=== PATIENT | female | born 1975 | race Caucasian/White ===

== ENCOUNTER 2023-06-27 11:28 | Outpatient (CLI) | payer MEDICAID, SELFPAY | END 2023-06-27 11:29 | disposition home or self-care (01) | PROVIDERS: PCP Family Medicine; Visit Provider Family Medicine | DX: Z00.00 Encounter for general adult medical examination without abnormal findings (principal); E06.3 Autoimmune thyroiditis; R09.89 Other specified symptoms and signs involving the circulatory and respiratory systems; R00.0 Tachycardia, unspecified; Z11.59 Encounter for screening for other viral diseases | CPT/HCPCS: 80053; 80061; 84439; 84443; 86803 ==

== ENCOUNTER 2023-07-01 08:09 | Outpatient (CLI) | payer MEDICAID, SELFPAY | END 2023-07-01 08:10 | disposition home or self-care (01) | LOC: NFLDREF 07-04 05:16 | PROVIDERS: PCP Family Medicine; Referring Provider Family Medicine; Visit Provider Family Medicine | DX: R00.0 Tachycardia, unspecified (principal); R09.89 Other specified symptoms and signs involving the circulatory and respiratory systems | CPT/HCPCS: 82384; 83835 ==

== ENCOUNTER 2023-07-30 08:49 | Outpatient (CLI) | payer MEDICAID, SELFPAY | END 2023-07-30 08:50 | disposition home or self-care (01) | PROVIDERS: PCP Family Medicine; Visit Provider Family Medicine | DX: Z00.00 Encounter for general adult medical examination without abnormal findings (principal); E06.3 Autoimmune thyroiditis; R09.89 Other specified symptoms and signs involving the circulatory and respiratory systems; Z13.21 Encounter for screening for nutritional disorder; Z87.898 Personal history of other specified conditions | CPT/HCPCS: 82306; 82607; 83735; 84439; 84443 ==

== ENCOUNTER 2024-01-23 17:08 | Outpatient (CLI) | payer OTHER, SELFPAY | END 2024-01-23 17:09 | disposition home or self-care (01) | PROVIDERS: PCP Family Medicine; Visit Provider Family Medicine | DX: R42 Dizziness and giddiness (principal) | CPT/HCPCS: 84439; 84443 ==

== ENCOUNTER 2024-05-14 12:17 | Outpatient (CLI) | payer OTHER, SELFPAY | END 2024-05-14 12:18 | disposition home or self-care (01) | PROVIDERS: PCP Family Medicine; Visit Provider Family Medicine | DX: R53.83 Other fatigue (principal); E03.9 Hypothyroidism, unspecified | CPT/HCPCS: 84439; 84443 ==

== ENCOUNTER 2025-02-04 09:46 | Emergency (ER) | payer OTHER, SELFPAY ==
[2025-02-04 09:53] VITALS: BP 159/96; PULSE 96; RESP 20; TEMP 36.6; O2SAT 99; BMI 22.3
--- NOTE | 2025-02-04 12:42 | ED_ITS ---
HPI - General Adult General Date Seen: 02/04/25 Chief complaint: Dizziness/Vertigo Stated complaint: Dizziness, had high BP Time Seen by Provider: 02/04/25 12:27 History of Present Illness HPI narrative: Patient is a 49-year-old woman with complex past medical history here for several episodes of dizziness over the past week. She has a fairly long history of dizzy episodes associated with reported high heart rate and high blood pressures, she has been seen by multiple outside providers for this and has had a stress test, echo, ZIO patch. No specific etiology was found. 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 She says for the past year she has been on 1 particular kind and feels like the dizzy spells have been improved. In the past week she has had 3 episodes lasting about 1 hour each where she has felt dizzy, it these episodes have been marked more with a motion sensation than the lightheadedness that she experienced previously. She is not symptomatic right now aside from a general sense of feeling ?off, but she says this is her baseline. She does note that her heart rate and blood pressure have been increased during these spells. She had an albuterol inhaler for an asthma test this past week and she wonders if this might have set off these symptoms. She denies other specific new problems such as fevers, vomiting, diarrhea, bloody stools, etcetera. Does note that her ferritin has been low in the past but says her hemoglobin is always been normal. Related Data Home Medications ?Medication ?Instructions ?Recorded ?Confirmed levothyroxine 125 mcg tablet 125 mcg PO DAILY 05/14/24 02/04/25 (Unithroid) Previous Rx's ?Medication ?Instructions ?Recorded meclizine 25 mg tablet 25 mg PO BID PRN #10 tabs 02/04/25 Allergies Allergy/AdvReac Type Severity Reaction Status Date / Time No Known Drug Allergies Allergy Verified 02/04/25 09:58 Review of Systems Status of ROS: Reports: 10 or more systems reviewed and unremarkable except as noted in History and below [facility] Medical History URI (upper respiratory infection) ?J06.9 - Acute upper respiratory infection, unspecified (ICD-10) Cough ?R05.9 - Cough, unspecified (ICD-10) delivery delivered ?O82 - Encounter for delivery without indication (ICD-10) Scoliosis ?M41.9 - Scoliosis, unspecified (ICD-10) Family History Mother H/O cancer of gall bladder Father Prostate cancer Exam Narrative: Exam Narrative: Vital signs reviewed In general, alert, nontoxic Head: Normocephalic, atraumatic. Eyes: Sclera clear. Pupils equal and reactive. Extraocular movements are full, no nystagmus. ENT: Mucous membranes moist. Neck: Supple without adenopathy. Heart: Regular rate and rhythm without murmur. Lungs: Clear. No increased work of breathing, crackles or wheezes. Abdomen: Soft, nontender to palpation. Extremities: Well perfused, pulses intact. No significant edema. Neurologic: Alert, conversant. Speech fluent, face symmetric. Moves all extremities equally. No ataxia. Skin: Warm, dry well perfused. Affect: Normal. Const: Vital Signs, click to edit/add: Vital Signs - 24 hr 02/04/25 09:53 Temperature 97.9 F Pulse Rate [Pulse Oximeter] 96 Respiratory Rate 20 Blood Pressure [Ri ght Upper Arm] 159/96 H Pulse Oximetry 99 Oxygen Delivery Me thod Room Air Course Course ED Course: I reviewed her records with us. Below is copied from her annual exam with Dr. Rapp: Patient presents to clinic with a challenging 2 year history of symptoms that have been managed by endocrinology, Cardiology, otolaryngology, Rheumatology, urgent cares and the emergency department. She also has an upcoming appointment with flat locker. She comes with no records. Originally this was supposed to be a physical, but we had to convert this to a new patient establishment of care secondary to time. It took 30 minutes to room the patient, and over an hour of seeing the patient [id number] in order to obtain this history. Patient is exceptionally loquacious and challenging to redirect. She states she does not feel heard. Patient has a history of labile blood pressures but no true diagnosis of hypertension. She has a history of fluctuating thyroid levels for which she has been on varying doses of levothyroxine but only in the past 2 years, otherwise she has been stable at her current dose for almost 2 decades. She has also been on name brand Synthroid as well as generic levothyroxine. She has episodic tachycardia, flushing, and anxiety although when I specifically asked her about many of the symptoms she then denied having them despite having already told me that they were present. She again brings up with me these episodes of high pulse and blood pressure, I have explained with her that I am not going to have an explanation for these as they have been thoroughly explored by specialists without a clear explanation. Her vital signs right now are normal. I will recheck labs including a TSH and free T4, in the past she has had mildly elevated T4 is although it looks as if she has at times declined to change her thyroid medication even when this was elevated. Any case I would refer any changes in her medication for her thyroiditis to her curriculum designer. It does sound as if there is more of a motion component to these episodes this week, discussed with her that this may be more of a vertigo. Certainly does not sound to be a central vertigo, it is very positional and self limited. I reviewed all of her labs with the exception of her thyroid test which are still pending. All of her labs are normal. Her EKG shows a sinus rhythm, ventricular rate of 70, no acute ST segment changes, normal QT, normal T-waves. I have discussed these findings with her, I have recommended that we let her go home as if her thyroid needs to be addressed I would recommend that she do that through her curriculum designer. We will call her if that needs to be addressed. I am going to prescribe meclizine which she can certainly try. Would recommend primary care follow-up, she can knowledge is that she has seen many different people for primary care and is not currently associated with anyone person or clinic system. Recommended that she try to find someone that she can see on a more consistent basis. Return any time for acute worsening or new symptoms. Vital Signs Vital signs: Initial Vital Signs Temperature 97.9 F 02/04/25 09:53 Temperature Source Temporal Artery Scan 02/04/25 09:53 Pulse Rate 96 02/04/25 09:53 Pulse Rhythm Regular 02/04/25 09:53 Pulse Strength 3+ Normal 02/04/25 09:53 Respiratory Rate 02/04/25 09:53 Blood Pressure 159/96 H 02/04/25 09:53 Blood Pressure Mean 117 H 02/04/25 09:53 Blood Pressure Position Sitting 02/04/25 09:53 Pulse Oximetry 99 02/04/25 09:53 Oxygen Delivery Method Room Air 02/04/25 09:53 Vital Signs Temperature 97.9 F 02/04/25 09:53 Pulse Rate 96 02/04/25 09:53 Respiratory Rate 20 02/04/25 09:53 Blood Pressure 159/96 H 02/04/25 09:53 Pulse Oximetry 99 02/04/25 09:53 Oxygen Delivery Method Room Air 02/04/25 09:53 Temperature 97.9 F 02/04/25 09:53 Pulse Rate 96 02/04/25 09:53 Respiratory Rate 02/04/25 09:53 Blood Pressure 159/96 H 02/04/25 09:53 Pulse Oximetry 99 02/04/25 09:53 Oxygen Delivery Method Room Air 02/04/25 09:53 Medical Decision Making Lab Data Lab results reviewed: Yes I reviewed the patient's lab results Labs: Lab Results 02/04/25 Range/Units 13:00 WBC 7.58 (4.50-11.00) K/uL RBC 4.68 (4.00-5.20) m/uL Hgb 14.4 (12.0-16.0) gm/dL Hct 43.0 (33.0-51.0) % MCV 92 (80-100) fL MCH 31 (26-34) pg MCHC 34 (32-36) gm/dL RDW Coeff of Jamila 12.9 (11.5-15.5) % Plt Count 348 (140-440) K/uL Neut % (Auto) 69.4 (42.0-72.0) % Lymph % (Auto) 21.6 (20-44) % Loíza % (Auto) 7.1 (0.0-11.0) % Eos % (Auto) 0.1 (0.0-7.0) % Baso % (Auto) 0.7 (0.0-3.0) % Neut # (Auto) 5.26 (1.7-7.0) K/uL Lymph # (Auto) 1.64 (0.90-2.90) K/uL Loíza # (Auto) 0.50 (0.00-0.90) K/UL Eos # (Auto) 0.01 (0.00-0.50) K/uL Baso # (Auto) 0.05 (0.00-0.30) K/uL Abs Immat Gran (auto) 0.08 (0.00-0.30) K/uL Imm/Tot Granulo (auto) 1.1 % Sodium 140 (135-149) mmol/L Potassium 3.9 (3.6-5.1) mmol/L Chloride 105 (96-114) mmol/L Carbon Dioxide 26 (20-32) mmol/L Anion Gap 9 (7-15) mEq/L BUN 13 (7-30) mg/dL Creatinine 0.8 (0.5-1.5) mg/dL Estimated Creat Clear 84.87 Estimated GFR 90 ml/min Glucose 98 (60-115) mg/dL Calcium 9.3 (8.4-10.6) mg/dL Total Bilirubin 0.7 (0.1-1.5) mg/dL Direct Bilirubin 0.2 (0.0-0.5) mg/dL AST 23 (12-35) U/L ALT 18 (4-35) U/L Alkaline Phosphatase 53 (40-150) U/L Troponin I < 0.01 (0.01-0.04) ng/mL Total Protein 7.7 (6.0-8.3) g/dL Albumin 4.7 (3.3-5.0) g/dL Discharge Plan Discharge Clinical Impression: Dizzy spells Patient Disposition: Home, Self-Care Condition: Stable Instructions: Dizziness (ED) Additional Instructions: I have sent a prescription for meclizine for you, you can certainly try this if you have further dizzy spells. Your thyroid tests are pending, if you have my chart you can check these, otherwise if there is anything abnormal we will call you. I would ask you to discuss any results with your curriculum designer in terms of medication adjustment. Primary care follow-up recommended if you continue to have problems with dizziness. All of your other labs are normal today, your EKG is also. Prescriptions: New meclizine 25 mg tablet 25 mg PO BID PRNQty: 10 0RF No Action levothyroxine [Unithroid] 125 mcg tablet 125 mcg PO DAILY Follow Up/Referrals: Toño Myers MD [Staff Physician] - Stand Alone Forms: [employer] Info Instructions
[2025-02-04 13:19] LABS: Basophils Absolute Auto 0.05 K/uL (0.00-0.30); Basophils Percent Auto 0.7 % (0.0-3.0); Eosinophils Absolute Auto 0.01 K/uL (0.00-0.50); Eosinophils Percent Auto 0.1 % (0.0-7.0); Hemoglobin* 14.4 gm/dL (12.0-16.0); Immature Granulocytes Abs Auto 0.08 K/uL (0.00-0.30); Immature Granulocytes Pct Auto 1.1 %; Lymphocytes Absolute Auto 1.64 K/uL (0.90-2.90); Lymphocytes Percent Auto 21.6 % (20-44); Mean Corpuscular HGB Conc 34 gm/dL (32-36); Mean Corpuscular Hemoglobin 31 pg (26-34); Mean Corpuscular Volume 92 fL (80-100); Monocytes Percent Auto 7.1 % (0.0-11.0); Neutrophils Absolute Auto 5.26 K/uL (1.7-7.0); Neutrophils Percent Auto 69.4 % (42.0-72.0); Platelet Count* 348 K/uL (140-440); RDW Coefficient of Variation % 12.9 % (11.5-15.5); Red Blood Count 4.68 m/uL (4.00-5.20); White Blood Count* 7.58 K/uL (4.50-11.00)
[2025-02-04 13:21] LABS: Slide Review Reflex No
[2025-02-04 13:27] LABS: Albumin* 4.7 g/dL (3.3-5.0); Chloride* 105 mmol/L (96-114); Potassium* 3.9 mmol/L (3.6-5.1); Sodium* 140 mmol/L (135-149)
[2025-02-04 13:29] LABS: Alanine Aminotransferase* 18 U/L (4-35); Anion Gap 9 mEq/L (7-15); Aspartate Amino Transferase* 23 U/L (12-35); Blood Urea Nitrogen* 13 mg/dL (7-30); Carbon Dioxide* 26 mmol/L (20-32); Creatinine* 0.8 mg/dL (0.5-1.5); Est. Creatinine Clearance* 84.87; Estimated Glomerular Filt Rate 90 ml/min
[2025-02-04 13:30] LABS: Alkaline Phosphatase* 53 U/L (40-150); Bilirubin Direct* 0.2 mg/dL (0.0-0.5); Bilirubin Total* 0.7 mg/dL (0.1-1.5); Calcium* 9.3 mg/dL (8.4-10.6); Glucose* 98 mg/dL (60-115); Total Protein* 7.7 g/dL (6.0-8.3)
[2025-02-04 13:44] LABS: Troponin I* < 0.01 ng/mL (0.01-0.04)
--- OUTSIDE RECORDS SUMMARY | 2025-02-04 17:02 | XMS_ITS | Encounter Summary ---
Author Organization [facility] Address [address] [place] [address] Care Team Providers Care Sock And Stocking Ironer Name Role Phone Vicente Avalos MD Unavailable [phone] Dahlia Colindres MD Unavailable [phone] Dahlia Colindres MD Unavailable [phone] Jerson Rodriguez MD Unavailable [phone] Angel James MD Unavailable [phone] Kell Harding MD Primary Care Provider + [phone] Loulou Cage Unavailable Unavailable Ky Talamantes MD Unavailable [phone] Kell Harding MD Unavailable [phone] Ky Talamantes MD Unavailable [phone] Jazz Linn MD Unavailable [phone] Margarette Montemayor NP Unavailable [phone] Zina Og Unavailable Veda Diaz PA-C Unavailable [phone] Veda Diaz PA-C Unavailable [phone] Veda Diaz PA-C Unavailable [phone] None Primary Care Provider Unavailabl e Tejal Jules MD Primary Care Provider [phone] Tejal Jules MD Unavailable [phone] Reason for Visit * Reason Onset Date Comments Transfer of Care 10/31/2023 Encounter Details Date Type Department Care Team (Late st Contact Info) Description 10/31/[address] [address] Margarette Montemayor NP Transfer of Care Social History Tobacco Use Types Packs/Day Years Used Date Smoking Tobacco: Never Passive Smoke Exposure: Never Smokeless Tobacco: Never Alcohol Use Standard Drinks/Week Comments Never 0 (1 standard drink = 0.6 oz pur e alcohol) never PHQ-2 Answer Date Recorded PHQ-2 Score 0 10/29/2023 Adolescent Education Answer Date Record ed Getting School Help Needed Not on file 06/18 Interpersonal Safety Answer Date Record ed Do you feel physically and e motionally safe where you currently live? Yes 10/29/2023 Within the past 12 months, h ave you been hit, slapped, kicked or otherwise physically hurt by someone? No 10/29/2023 Within the past 12 months, h ave you been humiliated or emotionally abused in other ways by your partner or ex-partner? 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 Please review and advise if Pt is okay to transfer care? Pt is scheduled with Veda Diaz for an December appt in [place](Pt did not want to wait until April to get in in [facility]) to establish care/OSIEL. Action Taken: Message routed to: Adult Clinics: Rheumatology p [id number] ITAL ACCOUNT MANAGER documented in this encounter Plan of Treatment Upcoming Encounters Date Type Department Care Team (Late st Contact Info) Description 02/05/2025 8:00 AM CDT Virtual Visit [facility] [address] [place] [phone] Dahlia Frost [facility] [address] [place] [phone] documented as of this encounter Visit Diagnoses Not on filedocumented in this encounter Additional Health Concerns Assessment Noted Time PHQ-9 Depression Total Score: 0 04/05/20 22 9:42 AM CDT documented as of this encounter Care Teams Sock And Stocking Ironer Relationship Specialty Start Date End Date Kell Harding MD [address] [place] [address] PCP - General Internal Medicine - Pediatrics 02/26/23 02/26/24 None PCP - General 02/27/24 03/10/24 Tejal Jules MD [address] [place] [address] PCP - General Family Medicine 03/11/24 Vicente Avalos MD [address] [facility] [address] [place] [address] Assigned Heart and Vascular Provider 03/03/22 08/14/24 Dahlia Colindres MD [address] [place] [address] Ophthalmology 12/28/22 06/10/24 Dahlia Colindres MD [address] [place] [address] Assigned Surgical Provider 01/12/23 07/14/24 Jerson Rodriguez MD [address] [facility] [address] [place] [id number] Internal Medicine 02/14/23 Angel James MD [address] [facility], [address] [place], [place] [address] Resident Internal Medicine - Pediatrics 02/14/23 Loulou Cage Personal Advocate & Liaison (PAL) 02/26/23 01/20/24 Ky Talamantes MD [address] [place] [address] Neurology 03/04/23 Kell Harding MD [address] [facility] [place] [address] Assigned PCP 03/02/23 09/13/24 Ky Talamantes MD [address] [place] [address] Assigned Neuroscience Provider 03/16/23 09/13/24 Jazz Linn MD [address] [place] [address] Assigned Endocrinology Provider 08/31/23 Margarette Montemayor PHYSICAL THERAPY AIDES TEACHER Assigned Rheumatology Provider 10/17/23 11/14/23 Zina Og MBBS [address] [place] [address] Rheumatology 11/08/23 11/19/23 Veda Diaz PA-C [address] [place] [address] Physician Security System Technician Rheumatology 11/20/23 Veda Diaz PA-C [address] [place] [address] Physician Security System Technician Rheumatology 11/20/23 11/20/23 Veda Diaz PA-C [address] [place] [address] Assigned Rheumatology Provider 12/06/23 Tejal Jules MD [address] [address] Assigned PCP 09/14/24 documented as of this encounter
--- OUTSIDE RECORDS SUMMARY | 2025-02-04 17:02 | XMS_ITS | Encounter Summary ---
Author Organization [facility] Address [address] [place] [address] Care Team Providers Care Educational Speech Language Clinician Name Role Phone Vicente Avalos MD Unavailable [phone] Dahlia Colindres MD Unavailable [phone] Dahlia Colindres MD Unavailable [phone] Jerson Rodriguez MD Unavailable [phone] Angel James MD Unavailable [phone] Kell Harding MD Primary Care Provider + [phone] Loulou Cage Unavailable Unavailable Ky Talamantes MD Unavailable [phone] Kell Harding MD Unavailable [phone] Ky Talamantes MD Unavailable [phone] Jazz Linn MD Unavailable [phone] Margarette Montemayor NP Unavailable [phone] Zina Og Unavailable Veda Diaz PA-C Unavailable [phone] Veda Diaz PA-C Unavailable [phone] Veda Diaz PA-C Unavailable [phone] None Primary Care Provider Unavailabl e Tejal Jules MD Primary Care Provider [phone] Tejal Jules MD Unavailable [phone] Encounter Details Date Type Department Care Team ([facility] Contact Info) Description 04/04/2023 MyC Medical Advice [facility] [place] [address] [facility] [address] [place] [address] Kell Harding MD [address] [facility] [place] [address] Social History Tobacco Use Types Packs/Day Years Used Date Smoking Tobacco: Never Smokeless Tobacco: Never Alcohol Use Standard Drinks/Week Comments Never 0 (1 standard drink = 0.6 oz pur e alcohol) never Humiliation, Afraid, Rape, and Kick questionnair e Answer Date Recorded Within the last year, have y ou been afraid of your partner or ex-partner? No 01/02/2023 Within the last year, have y ou been humiliated or emotionally abused in other ways by your partner or ex-partner? No Within the last year, have y ou been kicked, hit, slapped, or otherwise physically hurt by your partner or ex-partner? No 01/02/2023 Within the last year, have y ou been raped or forced to have any kind of sexual activity by your partner or ex-partner? 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 No / Unsure 03/14/2023 8:27 AM CDT documented as of this encounter Plan of Treatment Upcoming Encounters Date Type Department Care Team (Late Contact Info) Description 02/05/2025 8:00 AM CDT Virtual Visit [facility] [place] [address] [facility] [address] [place] [phone] Dahlia Frost, PA-C [address] [place] [address] documented as of this encounter Visit Diagnoses Not on filedocumented in this encounter Additional Health Concerns Assessment Noted Time PHQ-9 Depression Total Score: 0 04/05/20 9:42 AM CDT documented as of this encounter Care Teams Educational Speech Language Clinician Relationship Specialty Start Date End Date Kell Harding MD [address] [place] [address] PCP - General Internal Medicine - Pediatrics 02/26/23 02/26/24 None PCP - General 02/27/24 03/10/24 Tejal Jules MD [address] [place] [address] PCP - General Family Medicine 03/11/24 Vicente Avalos MD [address] [place] [address] Assigned Heart and Vascular Provider 03/03/22 08/14/24 Dahlia Colindres MD [address] [place] [address] Ophthalmology 12/28/22 06/10/24 Dahlia Colindres MD [address] [place] [address] Assigned Surgical Provider 01/12/23 07/14/24 Jerson Rodriguez MD [address] [place] [address] Internal Medicine 02/14/23 Angel James MD [address] [facility] [place] [address] Resident Internal Medicine - Pediatrics 02/14/23 Loulou Cage Personal Advocate & Liaison (PAL) 02/26/23 01/20/24 Ky Talamantes MD [address] [place], [place] [id number] Neurology 03/04/23 [place] [address] [place] [address] [place] [address] Assigned PCP 03/02/23 09/13/24 Ky Talamantes MD [address] [place], [place] [id number] Assigned Neuroscience Provider 03/16/23 09/13/24 Jazz Linn MD [address] [place] [phone] Assigned Endocrinology Provider 08/31/23 Margarette Montemayor, BICYCLE MECHANIC Assigned Rheumatology Provider 10/17/23 11/14/23 Zina Og MBBS [address] [place] [address] Rheumatology 11/08/23 11/19/23 Veda Diaz PA-C [address] [place] [address] Physician Bread Room Hand Rheumatology 11/20/23 Veda Diaz PA-C [address] [place] [address] Physician Bread Room Hand Rheumatology 11/20/23 11/20/23 Veda Diaz PA-C [address] [place] [address] Assigned Rheumatology Provider 12/06/23 Tejal Jules MD [address] [facility] [address] [place] [address] Assigned PCP 09/14/24 documented as of this encounter
--- OUTSIDE RECORDS SUMMARY | 2025-02-04 17:02 | XMS_ITS | Clinical Summary ---
Author Organization [facility] Address [address] [place] [address] Care Team Providers Care Signal Worker Name Role Phone None, Md Primary Care Provider [facility] Clinic, No Primary Unavailable Unavailable Allergies No known active allergies Medications UNITHROID 125 mcg oral tablet Take 1 tablet (125 mcg) by mouth once daily. 07/06/2024 Active Active Problems No known active problems Social History Tobacco Use Types Packs/Day Years Used Date Smoking Tobacco: Never Smokeless Tobacco: Never Alcohol Use Standard Drinks/Week Comments Never 0 (1 standard drink = 0.6 oz pur e alcohol) Humiliation, Afraid, Rape, and Kick questionnair e Answer Date Recorded Within the last year, have y ou been afraid of your partner or ex-partner? No 10/16/2023 Within the last year, have y ou been humiliated or emotionally abused in other ways by your partner or ex-partner? No Within the last year, have y ou been kicked, hit, slapped, or otherwise physically hurt by your partner or ex-partner? No 10/16/2023 Within the last year, have y ou been raped or forced to have any kind of sexual activity by your partner or ex-partner? No 10/16/2023 Comments Unknown Sex and Gender Information Value Date Recorded Sex Assigned at Not on file Legal Sex Female 12:50 PM CDT Gender Identity Not on file Sexual Orientation Not on file Last Filed Vital Signs Vital Sign Reading Time Taken Comments Blood Pressure 128/82 07/09/2024 1:04 PM CDT Pulse 80 07/09/2024 1:04 PM CDT Temperature 35.9 C (96.7 F) 07/09/2024 1:04 PM CDT Respiratory Rate 16 10/16/2023 1:48 PM DELIVERY MOTORCYCLE DRIVER Oxygen Saturation 96% 10/16/2023 1:48 PM DELIVERY MOTORCYCLE DRIVER Inhaled Oxygen Concentration - - Weight 65.4 kg (144 lb 3.2 oz) 07/09/2024 1:04 P M CDT Height 170.2 cm (5' 7) 01/27/2024 4:21 PM CDT Body Mass Index 22.58 01/27/2024 4:21 PM CDT Plan of Treatment Health Maintenance Due Date Last Done Comments Colonoscopy 1974 Lipid Screening 1974 Pap Smear 1974 Anxiety Screening (INÉS-2) 1975 Depression Assessment (PHQ-2) 1975 Adult Tetanus Booster 11/26/2023 11/25/2013 , 08/11/2003, 08/11/2003, Additional history exists COVID-19 Vaccine (1 - season) 2024 Pneumococcal 50+ Years (1 of 1 - PCV) 2024 Zoster Vaccine (1 of 2) 2024 Yearly Review of HCD 10/15/2024 10/16/2023 Influenza Vaccine (Season Ended) 2025 06/23/2009, 06/23/2009, 06/23/2009 Mammogram Screening 01/20/2026 01/21/2024, 01/21/2024, 07/09/2023, Additional history exists RSV Vaccines (1 - 1-dose 75+ series) 2049 Hepatitis C Screening Completed 11/28/2016 Meningococcal B Vaccine Aged Out No l onger eligible based on patient's age to complete this topic Insurance [facility] Care Teams Signal Worker Relationship Specialty Start Date End Date None, PCP - General Family Medicine - 08/07/23 Clinic, No Primary PCP - Primary Care Clinic 08/07/23
--- OUTSIDE RECORDS SUMMARY | 2025-02-04 17:02 | XMS_ITS | Referral Summary ---
Author Organization [facility] Address [address] [place] [address] Care Team Providers Care Organ Grinder Name Role Phone None, Md Primary Care Provider [facility] e Clinic, No Primary Unavailable Unavailable [...] CDT Respiratory Rate 16 10/16/2023 1:48 PM PHOTOGRAPHIC EDITOR Oxygen Saturation 96% 10/16/2023 1:48 PM PHOTOGRAPHIC EDITOR Inhaled Oxygen Concentration - - Weight 65.4 kg (144 lb 3.2 oz) 07/09/2024 1:04 P M CDT Height 170.2 cm (5' 7) 01/27/2024 4:21 PM CDT Body Mass Index 22.58 01/27/2024 4:21 PM CDT Plan of Treatment Not on file Insurance [place] [employer] [id number] [facility] OPEN ACCESS/CHOICE [facility] Care Teams Organ Grinder Relationship Specialty Start Date End Date None, PCP - General Family Medicine - 08/07/23 Clinic, No Primary PCP - Primary Care Clinic 08/07/23
--- OUTSIDE RECORDS SUMMARY | 2025-02-04 17:02 | XMS_ITS | Encounter Summary ---
Author Organization [facility] Address [address] [place] [address] Care Team Providers Care Shield Installer Name Role Phone Vicente Avalos MD Unavailable [phone] Dahlia Colindres MD Unavailable [phone] Dahlia Colindres MD Unavailable [phone] Jerson Rodriguez MD Unavailable [phone] Angel James MD Unavailable [phone] Kell Harding MD Primary Care Provider + [phone] Loulou Cage Unavailable Unavailable Ky Talamantes MD Unavailable [phone] Kell Harding MD Unavailable [phone] Ky Talamantes MD Unavailable [phone] Jazz Linn MD Unavailable [phone] Margarette Montemayor NP Unavailable +[phone] Zina Og Unavailable Veda Diaz PA-C Unavailable +[phone] Veda Diaz PA-C Unavailable [phone] Veda Diaz PA-C Unavailable + [phone] None Primary Care Provider Unavailabl e Tejal Jules MD Primary Care Provider [phone] Tejal Jules MD Unavailable [phone] Encounter Details Date Type Department Care Team (Late Contact Info) Description 09/03/2023 MyC Medical Advice [facility] [address] [place] [address] Jazz Linn MD [address] [place] [address] Social History Tobacco Use Types Packs/Day Years [...] Answer Date Recorded PHQ-2 Score 0 01/02/2023 Adolescent Education Answer Date Record ed Getting School Help Needed Not on file 06/18 Comments No Sex and Gender Information Value Date Recorded Sex Assigned at Not on file 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 Gender Identity Not on file Sexual Orientation Not on file 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 Not on file Not on f ile documented as of this encounter Plan of Treatment Upcoming Encounters Date Type Department Care Team (Late Contact Info) Description 02/05/2025 8:00 AM CDT Virtual Visit [facility] [address] 3rd [place] [phone] Dahlia Frost PA-Russell [address] [place] [address] [id number] documented as of this encounter Visit Diagnoses Not on filedocumented in this encounter Additional Health Concerns Assessment Noted Time PHQ-9 Depression Total Score: 0 04/05/20 9:42 AM CDT documented as of this encounter Care Teams Shield Installer Relationship Specialty Start Date End Date Kell Harding MD [address] [facility] [place] [address] PCP - General Internal Medicine - Pediatrics 02/26/23 02/26/24 None PCP - General 02/27/24 03/10/24 Tejal Jules MD [address] [facility] [address] [place] [address] PCP - General Family Medicine 03/11/24 Vicente Avalos MD [address] [place] [address] Assigned Heart and Vascular Provider 03/03/22 08/14/24 Dahlia Colindres MD [address] [place] [address] Ophthalmology 12/28/22 06/10/24 Dahlia Colindres MD [address] [place], [place] [id number] Assigned Surgical Provider 01/12/23 07/14/24 Jerson Rodriguez MD [facility] [place] [address] Internal Medicine 02/14/23 Angel James MD [address] [facility], ZET[address]22 [place], [place] [id number] Resident Internal Medicine - Pediatrics 02/14/23 Loulou Cage Personal Advocate & Liaison (PAL) 02/26/23 01/20/24 Ky Talamantes MD [address] [place], [place] [phone] Neurology 03/04/23 Kell Harding MD [address] [place] [address] Assigned PCP 03/02/23 09/13/24 Ky Talamantes MD [address] [place], [place] [address] Assigned Neuroscience Provider 03/16/23 09/13/24 Jazz Linn MD 909 [place] [phone] Assigned Endocrinology Provider 08/31/23 Margarette Montemayor, CONVEYOR MECHANIC Assigned Rheumatology Provider 10/17/23 11/14/23 Zina Og MBBS [address] [place], [place] [phone] Rheumatology 11/08/23 11/19/23 Veda Diaz PA-C [address] [place], [place] [phone] Physician Computer Repair Instructor Rheumatology 11/20/23 Veda Diaz PA-C [address] [place] [address] Physician Computer Repair Instructor Rheumatology 11/20/23 11/20/23 Veda Diaz PA-C [address] [place] [address] Assigned Rheumatology Provider 12/06/23 Tejal Jules MD [address] [address] Assigned PCP 09/14/24 documented as of this encounter
--- OUTSIDE RECORDS SUMMARY | 2025-02-04 17:03 | XMS_ITS | Encounter Summary ---
Author Organization [facility] Address [address] [place] [address] Care Team Providers Care Fire Fighter Airport Name Role Phone No Ref-Primary, Physician Primary Care Provider Vicente Avalos MD Unavailable [phone] Kory Garcia MD Unavailable Dahlia Colindres MD Unavailable [phone] Dahlia Colindres MD Unavailable [phone] Jerson Rodriguez MD Unavailable [phone] Angel James MD Unavailable [phone] Kell Harding MD Primary Care Provider + [phone] Loulou Cage Unavailable Unavailable Ky Talamantes MD Unavailable [phone] Kell Harding MD Unavailable [phone] Ky Talamantes MD Unavailable [phone] Jazz Linn MD Unavailable [phone] Margarette Montemayor NP Unavailable Zina Og Unavailable Veda Diaz PA-C Unavailable Veda Diaz PA-C Unavailable Rober Diazlandy Peacock PA-C Unavailable + [phone] None Primary Care Provider Unavailritesh e Tejal Jules MD Primary Care Provider + [phone] Tejal Jules MD Unavailable [phone] Reason for Visit * Reason Onset Date Comments Call Back 02/19/2023 Encounter Details Date Type Department Care Team (Late st Contact Info) Description 02/19/2023 Telephone [facility] Endocrinology Clinic [address] 3rd [place] [address] None Call Back Social History Tobacco Use Types Packs/Day Years [...] on file 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 No / Unsure 05/16/2023 12:38 PM CDT documented as of this encounter Miscellaneous Notes * Telephone Encounter - Saida Malhotra MD - 02/19/2023 9:43 PM CDT Endocrine triage 07/05/22 TSH 2.09, cortisol 10.2 11/29/22 metanephrine 0.35, normetanephrine 0.87, renin activity 1.4, aldosterone 9 02/12/23 TSh 0.6 02/19/23 ED visit TSH 1.91-- ED notes refer to LT4 dose changes. Dr Flores, please clarify what is the endocrine emergency? All of the endocrine tests are normal. Your note states she already has an enamel drier. The scheduled first available endocrine appointment timeframe is acceptable. E- consult may be an option for answer to specific question by the referring provider. E-consults generally have a responsewithin 3 days. Saida Malhotra MD * Telephone Encounter - Dee Renteria - 02/19/2023 1:03 PM CDT [facility] Call Center Phone Message May a detailed message be left on voicemail: yes Reason for Call: Appointment Intake Referring Provider Name: ELIDA FLORES, Diagnosis and/or Symptoms: History of Yusuf thyroiditis, Palpitations, Emergency: 1-2 Days Action Taken: Other: Endo Travel Screening: Not Applicable documented in this encounter Plan of Treatment Upcoming Encounters Date Type Department Care Team (Late st Contact Info) Description 02/05/2025 8:00 AM CDT Virtual Visit [facility] [address] [place] [address] Dahlia Frost PAYolis [address] [place] [phone] documented as of this encounter Visit Diagnoses Not on filedocumented in this encounter Additional Health Concerns Assessment Noted Time PHQ-9 Depression Total Score: 0 04/05/20 9:42 AM CDT documented as of this encounter Care Teams Fire Fighter Airport Relationship Specialty Start Date End Date No Ref-Primary, Physician PCP - General 03/02/22 02/25/23 Kell Harding MD [address] [facility] [place] [address] PCP - General Internal Medicine - Pediatrics 02/26/23 02/26/24 None PCP - General 02/27/24 03/10/24 Tejal Jules MD [address] [facility] 100 [place] [address] PCP - General Family Medicine 03/11/24 Vicente Avalos MD [address] [facility] [address] [place] [address] Assigned Heart and Vascular Provider 03/03/22 08/14/24 Kory Garcia MD [address] [place] [address] Assigned PCP 07/14/22 03/01/23 Dahlia Colindres MD [address] [place] [address] Ophthalmology 12/28/22 06/10/24 Dahlia Colindres MD [address] [place], [place] [address] Assigned Surgical Provider 01/12/23 07/14/24 Jerson Rodriguez MD [address] [place] [address] [place] [address] Internal Medicine 02/14/23 Angel James MD [address] [place] [address], [address] [place] [address] Resident Internal Medicine - Pediatrics 02/14/23 Loulou Cage Personal Advocate & Liaison (PAL) 02/26/23 01/20/24 Ky Talamantes MD [address] [place] [address] Neurology 03/04/23 Kell Harding MD [address] [place] [address] Assigned PCP 03/02/23 09/13/24 Ky Talamantes MD [address] [place] [address] Assigned Neuroscience Provider 03/16/23 09/13/24 Jazz Linn MD [address]09 [place] [phone] Assigned Endocrinology Provider 08/31/23 Margarette Montemayor NP Assigned Rheumatology Provider 10/17/23 11/14/23 Zina Og MBBS [address]45 [place] [address] Rheumatology 11/08/23 11/19/23 Veda Diaz PA-C [address] [place] [address] Physician Key Bed Installer Rheumatology 11/20/23 Veda Diaz PA-C [address] [place] [address] Physician Key Bed Installer Rheumatology 11/20/23 11/20/23 Veda Diaz PA-C [address] [place] [address] Assigned Rheumatology Provider 12/06/23 Tejal Jules MD [address] [address] Assigned PCP 09/14/24 documented as of this encounter
--- OUTSIDE RECORDS SUMMARY | 2025-02-04 17:03 | XMS_ITS | Encounter Summary ---
Author Organization [facility] Address [address] [place] [address] Care Team Providers Care Optical Glass Sawyer Name Role Phone No Ref-Primary, Physician Primary Care Provider Vicente Avalos MD Unavailable [phone] Kory Garcia MD Unavailable Dahlia Colindres MD Unavailable [phone] Dahlia Colindres MD Unavailable [phone] Jerson Rodriguez MD Unavailable [phone] Angel James MD Unavailable Kell Harding MD Primary Care Provider + [phone] Loulou Cage Unavailable Unavailable Ky Talamantes MD Unavailable [phone] Kell Harding MD Unavailable [phone] Ky Talamantes MD Unavailable [phone] Jazz Linn MD Unavailable [phone] Margarette Montemayor NP Unavailable Zina Og Unavailable Veda Diaz PA-C Unavailable Veda Diaz PA-C Unavailable Rober Diazlandy Peacock PA-C Unavailable + [phone] Primary Care Provider UnavailTejal Swift MD Primary Care Provider + [phone] Tejal Jules MD Unavailable [phone] Reason for Visit * Reason Onset Date Comments Appointment 02/19/2023 Encounter Details Date Type Department Care Team (Late st Contact Info) Description 02/19/2023 Telephone [facility] Endocrinology Clinic [address] [place] [address] Jazz Linn MD [address] [place] [address] Appointment Social History Tobacco Use Types Packs/Day Years [...] on file 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 No / Unsure 05/16/2023 12:38 PM CDT documented as of this encounter Miscellaneous Notes * Telephone Encounter - Eloise Parrish RN - 02/19/2023 4:51 PM CDT TFT normal Am I missing Something with fast hear rate ? Saw hypertension ? Eloise Parrish, RN on 02/19/2023 at 4:52 PM * Telephone Encounter - Meghna Harvey - 02/19/2023 4:18 PM CDT [facility] Call Center Phone Message May a detailed message be left on voicemail: yes Reason for Call: Other: Per referral, patient needs to be seen in 1-2 days. Please call patient to set up and also patient is scheduled for Aug [address] Linn. and on the wait list Action Taken: Other: Endo Travel Screening: Not Applicable documented in this encounter Plan of Treatment Upcoming Encounters Date Type Department Care Team (Late st Contact Info) Description 02/05/2025 8:00 AM CDT Virtual Visit [facility] Physical Medicine and Rehabilitation Clinic [address] [phone] Dahlia Frost, PA-C [address] [place] [address] documented as of this encounter Visit Diagnoses Not on filedocumented in this encounter Additional Health Concerns Assessment Noted Time PHQ-9 Depression Total Score: 0 04/05/20 22 9:42 AM CDT documented as of this encounter Care Teams Optical Glass Sawyer Relationship Specialty Start Date End Date No Ref-Primary, Physician PCP - General 03/02/22 02/25/23 Kell Harding MD [address] [place], [place] [phone] PCP - General Internal Medicine - Pediatrics 02/26/23 02/26/24 None PCP - General 02/27/24 03/10/24 Tejal Jules MD [address] [facility] 100 [place] [address] PCP - General Family Medicine 03/11/24 Vicente Avalos MD [address] [facility] [address] [place], [place] [address] Assigned Heart and Vascular Provider 03/03/22 08/14/24 Kory Garcia MD [address] [place], [place] [address] Assigned PCP 07/14/22 03/01/23 Dahlia Colindres MD [address] [place] [address] Ophthalmology 12/28/22 06/10/24 Dahlia Colindres MD [address] [place], [place] [address] Assigned Surgical Provider 01/12/23 07/14/24 Jerson Rodriguez MD [facility] [facility] [address] [place], [place] [id number] Internal Medicine 02/14/23 Angel James MD [address] [place] [address], [address] [address] Resident Internal Medicine - Pediatrics 02/14/23 Loulou Cage Personal Advocate & Liaison (PAL) 02/26/23 01/20/24 Ky Talamantes MD [address] [place] [address] Neurology 03/04/23 Kell Harding MD [address] [place] [address] Assigned PCP 03/02/23 09/13/24 Ky Talamantes MD [address] [place] [address] Assigned Neuroscience Provider 03/16/23 09/13/24 Jazz Linn MD [address] [place] [phone] Assigned Endocrinology Provider 08/31/23 Margarette Montemayor NP Assigned Rheumatology Provider 10/17/23 11/14/23 Zina Og MBBS [address] [place] [address] Rheumatology 11/08/23 11/19/23 Veda Diaz PA-C [address] [place] [address] Physician Bowstring Maker Rheumatology 11/20/23 Veda Diaz PA-C [address] [place] [address] Physician Bowstring Maker Rheumatology 11/20/23 11/20/23 Veda Diaz PA-C [address] [place] [address] Assigned Rheumatology Provider 12/06/23 Tejal Jules MD [address] [facility] 100 [place] [address] Assigned PCP 09/14/24 documented as of this encounter
--- OUTSIDE RECORDS SUMMARY | 2025-02-04 17:03 | XMS_ITS | Encounter Summary ---
Author Organization [facility] Address [address] [place] [address] Care Team Providers Care Filter Operator Name Role Phone No Ref-Primary, Physician Primary Care Provider Vicente Avalos MD Unavailable [phone] Kory Garcia MD Unavailable Dahlia Colindres MD Unavailable Dahlia Colindres MD Unavailable [phone] Jerson Rodriguez MD Unavailable Angel James MD Unavailable [phone] Angel James MD Unavailable [phone] Kell Harding MD Primary Care Provider + [phone] Loulou Cage Unavailable Unavailable Ky Talamantes MD Unavailable [phone] Kell Harding MD Unavailable [phone] Ky Talamantes MD Unavailable [phone] Jazz Linn MD Unavailable [phone] Margarette Montemayor NP Unavailable [phone] Zina Og Unavailable Veda Diaz PA-C Unavailable [phone] Veda Diaz PA-C Unavailable Veda Diaz PA-C Unavailable None Primary Care Provider UnavailTejal Swift MD Primary Care Provider Tejal Jules MD Unavailable Encounter Details Date Type Department Care Team (Late st Contact Info) Description 10/23/2022 MyC Medical Advice [facility] [address] [facility], [address] [place] [phone] Libia Ritter PA-C [address] [facility] [address] [place] [address] Social History Tobacco Use Types Packs/Day Years Used Date Smoking Tobacco: Never Smokeless Tobacco: Never Alcohol Use Standard Drinks/Week Comments Never 0 (1 standard drink = 0.6 oz pur e alcohol) never PHQ-2 Answer Date Recorded PHQ-2 Score 0 10/23/2022 Comments No Sex and Gender Information Value Date Recorded Sex Assigned at Not on file 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 No / Unsure 10/23/2022 8:28 AM PARAMEDIC RN documented as of this encounter Miscellaneous Notes * Telephone Encounter - Jordana Castillo CMA - 10/24/2022 11:06 AM CST Please see [employer] message MEDIC RN documented in this encounter Plan of Treatment Upcoming Encounters Date Type Department Care Team (Late st Contact Info) Description 02/05/2025 8:00 AM CDT Virtual Visit [facility] Physical Medicine and Rehabilitation Clinic [address] 3rd [place] [phone] Dahlia Frost PA-C [address] [place] [address] documented as of this encounter Visit Diagnoses Not on filedocumented in this encounter Additional Health Concerns Assessment Noted Time PHQ-9 Depression Total Score: 0 04/05/20 9:42 AM CDT documented as of this encounter Care Teams Filter Operator Relationship Specialty Start Date End Date No Ref-Primary, Physician PCP - General 03/02/22 02/25/23 Kell Harding MD [address] [place] [address] PCP - General Internal Medicine - Pediatrics 02/26/23 02/26/24 None PCP - General 02/27/24 03/10/24 Tejal Jules MD [address] [facility] 100 [place] [address] PCP - General Family Medicine 03/11/24 Vicente Avalos MD [address] [facility] [address] [place] [address] Assigned Heart and Vascular Provider 03/03/22 08/14/24 Kory Garcia MD [address] [place], [place] [address] Assigned PCP 07/14/22 03/01/23 Dahlia Colindres MD [address] [place] [address] Ophthalmology 12/28/22 06/10/24 Dahlia Colindres MD [address] [place] [address] Assigned Surgical Provider 01/12/23 07/14/24 Jerson Rodriguez MD [address] [facility] [address] [place] [id number] Internal Medicine 02/14/23 Angel James MD [address] [place] [address], [address] [id number] Resident Internal Medicine - Pediatrics 02/14/23 02/14/23 Angel James MD [address] [place] [address] Resident Internal Medicine - Pediatrics 02/14/23 Loulou Cage Personal Advocate & Liaison (PAL) 02/26/23 01/20/24 Ky Talamantes MD [address] [place], [place] [phone] Neurology 03/04/23 Kell Harding MD [address] [facility] [place] [address] Assigned PCP 03/02/23 09/13/24 Ky Talamantes MD [address] [place] [id number] Assigned Neuroscience Provider 03/16/23 09/13/24 Jazz Linn MD [address] [place] [address] Assigned Endocrinology Provider 08/31/23 Margarette Montemayor NP Assigned Rheumatology Provider 10/17/23 11/14/23 Zina Og MBBS [address] [place] [address] Rheumatology 11/08/23 11/19/23 Veda Diaz PA-C [address] [place] [address] Physician Director Of Acquisition Marketing Rheumatology 11/20/23 Veda Diaz PA-C [address] [place] [address] Physician Director Of Acquisition Marketing Rheumatology 11/20/23 11/20/23 Veda Diaz PA-C [address] [place] [address] Assigned Rheumatology Provider 12/06/23 Tejal Jules MD [address] [address] Assigned PCP 09/14/24 documented as of this encounter
--- OUTSIDE RECORDS SUMMARY | 2025-02-04 17:03 | XMS_ITS | Encounter Summary ---
Author Organization [facility] Address [address] [place] [address] Care Team Providers Care Sales Producer Name Role Phone Vicente Avalos MD Unavailable [phone] Dahlia Colindres MD Unavailable [phone] Dahlia Colindres MD Unavailable [phone] Jerson Rodriguez MD Unavailable [phone] Angel James MD Unavailable [phone] Kell Harding MD Primary Care Provider + [phone] Loulou Cage Unavailable Unavailable Ky Talamantes MD Unavailable [phone] Kell Harding MD Unavailable [phone] Ky Talamantes MD Unavailable [phone] Jazz Linn MD Unavailable [phone] Margarette Montemayor NP Unavailable [phone] Zina Og Unavailable Veda Diaz PA-C Unavailable [phone] Veda Diaz PA-C Unavailable [phone] Veda Diaz PA-C Unavailable + [phone] None Primary Care Provider Unavailabl e Tejal Jules MD Primary Care Provider [phone] Tejal Jules MD Unavailable [phone] Encounter Details Date Type Department Care Team (Late Contact Info) Description 11/02/2023 MyC Medical Advice [facility] Endocrinology Clinic [address] [address] Jazz Linn MD [address] [place] [address] Social History Tobacco Use Types Packs/Day [...] on file 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 Gender Identity Not on file Sexual Orientation Not on file 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 Not on f ile documented as of this encounter Plan of Treatment Upcoming Encounters Date Type Department Care Team (Late Contact Info) Description 02/05/2025 8:00 AM CDT Virtual Visit [facility] Rehabilitation Clinic [address] [address] Dahlia Frost, PA-C [address] [place] [address] documented as of this encounter Visit Diagnoses Not on filedocumented in this encounter Additional Health Concerns Assessment Noted Time PHQ-9 Depression Total Score: 0 04/05/20 9:42 AM CDT documented as of this encounter Care Teams Sales Producer Relationship Specialty Start Date End Date Kell Harding MD [address] [facility] [place] [address] PCP - General Internal Medicine - Pediatrics 02/26/23 02/26/24 None PCP - General 02/27/24 03/10/24 Tejal Jules MD [address] [facility] [address] [place] [address] PCP - General Family Medicine 03/11/24 Vicente Avalos MD [address] [place] [address] Assigned Heart and Vascular Provider 03/03/22 08/14/24 Dahlia Colindres MD [address] [place] [address] [place] [address] Ophthalmology 12/28/22 06/10/24 Dahlia Colindres MD [address] [place] [address] Assigned Surgical Provider 01/12/23 07/14/24 Jerson Rodriguez MD [address] [place] [id number] Internal Medicine 02/14/23 Angel James MD [address] [place] [address], [address] [place] [address] Resident Internal Medicine - Pediatrics 02/14/23 Loulou Cage Personal Advocate & Liaison (PAL) 02/26/23 01/20/24 Ky Talamantes MD [address] [place] [address] Neurology 03/04/23 Kell Harding MD [address] [place] [address] Assigned PCP 03/02/23 09/13/24 Ky Talamantes MD [address] [place] [address] Assigned Neuroscience Provider 03/16/23 09/13/24 Jazz Linn MD [address]09 [place] [address] Assigned Endocrinology Provider 08/31/23 Margarette Montemayor NP Assigned Rheumatology Provider 10/17/23 11/14/23 Zina Og [facility]BS [facility] [place] [address] Rheumatology 11/08/23 11/19/23 Veda Diaz PA-C [address] [place], [place] [address] Physician Geography Professor Rheumatology 11/20/23 Veda Diaz PA-C [address] [place] [address] Physician Geography Professor Rheumatology 11/20/23 11/20/23 Veda Diaz PA-C [address] [place] [address] Assigned Rheumatology Provider 12/06/23 Tejal Jules MD [address] [address] Assigned PCP 09/14/24 documented as of this encounter
--- OUTSIDE RECORDS SUMMARY | 2025-02-04 17:03 | XMS_ITS | Clinical Summary ---
Author Organization [facility] Address [address] [facility] , [address] [place] [address] Phone Care Team Providers Care Process Owner Name Role Phone [facility] Unavailable Unava ilable Conditions or Problems Problem Name Problem Code Onset Date Status Entry Date Provider Comment Standard Description Annotate Hypothyroidis m 24456260 (SNOMED CT) 06/19 Active 06/19 Maurice Rodriguez MD Hypothyroidism Vitamin B12 deficiency - Borderline low 500621912 (SNOMED CT) 06/19 Active 06/19 Maurice Rodriguez MD Cobalamin deficiency Neuropathic pain 295061299 (SNOMED CT) 11/05 Active 11/05 Maurice Rodriguez MD Neuropathic pain VERTIGINOUS DISORDER 54619497 (SNOMED CT) 12/11 Resolved 12/12 Maurice Rodriguez MD Vertiginous syndrome LACK OF COORDINATION 439829321 (SNOMED CT) 12/11 Resolved 12/12 Maurice Rodriguez MD Incoordination LATE EFF NECK STRAIN 905.7 (ICD-9-CM) 12/11 Resolved 12/12 Maurice Rodriguez MD Late effect of sprain and strain without mention of tendon injury POSTCONCUSSIO N SYNDROME 43197184 (SNOMED CT) 12/11 Resolved 12/12 Maurice Rodriguez MD Postconcussion syndrome VERTIGO, PERIPHERAL 24096738 (SNOMED CT) 04/03 Resolved 04/03 Maurice Rodirguez MD Peripheral vertigo HEAD INJURY, UNSPECIFIED 38581636 (SNOMED CT) Resolved Maurice Rodriguez MD Injury of head FACIAL FRACTURE 802.4 (ICD-9-CM) Resolved Maurice Rodriguez MD Malar and maxillary bones, closed fracture Paresthesia, hands 313007877 (SNOMED CT) 11/05 Active 11/05 Maurice Rodriguez MD Paresthesia of hand Paresthesia, bilateral legs 40786874 (SNOMED CT) 11/05 Active 11/05 Maurice Rodriguez MD Paresthesia FACIAL FRACTURE 802.4 (ICD-9-CM) Removed Kimmy Ly Malar and maxillary bones, closed fracture MRI, BRAIN, ABNORMAL 080583831 (SNOMED CT) Active Kimmy Ly Magnetic resonance imaging of brain abnormal HEAD INJURY, UNSPECIFIED 08228422 (SNOMED CT) Removed Kimmy Ly Injury of head VERTIGO, PERIPHERAL 98630543 (SNOMED CT) 04/03 Removed 04/03 Kimmy Ly Peripheral vertigo POSTCONCUSSIO N SYNDROME 04352515 (SNOMED CT) 12/11 Removed 12/12 Speedy Kycia Postconcussion syndrome LATE EFF NECK STRAIN 905.7 (ICD-9-CM) 12/11 Removed 12/12 Speedy Kycia Late effect of sprain and strain without mention of tendon injury LACK OF COORDINATION 604494061 (SNOMED CT) 12/11 Removed 12/12 Speedy Kycia Incoordination VERTIGINOUS DISORDER 99993186 (SNOMED CT) 12/11 Removed 12/12 Speedy Kycia Vertiginous syndrome Medications Medication Instructions Start Date Stop Date Generic Name NDC Provider UNITHROID 112 MCG TABS 03/17 levothyroxine 03444337511 Nuno Casanova MD UNITHROID 125 MCG TABS levothyroxine 12779930752 Nuno Casanova MD LEVOTHYROXINE SODIUM 112 MCG TABS null 02/10 levothyroxine 86504613217 Gladys Lemus PA-C UNITHROID 112 MCG TABS 03/17 levothyroxine 33323108897 Gladys Lemus PA-C VITAMIN D3 1.25 MG (69308 UT) CAPS TAKE 1 CAPSULE (50,000 UNITS) BY MOUTH ONCE EVERY WEEK. cholecalciferol (vitamin d3) 00416460799 Gladys Lemus PA-C VITAMIN B-12 1000 MCG TABS Take 1 tablet by mouth once a day 06/19 cyanocobalamin (vitamin b-12) 82233830114 Maurice Rodriguez MD MULTIVITAMINS TABS Prescribed by Family PETE 06/19 MULTIVITAMINS TABS Maurice Rodriguez MD SYNTHROID 137 MCG TABS Prescribed by Family PETE 06/19 levothyroxine 08041175288 Maurice Rodriguez MD LEVOTHYROXINE SODIUM 112 MCG TABS null 02/10 levothyroxine 60677324956 Maurice Rodriguez MD LEVOTHYROXINE SODIUM 137 MCG TABS Take 0.75 tablet by mouth once a day 06/19 levothyroxine 26518487610 Maurice Rodriguez MD Multiple Vitamin null 06/19 MULTI-VITAMIN OR Maurice Rodriguez MD VITAMIN D TABS Prescribed by Family PETE 06/19 VITAMIN D TABS Maurice Rodriguez MD IRON 325 (65 Fe) MG TABS Take 1 tablet by mouth once a day 06/19 FERROUS SULFATE Maurice Rodriguez MD VITAMIN D (ERGOCALCIFEROL) 61468 UNIT CAPS Take 48399 unit by mouth once a week 06/19 ergocalciferol (vitamin d2) 56064545643 Maurice Rodriguez MD VITAMIN D3 1.25 MG (85056 UT) CAPS Take 1250 mcg by mouth once a week 06/19 cholecalciferol (vitamin d3) 93383911559 Maurice Rodriguez MD Multiple Vitamin null 06/19 MULTI-VITAMIN OR QIEUSER QIEUSER LEVOTHYROXINE SODIUM 137 MCG TABS Take 0.75 Tabs by mouth daily. 06/19 levothyroxine 55800581230 QIEUSER QIEUSER VITAMIN D (ERGOCALCIFEROL) 36909 UNIT CAPS Take 50,000 Units by mouth once every week. 06/19 ergocalciferol (vitamin d2) 93295928798 QIEUSER QIEUSER VITAMIN D3 1.25 MG (29680 UT) CAPS Take 1,250 mcg by mouth every 7 days 06/19 cholecalciferol (vitamin d3) 58795935716 QIEUSER QIEUSER LEVOTHYROXINE SODIUM 112 MCG TABS null 06/19 levothyroxine 49093789858 QIEUSER QIEUSER IRON 325 (65 Fe) MG TABS Take 1 Tablet (325 mg) by mouth once daily with a meal. 06/19 FERROUS SULFATE QIEUSER QIEUSER VITAMIN B-12 1000 MCG TABS Take 1 Tablet (1,000 mcg) by mouth once daily. 06/19 cyanocobalamin (vitamin b-12) 48412070016 QIEUSER QIEUSER MULTIVITAMINS TABS Prescribed by Family PETE 06/19 MULTIPLE VITAMIN 56632110519 Kimmy Wooten VITAMIN D TABS Prescribed by Family PETE 06/19 CHOLECALCIFEROL TABS Kimmy Wooten SYNTHROID TABS Prescribed by Family PETE 06/19 LEVOTHYROXINE SODIUM TABS 00982965649 Kimmy Wooten Medications Administered No information available. Allergies, Adverse Reactions, Alerts Observed no known allergies at Results Date Name Value Unit Range Flag Description Internal Other: Authorizatio n - OBS AUTHORIZEDBY DONE nash knight authorization Office Visit SMOK STATUS Never smoker Toba account manager smoking status Internal Other: Authorizatio n PTSTAUTHDT DONE PT Jhoan beck Authorization Date Replaced Document: (P) CERUL OPLASMIN, VITAMIN B12, COPPER, METHYLMALONIC ACID METHYL MALON * nmol/L methylma lonic acid (MMA), serum COPPER SER * ug/mL copper, bl ood B-12 346 pg/mL 200-1100 N Cobalamin (V itamin B12) [Mass/volume] in Serum or Plasma CERULOPLASMI * mg/dL cerulopl asmin, serum Office Visit: Office Visit f ax MEDS REVIEW Done Documenta tion of current medications (procedure) Internal Other: Authorizatio n - OBS [email or web address] Yes Authoriza tion: Release of Information - Authorize [facility] - Payment and Healthcare Operations ROIAUTHOTHER Yes Authoriz ation: Release of Information - Authorize Others/Insurance - Payment and Healthcare Operations HIECONSENT Yes Consent To Release information to the Health Information Exchange (HIE) [email or web address] Yes Authorizat ion: Authorization for [facility] to leave messages, voicemail, send text messages, send emails AUTHRELHCARE Yes Authoriz ation: Release/Retrieval of Information to/from Healthcare Facilities, Pharmacy Benefit Payers and Providers AUTHPRIVPRAC Yes Authoriz ation: Notice of privacy practices AUTHBENEFIT Yes Authoriza tion: Assignment of Benefits and Payment Agreement Plan of Care Type Date Detail Pending order Obtain outside r ecords Pending order Obtain outside r ecords Pending order Obtain outside r ecords Pending Order exclud ed from report: Pending order Follow up with N eurologist or MARIO Pending order MRI-Brain W/WO M S Protocol Pending order MRI-Cervical W/W O MS Protocol Pending order Follow up MARIO af ter testing in clinic or telemedicine Pending order Follow up in cli thelma or telemedicine Pending order Methylmalonic Ac id Serum (MMA) Pending order Vitamin B12 Pending order EMG bilateral lo w ext Pending order EMG bilateral up per ext Pending order Methylmalonic Ac id Serum (MMA) Pending order Vitamin B12 Pending order Instructions for Staff Pending order Follow up in cli thelma or telemedicine Pending order MRI-Brain W/WO M S Protocol Pending order MRI-Cervical W/W O MS Protocol Pending order Ceruloplasmin Pending order Copper Pending order Vitamin B12 Pending order Methylmalonic Ac id Serum (MMA) Procedures Code Procedure Name Date Entry Date [facility]-[id number] Documentation of current medicatio ns ORDERS Obtain outside records 02/10 ORDERS Obtain outside records 02/10 ORDERS Follow up with Neurologist or MARIO [id number] MRI-Cervical W/WO MS Protocol [id number] MRI-Brain W/WO MS Protocol 2 CPT-46882 MRI Brain W/WO CPT-Y1358A ProHance Gadolinium- based MR Contrast - 15 ml vial CPT-47465 MRI Cervical W/WO CPT-Q8896J ProHance Gadolinium- based MR Contrast - 15 ml vial [facility]-[id number] Documentation of current medicatio ns ORDERS Follow up in clinic or telemedicine 11/27 ORDERS Methylmalonic Acid Serum (MMA) ORDERS Vitamin B12 ORDERS Follow up MARIO after testing in clinic or telemedicine CPT-28799 Nerve Conduction 13 or more studies 11/20 CPT-29676 EMG with NCS (5+ muscles) - 4 limbs 11/20 ORDERS EMG bilateral upper ext 2022 ORDERS EMG bilateral low ext 10/18 ORDERS Instructions for Staff 10/18 ORDERS Methylmalonic Acid Serum (MMA) ORDERS Vitamin B12 ORDERS Follow up in clinic or telemedicine 10/18 CPT-K2997B ProHance Gadolinium- based MR Contrast - 15 ml vial CPT-64237 MRI Cervical W/WO CPT-17137 MRI Brain W/WO CPT-D9795K ProHance Gadolinium- based MR Contrast - 15 ml vial [id number] MRI-Brain W/WO MS Protocol 2 [id number] MRI-Cervical W/WO MS Protocol ORDERS Copper [id number] Documentation of current medicatio ns ORDERS Ceruloplasmin ORDERS Vitamin B12 ORDERS Methylmalonic Acid Serum (MMA) N5185D ProHance Manan-based MR Contrast - 15 ml vi al CPT-74067 MRI Brain W/WO A9579 ProHance Manan-based MR Contrast, 15 ml via l CPT-26849 MRI Brain (With & Without Contrast) 02/13 Vital Signs Date Name Value Unit Description Height 68.5 [in_us] height E&M Weight Measured 150 [lb_av] weight E& M Weight Measured 150 [lb_av] weight E& M Heart Rate 78 /min pulse rate BMI (Body Mass Index) 23.16 kg/m2 Bod y Mass Index (Ratio) BP Diastolic 74 mm[Hg] blood pressu re, diastolic BP Systolic 113 mm[Hg] blood pressur e, systolic Immunizations No information available. Advance Directives No information available.
--- OUTSIDE RECORDS SUMMARY | 2025-02-04 17:03 | XMS_ITS | Encounter Summary ---
Author Organization [facility] Address [address] [place] [address] Care Team Providers Care Ocean Lifeguard Specialist Name Role Phone Vicente Avalos MD Unavailable [phone] Dahlia Colindres MD Unavailable [phone] Dahlia Colindres MD Unavailable [phone] Jerson Rodriguez MD Unavailable [phone] Angel James MD Unavailable [phone] Kell Harding MD Primary Care Provider + [phone] Loulou Cage Unavailable Unavailable Ky Talamantes MD Unavailable [phone] Kell Harding MD Unavailable [phone] Ky Talamantes MD Unavailable [phone] Jazz Linn MD Unavailable [phone] Margarette Montmeayor NP Unavailable [phone] Zina Og Unavailable Veda Diaz PA-C Unavailable [phone] Veda Diaz PA-C Unavailable [phone] Veda Diaz PA-C Unavailable + [phone] None Primary Care Provider Unavailabl e Tejal Jules MD Primary Care Provider [phone] Tejal Jules MD Unavailable [phone] Reason for Visit * Reason Onset Date Comments Call Back 09/06/2023 Feed back Encounter Details Date Type Department Care Team (Late st Contact Info) Description 09/06/2023 Telephone [facility] Endocrinology [address] [address] Jazz Linn MD [address] [place] [address] Call Back (Feed back) Social History Tobacco Use Types Packs/Day Years [...] on file Legal Sex Female 4:30 AM APPLICATION DEVELOPMENT CONSULTANT Gender Identity Not on file Sexual Orientation Not on file 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 Per pt would like if Corriecalls her back. Per pt has a few questions and some feed back. Please and thank you! Action Taken: Message routed to: [facility] ([facility]): ENDO Travel Screening: Not Applicable ICATION DEVELOPMENT CONSULTANT documented in this encounter Plan of Treatment Upcoming Encounters Date Type Department Care Team (Late st Contact Info) Description 02/05/2025 8:00 AM CDT Virtual Visit [facility] Physical Medicine and Rehabilitation Clinic [address] [place] [address] Dahlia Frost, PA-C [address] [place] [address] documented as of this encounter Visit Diagnoses Not on filedocumented in this encounter Additional Health Concerns Assessment Noted Time PHQ-9 Depression Total Score: 0 04/05/20 22 9:42 AM CDT documented as of this encounter Care Teams Ocean Lifeguard Specialist Relationship Specialty Start Date End Date Kell Harding MD [address] [place] [address] PCP - General Internal Medicine - Pediatrics 02/26/23 02/26/24 None PCP - General 02/27/24 03/10/24 Tejal Jules MD [address] [place] [address] PCP - General Family Medicine 03/11/24 Vicente Avalos MD [address] [place] [id number] Assigned Heart and Vascular Provider 03/03/22 08/14/24 Dahlia Colindres MD [address] [place] [address] Ophthalmology 12/28/22 06/10/24 Dahlia Colindres MD [address] [place] [address] Assigned Surgical Provider 01/12/23 07/14/24 Jerson Rodriguez MD [address] [facility] [address] [place] [id number] Internal Medicine 02/14/23 Angel James MD [address] [facility], [address]MD[address] [place] [address] Resident Internal Medicine - Pediatrics 02/14/23 Loulou Cage Personal Advocate & Liaison (PAL) 02/26/23 01/20/24 Ky Talamantes MD [address] [place], [place] [address] Neurology 03/04/23 Kell Harding MD [address] [facility] [place] [address] Assigned PCP 03/02/23 09/13/24 Ky Talamantes MD [address] [place], [place] [address] Assigned Neuroscience Provider 03/16/23 09/13/24 Jazz Linn MD [address] [place] [address] Assigned Endocrinology Provider 08/31/23 Margarette Montemayor NP Assigned Rheumatology Provider 10/17/23 11/14/23 Zina Og MBBS [address] [place] [address] Rheumatology 11/08/23 11/19/23 Veda Diaz PA-C [address] [place] [address] Physician Engineer Sergeant Rheumatology 11/20/23 Veda Diaz PA-C [address] [place] [address] Physician Engineer Sergeant Rheumatology 11/20/23 11/20/23 Veda Diaz PA-C [address] [place] [address] Assigned Rheumatology Provider 12/06/23 Tejal Jules MD [address] [address] Assigned PCP 09/14/24 documented as of this encounter
--- OUTSIDE RECORDS SUMMARY | 2025-02-04 17:03 | XMS_ITS | Encounter Summary ---
Author Organization [facility] Address [address] [place] [address] Care Team Providers Care Fruit Washer Name Role Phone Vicente Avalos MD Unavailable [phone] Dahlia Colindres MD Unavailable [phone] Dahlia Colindres MD Unavailable [phone] Jerson Rodriguez MD Unavailable [phone] Angel James MD Unavailable [phone] Kell Harding MD Primary Care Provider [phone] Loulou Cage Unavailable Unavailable Ky Talamantes MD Unavailable [phone] Kell Harding MD Unavailable [phone] Ky Talamantes MD Unavailable [phone] Jazz Linn MD Unavailable [phone] Veda iDaz PA-C Unavailable [phone] Veda Diaz PA-C Unavailable [phone] Veda Diaz PA-C Unavailable [phone] None Primary Care Provider UnavailTejal Swift MD Primary Care Provider Tejal Jules MD Unavailable [phone] Encounter Details Date Type Department Care Team (Late st Contact Info) Description 11/20/2023 MyC Medical Advice Adult Call Center [address] [place] [address] Monica Sarabia, GAS MANAGER Social History Tobacco Use Types Packs/Day Years [...] on file Legal Sex Female 4:30 AM CHIEF DIVERSITY OFFICER Gender Identity Not on file Sexual Orientation Not on file 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 file Not on f ile documented as of this encounter Plan of Treatment Upcoming Encounters Date Type Department Care Team (Late st Contact Info) Description 02/05/2025 8:00 AM CDT Virtual Visit [facility] Physical Medicine and Rehabilitation Clinic [address] [address] Dahlia Frost, PA-C [address] [place] [address] documented as of this encounter Visit Diagnoses Not on filedocumented in this encounter Additional Health Concerns Assessment Noted Time PHQ-9 Depression Total Score: 0 04/05/20 22 9:42 AM CDT documented as of this encounter Care Teams Fruit Washer Relationship Specialty Start Date End Date Kell Harding MD [address] [facility] [place] [address] PCP - General Internal Medicine - Pediatrics 02/26/23 02/26/24 None PCP - General 02/27/24 03/10/24 Tejal Jules MD [address] [place] [address] PCP - General Family Medicine 03/11/24 Vicente Avalos MD [address] [place] [address] Assigned Heart and Vascular Provider 03/03/22 08/14/24 Dahlia Colindres MD [address] [place] [address] Ophthalmology 12/28/22 06/10/24 Dahlia Colindres MD [address] [place], [place] [address] Assigned Surgical Provider 01/12/23 07/14/24 Jerson Rodriguez MD [address] [place] [address] [place] [id number] Internal Medicine 02/14/23 Angel James MD [address] [place] [address], MBN842 [place], [place] [address]858[address] Resident Internal Medicine - Pediatrics 02/14/23 Loulou Cage Personal Advocate & Liaison (PAL) 02/26/23 01/20/24 Ky Talamantes MD [address] [place] [address] Neurology 03/04/23 Kell Harding MD [address] [facility] [place] [address] Assigned PCP 03/02/23 09/13/24 Ky Talamantes MD [address] [place] [address] Assigned Neuroscience Provider 03/16/23 09/13/24 Jazz Linn MD [address] [place] [address] Assigned Endocrinology Provider 08/31/23 Veda Diaz PA-C [address] [place] [address] Physician Demographic Analyst Rheumatology 11/20/23 Veda Diaz PA-C [address] [place] [address] Physician Demographic Analyst Rheumatology 11/20/23 11/20/23 Veda Diaz PA-C [address] [place] [address] Assigned Rheumatology Provider 12/06/23 Tejal Jules MD [address] [facility] [address] [place] [address] Assigned PCP 09/14/24 documented as of this encounter
--- OUTSIDE RECORDS SUMMARY | 2025-02-04 17:03 | XMS_ITS | Encounter Summary ---
Author Organization [facility] Address [address] [place] [address] Care Team Providers Care Costume Mistress Name Role Phone Steff Hurtado DNP, COPY CAMERA OPERATOR, SUIT MAKER Primary Care Pro vider Encounter Details Date Type Department Care Team (Latest Contact Info) Description 08/15/1998 Orders Only Mishel Diop Social History Tobacco Use Types Packs/Day Years Used Date Smoking Tobacco: Never Assessed Comments Unknown Sex and Gender Information Value Date Recorded Sex Assigned at Not on file Legal Sex Female 5:00 AM CDT Gender Identity Not on file Sexual Orientation Not on file documented as of this encounter Plan of Treatment Not on file documented as of this encounter Visit Diagnoses Not on filedocumented in this encounter Additional Health Concerns Infection Onset Date Last Indicated Resolved Time R/O COVID19 10/03/2023 10/03/2023 10/04/2023 12:2 7 AM EMPLOYMENT MANAGER documented as of this encounter Care Teams Costume Mistress Relationship Specialty Start Date End Date Steff Hurtado DNP, COPY CAMERA OPERATOR, SUIT MAKER [address] [place] [address] PCP - General Nurse Practitioner 06/15/23 documented as of this encounter
--- OUTSIDE RECORDS SUMMARY | 2025-02-04 17:03 | XMS_ITS | Encounter Summary ---
Author Organization [facility] Address [address] [place] [address] Care Team Providers Care Cp Bleacher Operator Name Role Phone Vicente Avalos MD Unavailable [phone] Kory Garcia MD Unavailable [phone] Dahlia Colindres MD Unavailable [phone] Dahlia Colindres MD Unavailable [phone] Jerson Rodriguez MD Unavailable +[phone] Angel James MD Unavailable [phone] Kell Harding MD Primary Care Provider + [phone] Loulou Cage Unavailable Unavailable Ky Talamantes MD Unavailable Kell Harding MD Unavailable [phone] Ky Talamantes MD Unavailable [phone] Jazz Linn MD Unavailable [phone] Margarette Montemayor NP Unavailable +[phone] Zina Og Unavailable Veda Diaz PA-C Unavailable Veda Diaz PA-C Unavailable Veda DiazC Unavailable + [phone] None Primary Care Provider Unavailritesh e Tejal Jules MD Primary Care Provider + [phone] Tejal Jules MD Unavailable +[phone] Encounter Details Date Type Department Care Team (Late st Contact Info) Description 02/26/2023 MyC Medical Advice [facility] [address] [facility] [address] [place] [address] Kell Harding MD [address]305 [facility] [place] [address] Social History Tobacco Use Types Packs/Day Years [...] on file Legal Sex Female 4:30 AM PIT BOSS Gender Identity Not on file Sexual Orientation Not on file 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 No / Unsure 03/01/2023 4:11 PM CDT documented as of this encounter Plan of Treatment Upcoming Encounters Date Type Department Care Team (Late st Contact Info) Description 02/05/2025 8:00 AM CDT Virtual Visit [facility] [address] 3rd [place] [address] Dahlia Frost, PA-C [address] [place] [address] documented as of this encounter Visit Diagnoses Not on filedocumented in this encounter Additional Health Concerns Assessment Noted Time PHQ-9 Depression Total Score: 0 04/05/20 9:42 AM CDT documented as of this encounter Care Teams Cp Bleacher Operator Relationship Specialty Start Date End Date Kell Harding MD [address]305 [place] [address] PCP - General Internal Medicine - Pediatrics 02/26/23 02/26/24 None PCP - General 02/27/24 03/10/24 Tejal Jules MD [address] [place] [address] PCP - General Family Medicine 03/11/24 Vicente Avalos MD [address] [facility] [address] [place] [address] Assigned Heart and Vascular Provider 03/03/22 08/14/24 Kory Garcia MD [address] [place] [address] Assigned PCP 07/14/22 03/01/23 Dahlia Colindres MD [address] [place] [address] Ophthalmology 12/28/22 06/10/24 Dahlia Colindres MD [address] [place] [address] Assigned Surgical Provider 01/12/23 07/14/24 Jerson Rodriguez MD [address] [facility] [address] [place] [id number] Internal Medicine 02/14/23 Angel James MD 420 [facility], [address]525 [place], [place] [address] Resident Internal Medicine - Pediatrics 02/14/23 Loulou Cage Personal Advocate & Liaison (PAL) 02/26/23 01/20/24 Ky Talamantes MD [address] [place] [address] Neurology 03/04/23 [place] [address] [place] [address] [place] [address] Assigned PCP 03/02/23 09/13/24 Ky Talamantes MD [address] [place] [address] Assigned Neuroscience Provider 03/16/23 09/13/24 Jazz Linn MD 909 [place] [address] Assigned Endocrinology Provider 08/31/23 Margarette Montemayor NP Assigned Rheumatology Provider 10/17/23 11/14/23 Zina Og MBBS 2945 [place] [address] Rheumatology 11/08/23 11/19/23 Veda Diaz PA-C [address] [place] [address] Physician Sport Shoe Spike Assembler Rheumatology 11/20/23 Veda Diaz PA-C [address] [place] [address] Physician Sport Shoe Spike Assembler Rheumatology 11/20/23 11/20/23 Veda Diaz PA-C [address] [place] [address] Assigned Rheumatology Provider 12/06/23 Tejal Jules MD [address] [address] Assigned PCP 09/14/24 documented as of this encounter
--- OUTSIDE RECORDS SUMMARY | 2025-02-04 17:04 | XMS_ITS | Encounter Summary ---
Author Organization [facility] Address [address] [place] [address] Care Team Providers Care Retinal Surgeon Name Role Phone No Ref-Primary, Physician Primary Care Provider Vicente Avalos MD Unavailable [phone] Gianna Pierre PA-C Unavailable Kory Garcia MD Unavailable Dahlia Colindres MD Unavailable [phone] Dahlia Colindres MD Unavailable [phone] Jerson Rodriguez MD Unavailable +[phone] Angel James MD Unavailable [phone] Angel James MD Unavailable [phone] Kell Harding MD Primary Care Provider + [phone] Loulou Cage Unavailable Unavailable Ky Talamantes MD Unavailable [phone] Kell Harding MD Unavailable [phone] Ky Talamantes MD Unavailable [phone] Jazz Linn MD Unavailable [phone] Margarette Montemayor NP Unavailable +[phone] Zina Og Unavailable Veda Diaz PA-C Unavailable Veda Diaz PA-C Unavailable Veda Diaz PA-C Unavailable None Primary Care Provider UnavailTejal Swift MD Primary Care Provider Tejal Jules MD Unavailable Encounter Details Date Type Department Care Team (Late Contact Info) Description 04/17/2022 MyC Medical Advice [facility] [address] [facility] [address] [place] [address] Vicente Avalos MD [address]00 [facility] [address] [place], [place] [address] Social History Tobacco Use Types Packs/Day Years Used Date Smoking Tobacco: Never Smokeless Tobacco: Never Alcohol Use Standard Drinks/Week Comments Yes 0 (1 standard drink = 0.6 oz pur e alcohol) rare PHQ-2 Answer Date Recorded PHQ-2 Score 0 04/05/2022 Comments No Sex and Gender Information Value Date Recorded Sex Assigned at Not on file 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 No / Unsure 04/06/2022 12:29 PM CDT documented as of this encounter Plan of Treatment Upcoming Encounters Date Type Department Care Team (Late Contact Info) Description 02/05/2025 8:00 AM CDT Virtual Visit [facility] [address] 3rd [place] [address] Dahlia Frost, PA-C [address] [place] [address] documented as of this encounter Visit Diagnoses Not on filedocumented in this encounter Additional Health Concerns Assessment Noted Time PHQ-9 Depression Total Score: 0 04/05/20 22 9:42 AM CDT documented as of this encounter Care Teams Retinal Surgeon Relationship Specialty Start Date End Date No Ref-Primary, Physician PCP - General 03/02/22 02/25/23 Kell Harding MD 3305 [place] [address] PCP - General Internal Medicine - Pediatrics 02/26/23 02/26/24 None PCP - General 02/27/24 03/10/24 Tejal Jules MD [address] [facility] 100 [place] [address] PCP - General Family Medicine 03/11/24 Vicente Avalos MD 6[address] [facility] [address] [place] [address] Assigned Heart and Vascular Provider 03/03/22 08/14/24 Gianna Pierre PA-C [address] [place] [address] Assigned PCP 04/14/22 07/13/22 Kory Garcia MD [address] [place], [place] [address] Assigned PCP 07/14/22 03/01/23 Dahlia Colindres MD [address] [place], [place] [address] Ophthalmology 12/28/22 06/10/24 Dahlia Colindres MD [address] [place] [address] Assigned Surgical Provider 01/12/23 07/14/24 Jerson Rodriguez MD [address] [place] [address] [place] [id number] Internal Medicine 02/14/23 Angel James MD [address] [place] [address] Resident Internal Medicine - Pediatrics 02/14/23 02/14/23 Angel James MD [address] [place] [id number] Resident Internal Medicine - Pediatrics 02/14/23 Loulou Cage Personal Advocate & Liaison (PAL) 02/26/23 01/20/24 Ky Talamantes MD [address] [place], [place] [phone] Neurology 03/04/23 Kell Harding MD [address] [place] [address] [place] [address] Assigned PCP 03/02/23 09/13/24 Ky Talamantes MD [address] [place] [id number] Assigned Neuroscience Provider 03/16/23 09/13/24 Jazz Linn MD [address] [place] [address] Assigned Endocrinology Provider 08/31/23 Margarette Montemayor NP Assigned Rheumatology Provider 10/17/23 11/14/23 Zina Og MBBS 2945 [place] [address] Rheumatology 11/08/23 11/19/23 Veda Diaz PA-C [address] [place] [address] Physician Secure Software Assessor Rheumatology 11/20/23 Veda Diaz PA-C [address] [place] [address] Physician Secure Software Assessor Rheumatology 11/20/23 11/20/23 Veda Diaz PA-C 5200 [place] [address] Assigned Rheumatology Provider 12/06/23 Tejal Jules MD [address] [address] Assigned PCP 09/14/24 documented as of this encounter
--- OUTSIDE RECORDS SUMMARY | 2025-02-04 17:04 | XMS_ITS | Encounter Summary ---
Author Organization [facility] Address [address] [place] [address] Care Team Providers Care New Car Salesperson Name Role Phone Vicente Avalos MD Unavailable [phone] Dahlai Colindres MD Unavailable [phone] Dahlia Colindres MD Unavailable [phone] Jerson Rodriguez MD Unavailable [phone] Angel James MD Unavailable [phone] Kell Harding MD Primary Care Provider + [phone] Loulou Cage Unavailable Unavailable Ky Talamantes MD Unavailable [phone] Kell Harding MD Unavailable [phone] Ky Talamantes MD Unavailable [phone] Jazz Linn MD Unavailable [phone] Veda Diaz PA-C Unavailable [phone] Veda Diaz PA-C Unavailable + [phone] None Primary Care Provider Unavailritesh e Tejal Jules MD Primary Care Provider + [phone] Tejal Jules MD Unavailable +[phone] Encounter Details Date Type Department Care Team (Late st Contact Info) Description 01/07/2024 MyC Medical Advice [facility] [address] [facility] [address] [place] [phone] Loulou Cage Social History Tobacco Use Types Packs/Day Years [...] on file 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 Gender Identity Not on file Sexual Orientation Not on file 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 Not on file Not on f ile documented as of this encounter Plan of Treatment Upcoming Encounters Date Type Department Care Team (Late st Contact Info) Description 02/05/2025 8:00 AM CDT Virtual Visit [facility] [address] [address] Dahlia Frost PA-C [address] [place] [address] documented as of this encounter Visit Diagnoses Not on filedocumented in this encounter Additional Health Concerns Assessment Noted Time PHQ-9 Depression Total Score: 0 04/05/20 22 9:42 AM CDT documented as of this encounter Care Teams New Car Salesperson Relationship Specialty Start Date End Date Kell Harding MD [address] [place] [address] [place] [address] PCP - General Internal Medicine - Pediatrics 02/26/23 02/26/24 None PCP - General 02/27/24 03/10/24 Tejal Jules MD [address] [place] [address] PCP - General Family Medicine 03/11/24 Vicente Avalos MD [address] [place] [address] Assigned Heart and Vascular Provider 03/03/22 08/14/24 Dahlia Colindres MD [address] [place] [id number] Ophthalmology 12/28/22 06/10/24 Dahlia Colindres MD [address] [place], [place] [address] Assigned Surgical Provider 01/12/23 07/14/24 Jerson Rodriguez MD [address] [place] [address] [place] [address] Internal Medicine 02/14/23 Angel James MD [address] [place] [address], O[address]022 [place], [place] [address] Resident Internal Medicine - Pediatrics 02/14/23 Loulou Cage Personal Advocate & Liaison (PAL) 02/26/23 01/20/24 Ky Talamantes MD [address] [place] [id number] Neurology 03/04/23 Kell Harding MD [address] [place] [address] Assigned PCP 03/02/23 09/13/24 Ky Talamantes MD [address] [place] [address] Assigned Neuroscience Provider 03/16/23 09/13/24 Jazz Linn MD 909 [place] [phone] Assigned Endocrinology Provider 08/31/23 Veda Diaz PA-C 5200 [place] [address] Physician Cp Bleacher Operator Rheumatology 11/20/23 Veda Diaz PA-C 5200 [place] [address] Assigned Rheumatology Provider 12/06/23 Tejal Jules MD [address] [facility] 100 [place] [address] Assigned PCP 09/14/24 documented as of this encounter
--- OUTSIDE RECORDS SUMMARY | 2025-02-04 17:04 | XMS_ITS | Encounter Summary ---
Author Organization [facility] Address [address] [place] [address] Care Team Providers Care Us Marketing Director Name Role Phone No Ref-Primary, Physician Primary Care Provider Vicente Avalos MD Unavailable [phone] Gianna Pierre PA-C Unavailable Kory Garcia MD Unavailable Dahlia Colindres MD Unavailable [phone] Dahlia Colindres MD Unavailable [phone] Jerson Rodriguez MD Unavailable [phone] Angel James MD Unavailable [phone] Angel James MD Unavailable [phone] Kell Harding MD Primary Care Provider + [phone] Loulou Cage Unavailable Unavailable Ky Talamantes MD Unavailable [phone] Kell Harding MD Unavailable [phone] Ky Talamantes MD Unavailable [phone] Jazz Linn MD Unavailable [phone] Margarette Montemayor NP Unavailable +[phone] Zina Og Unavailable Veda Diaz PA-C Unavailable Veda Diaz PA-C Unavailable [phone] Veda Diaz PA-C Unavailable None Primary Care Provider UnavailTejal Swift MD Primary Care Provider + [phone] Tejal Jules MD Unavailable [phone] Encounter Details Date Type Department Care Team (Late Contact Info) Description 04/25/2022 MyC Medical Advice Initial Department [facility] Social History Tobacco Use Types Packs/Day Years Used Date Smoking Tobacco: Never Smokeless Tobacco: Never Alcohol Use Standard Drinks/Week Comments Yes 0 (1 standard drink = 0.6 oz pur e alcohol) rare PHQ-2 Answer Date Recorded PHQ-2 Score 0 04/26/2022 Comments No Sex and Gender Information Value Date Recorded Sex Assigned at Not on file 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 No / Unsure 04/26/2022 1:54 PM CDT documented as of this encounter Plan of Treatment Upcoming Encounters Date Type Department Care Team (Late Contact Info) Description 02/05/2025 8:00 AM CDT Virtual Visit [facility] Physical Medicine and Rehabilitation Clinic [address] [place] [address] Dahlia Frost PA-C [address] [place] [address] documented as of this encounter Visit Diagnoses Not on filedocumented in this encounter Additional Health Concerns Assessment Noted Time PHQ-9 Depression Total Score: 0 04/05/20 22 9:42 AM CDT documented as of this encounter Care Teams Us Marketing Director Relationship Specialty Start Date End Date No Ref-Primary, Physician PCP - General 03/02/22 02/25/23 Kell Harding MD [address] [place] [address] PCP - General Internal Medicine - Pediatrics 02/26/23 02/26/24 None PCP - General 02/27/24 03/10/24 Tejal Jules MD [address] [place], [place] [address] PCP - General Family Medicine 03/11/24 Vicente Avalos MD 6405 [facility] [address] [place] [address] Assigned Heart and Vascular Provider 03/03/22 08/14/24 Gianna Pierre PA-C [address] [place], [place] [address] Assigned PCP 04/14/22 07/13/22 Kory Garcia MD [address] [place], [place] [address] Assigned PCP 07/14/22 03/01/23 Dahlia Colindres MD [address] [place], [place] [address] Ophthalmology 12/28/22 06/10/24 Dahlia Colindres MD [address] [place] [address] Assigned Surgical Provider 01/12/23 07/14/24 Jerson Rodriguez MD [address] [place] [address] [place] [id number] Internal Medicine 02/14/23 Angel James MD [address] [place] [address], [place] [id number] Resident Internal Medicine - Pediatrics 02/14/23 02/14/23 Angel James MD [address] [place] [address], [place] [id number] Resident Internal Medicine - Pediatrics 02/14/23 Loulou Cage Personal Advocate & Liaison (PAL) 02/26/23 01/20/24 Ky Talamantes MD [address] [place], [place] [phone] Neurology 03/04/23 Kell Harding MD [address] [place] [address] [place] TRIVEDI [address] Assigned PCP 03/02/23 09/13/24 Ky Talamantes MD [address] [place] [address] Assigned Neuroscience Provider 03/16/23 09/13/24 Jazz Linn MD [address] [place] [address] Assigned Endocrinology Provider 08/31/23 Margarette Montemayor NP Assigned Rheumatology Provider 10/17/23 11/14/23 Zina Og MBBS 2945 [place] [address] Rheumatology 11/08/23 11/19/23 Veda Diaz PA-C 5200 [place] [address] Physician Hospitalist Medical Director Rheumatology 11/20/23 Veda Diaz PA-C 5[address] [place] [address] Physician Hospitalist Medical Director Rheumatology 11/20/23 11/20/23 Veda Diaz PA-C [address] [place] [address] Assigned Rheumatology Provider 12/06/23 Tejal Jules MD [address] [address] Assigned PCP 09/14/24 documented as of this encounter
--- OUTSIDE RECORDS SUMMARY | 2025-02-04 17:04 | XMS_ITS | Encounter Summary ---
Author Organization [place] Address [address] [place] [address] Care Team Providers Care Environmental Engineering Assistant Name Role Phone Vicente Avalos MD Unavailable [phone] Dahlia Colindres MD Unavailable [phone] Dahlia Colindres MD Unavailable [phone] Jerson Rodriguez MD Unavailable +[phone] Angel James MD Unavailable [phone] Kell Harding MD Primary Care Provider + [phone] Loulou Cage Unavailable Unavailable Ky Talamantes MD Unavailable [phone] Kell Harding MD Unavailable [phone] Ky Talamantes MD Unavailable [phone] Jazz Linn MD Unavailable [phone] Veda Diaz PA-C Unavailable [phone] Veda Diaz PA-C Unavailable + [phone] None Primary Care Provider Unavailritesh e Tejal Jules MD Primary Care Provider + [phone] Tejal Jules MD Unavailable +[phone] Encounter Details Date Type Department Care Team (Late st Contact Info) Description 11/28/2023 MyC Medical Advice [facility] Insurance Verification Lupis Alves Social History Tobacco Use Types Packs/Day Years [...] on file 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 Gender Identity Not on file Sexual Orientation Not on file 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 Not on file Not on f ile documented as of this encounter Plan of Treatment Upcoming Encounters Date Type Department Care Team (Late st Contact Info) Description 02/05/2025 8:00 AM CDT Virtual Visit [facility] Physical Medicine and Rehabilitation Clinic [address] [phone] Dahlia Frost PAYolis [address] [place] [address] documented as of this encounter Visit Diagnoses Not on filedocumented in this encounter Additional Health Concerns Assessment Noted Time PHQ-9 Depression Total Score: 0 04/05/20 22 9:42 AM CDT documented as of this encounter Care Teams Environmental Engineering Assistant Relationship Specialty Start Date End Date Kell Harding MD [address] [place] [address] PCP - General Internal Medicine - Pediatrics 02/26/23 02/26/24 None PCP - General 02/27/24 03/10/24 Tejal Jules MD [address] [place] [address] PCP - General Family Medicine 03/11/24 Vicente Avalos MD [address] [place], [place] [address] Assigned Heart and Vascular Provider 03/03/22 08/14/24 Dahlia Colindres MD [address] [place] [address] Ophthalmology 12/28/22 06/10/24 Dahlia Colindres MD [address] [place], [place] [address] Assigned Surgical Provider 01/12/23 07/14/24 Jerson Rodriguez MD [address] [place] [address] [place] [id number] Internal Medicine 02/14/23 Angel James MD [address] [place] [address], [id number] [place] [address] Resident Internal Medicine - Pediatrics 02/14/23 Loulou Cage Personal Advocate & Liaison (PAL) 02/26/23 01/20/24 Ky Talamantes MD [address] [place] [address] Neurology 03/04/23 Kell Harding MD [address] [place] [address] Assigned PCP 03/02/23 09/13/24 Ky Talamantes MD [address] [place] [address] Assigned Neuroscience Provider 03/16/23 09/13/24 Jazz Linn MD 909 [place] [address] Assigned Endocrinology Provider 08/31/23 Veda Diaz PA-C [address] [place] [address] Physician Pasteurizing Supervisor Rheumatology 11/20/23 Veda Diaz PA-C [address] [place] [address] Assigned Rheumatology Provider 12/06/23 Tejal Jules MD [address] [place] [address] [place] [address] Assigned PCP 09/14/24 documented as of this encounter
--- OUTSIDE RECORDS SUMMARY | 2025-02-04 17:04 | XMS_ITS | Clinical Summary ---
Author Organization [facility] Address [address] [place] [address] Care Team Providers Care Construction Secretary Name Role Phone Phyllis Temple Unavailable [phone] Pcp, No Primary Care Provider Unavailabl e Allergies No known active allergies Medications Unithroid 125 mcg tabletIndication s:Hypothyroidism , unspecified type Take 1 Tablet (125 mcg) by mouth once daily. 90 Tablet 4 10/05/2024 Active Active Problems Problem Noted Date Diagnosed Date Palpitations 12/31/2023 Tachycardia 12/31/2023 Pap smear for cervical cancer screening 06/26/20 Overview (06/26/2022): 04/2022 NIL/HPV Negative Plan: Pap and HPV 04/2027 Periorbital hyperpigmentation 05/22/2022 Asthenopia 05/22/2022 Presbyopia 05/22/2022 Regular astigmatism, bilateral 05/22/2022 Hyperopia, bilateral 05/22/2022 Vision changes 05/22/2022 Intestinal malabsorption 07/10/2017 Second degree hemorrhoids 07/03/2017 Steatorrhea 07/01/2017 Disease of esophagus, unspecified 03/05/2017 Encounter for screening colonoscopy 03/05/2017 Other hemorrhoids 03/05/2017 Polyp of colon 03/05/2017 Dysphagia 12/10/2016 Rectal bleeding 12/10/2016 Anxiety state 08/11/2003 Overview (02/22/2022): Problem list name updated by automated process. Provider to review Depressive disorder, not elsewhere classified Hypothyroidism 08/11/2003 Overview (02/22/2022): Problem list name updated by automated process. Provider to review Other acne 08/11/2003 Encounters Date Type Department Care Team Description 02/03/2025 Telephone [facility] [address] [place] [phone] Jadon Kwok MD Care Coordination 02/02/2025 Telephone [facility] [address] [place] [address] Uli Connor MD 01/28/2025 8:30 AM CDT - 01/28/2025 11:59 PM CDT Hospital Encounter [facility] [address] [place] [address] Uli Connor MD SOB (shortness of breath) 01/27/2025 9:00 AM CDT Orders Only [facility] [address] [place] [address] Lab 01/27/2025 Travel 01/18/2025 4:00 PM CDT Office Visit [facility] [address] [place] [address] Uli Connor MD Consult (hyperinflation lung consultation) 01/17/2025 Travel 01/13/2025 11:20 AM CDT Orders Only [facility] [address] [place] [address] Lab 01/12/2025 Travel 01/12/2025 Telephone [facility] [address] [place] [phone] Ruth Aquino, HEATHER Questions (blood sugar numbers) 12/30/2024 Orders Only [facility] Staff, Other Clinical 1 scan: (1-Ord) COMPREHENSIVE PROFILE-STOOL, 12/30/2024 12/25/2024 9:00 AM CDT Orders [place] [facility] [address] [place] [address] Lab, Farm Lab 12/25/2024 Travel 12/23/[address] [place] [address] Ruth Aquino, HEATHER [facility] Effects test kit ordered 12/18/2024 8:00 AM CDT Office Visit [address] [place] [address] Ruth Aquino, HEATHER Consult (Discuss thyroid management and women's health ) 12/17/2024 Travel 11/27/2024 8:40 AM PARKING ENFORCEMENT OFFICER Orders Only [facility] [address] [facility] [address] [place] [address] Lab 11/27/2024 Travel from Last 3 Months Immunizations Immunization Administration Dates Next Due DTP 04/27/1980, 6,01/13/1975,1974,1974 Hepatitis A (Adult) 07/01/2006,12/11/2005 Hepatitis A, Unspecified 07/01/2006,12/11/2005 Hepatitis B (Adult) 03/22/2004,09/10/2003,2002 Hepatitis B, Unspecified 03/22/2004,09/10/2003,1 10/11/2002 Influenza A (H1N1), Inactivated 09/21/2009 Influenza Virus, Unspecified 06/23/2009 Influenza, IIV3 (Age >=3 years) 06/23/2009 MMR 02/01/1992,09/07/1975 Oral Polio Vaccine 03/02/1976, 5,1974,1974 Td (Age >=7 Years) 08/11/2003,07/08/1989, 989 Td, Preservative Free (age > = 7 Years) 08/11/2003,07/08/1989 Tdap 11/25/2013 Family History Medical History Relation Name Comments Asthma Father Gene Adult onset/discovery Cancer Father Gene Cancer-colon Father Gene Polyps in famil y before 50 Cancer-prostate Father Gene Coronary artery disease Father Gene Mitr al valve / rheumatic fever Heart failure Father Gene Congestive hea rt Hypertension Father Gene Possibly both parents, unsure Rheum arthritis Father Gene Adult onset Stroke Father Gene Unknown Maternal Aunt 1 Natalie Leukemia Unknown Maternal Aunt 2 Many aunts and uncles had cancer Cancer-breast Maternal Aunt 3 Nkechi Diagnosed i n early 40 s Thyroid Disease Maternal Grandfather Trice Unknown Maternal Uncle Lyle Lymphoma Allergies Mother Eloise Shellfish, hayf ever Cancer Mother Eloise Osteoarthritis Mother Eloise Possiblt both parents, unsure Thyroid Disease Mother Eloise Unknown Mother Eloise Gallbladder can cer Cancer-colon Paternal Grandfather Not sure wh ich grandparent Unknown Sister 7 Ruth Mult myeloma Allergies Sister 8 Caridad Dust Heart failure Sister 9 Gracie Aortic valve replacement, congenital tricuspid Allergies Son 2 Stephen Ammox Asthma Son 2 Stephen Childhood mild asthma Relation Name Status Comments Brother Alive Daughter Alive Father Gene Maternal Aunt 1 Natalie Alive Maternal Aunt 2 Many aunts and uncles had cancer Alive Maternal Aunt 3 Nkechi Alive Maternal Grandfather Trice Alive Maternal Grandmother Maternal Uncle Lyle Alive Mother Eloise Paternal Grandfather Not sure which grandparent Alive Paternal Grandmother Sister 1 Alive Sister 2 Alive Sister 3 Alive Sister 4 Alive Sister 5 Alive Sister 6 Alive Sister 7 Ruth Alive Sister 8 Caridad Alive Sister 9 Gracie Alive Son 1 Alive Son 2 Stephen Alive Social History Tobacco Use Types Packs/Day Years Used Date Smoking Tobacco: Never Smokeless Tobacco: Never Tobacco Cessation:Counseling Given: No Alcohol Use Standard Drinks/Week Comments Not Currently 0 (1 standard drink = 0.6 oz pur e alcohol) PHQ-2 Answer Date Recorded PHQ-2 TOTAL SCORE 0 07/04/2023 Social Connections Answer Date Recorded Do you often feel lonely or isolated from those around you? 0 12/17/2024 Financial Resource Strain Answer Date R ecorded Difficulty of Paying Living Expenses 2 12/17/2024 Difficulty of Paying Living Expenses 1 12/17/2024 Food Insecurity Answer Date Recorded Do you worry your food will run out before you are able to buy more? 1 12/17/2024 Transportation Needs Answer Date Record ed Does lack of transportation keep you from medica l appointments? 1 12/17/2024 Does lack of transportation keep you from work, meetings or getting things that you need? 1 12/17/2024 Housing Stability Answer Date Recorded What is your housing situation today? 1 12/17/2024 Utilities Answer Date Recorded Do you have trouble paying f or utilities (for example, heat, electricity, water, phone)? 1 12/17/2024 Comments No Sex and Gender Information Value Date Recorded Sex Assigned at Not on file Legal Sex Female 6:22 AM PARKING ENFORCEMENT OFFICER Gender Identity Not on file Sexual Orientation Not on file Obstetrics History Para Term AB IAB SAB Ectopic Multiple Livin g Live Births 7 0 0 0 5 0 5 0 0 2 2 Date Outcome GA Total Labor Labor/2nd/3rd Weight Sex Type Anes PTL Jes A1 A5 Name Clin SAB SAB Living Living SAB SAB SAB Last Filed Vital Signs Vital Sign Reading Time Taken Comments Blood Pressure 128/72 01/18/2025 4:06 PM CDT Pulse 86 01/18/2025 4:06 PM CDT Temperature 36.4 C (97.5 F) 11/18/2023 6:20 PM PARKING ENFORCEMENT OFFICER Respiratory Rate 14 01/30/2024 7:45 AM CDT Oxygen Saturation 100% 01/18/2025 4:06 PM CDT Inhaled Oxygen Concentration - - Weight 69.2 kg (152 lb 8 oz) 01/18/2025 4:06 PM CDT Height 171.5 cm (5' 7.5) 01/18/2025 4:06 PM CDT Body Mass Index 23.53 01/18/2025 4:06 PM CDT Plan of Treatment Upcoming Encounters Date Type Department Care Team (Late st Contact Info) Description 03/04/2025 8:30 AM CDT Telemedicine [address] [place] [phone] Ruth Aquino NP [address] [place] [phone] 06/14/2025 11:15 AM CDT Telemedicine [facility] [address] [place] [phone] Loreta Marin, HEATHER [address] [place] [address] 11/08/2025 8:00 AM PARKING ENFORCEMENT OFFICER Office [facility] [address] [place] [address] Gretta Caicedo PA [address] [place] [address] 11/25/2025 9:00 AM PARKING ENFORCEMENT OFFICER Office Visit [facility] [address] [facility] [phone] Genoveva Renee, HEATHER [address] [place], [place] [address] Health Maintenance Due Date Last Done Comments Depression screening for age 12+ 1986 Tetanus booster 11/26/2023 11/25/2013, 07/24, 08/11/2003, Additional history exists COVID-19 vaccine series ( - 2023- season) 2024 Mammogram for age 45-75 07/09/2024 07/09/20 23, 04/13/2022, 07/13/2016 Pneumococcal series for age 50+ (1 of 1 - PCV) 2024 Zoster (shingles) series for age 50+ (1 of 2) 2024 Influenza Vaccine (Season Ended) 2025 06/23/20 09, 06/23/2009 BMI (ht and wt on same day) for age 18+ 01/18/2026 01/18/2025, 01/30/2024, 12/31/2023, Additional history exists Colonoscopy through age 75 03/05/2027 03/05/2017 Lipids for age 45-75 04/16/2027 04/16/2022 Pap test for age 21-65 04/24/2027 2, 04/24/2022, 07/13/2016 Tdap Completed 11/25/2013 HIV for age 15-65 Completed 11/28/2016 Hepatitis C screening for ag e 18-79 Completed 11/28/2016 Procedures Procedure Name Priority Date/Time Associated Diagnosis Comments COMPLETE PULMONARY FUNCTION TEST WITH BRONCHODILATOR Routine 01/28/2025 9:00 AM CDT SOB (shortness of breath) HEMOGLOBIN Today 01/28/2025 8:49 AM CDT TSH Routine 01/27/2025 8:58 AM CDT Hypothyroidism, unspecified type INSULIN Routine 01/13/2025 11:22 AM CDT Elevated blood sugar HEMOGLOBIN A1C Routine 01/13/2025 11:22 AM CDT Elevated blood sugar COMP METABOLIC PANEL Routine 01/13/2025 11:22 AM CDT Elevated blood sugar SCAN-DIAGNOSTIC REPORT 12:00 AM CDT TSH Routine 12/25/2024 9:07 AM CDT Hypothyroidism, unspecified type VITAMIN D 25 (DEFICIENCY) Routine 12/25/2024 9:07 AM CDT Vitamin D deficiency Other malaise FERRITIN Routine 12/25/2024 9:07 AM CDT Other malaise IRON PLUS IRON BINDING CAP Routine 12/25/2024 9:07 AM CDT Other malaise VITAMIN B12 Routine 12/25/2024 9:07 AM CDT Other malaise T4,FREE Routine 12/25/2024 9:07 AM CDT Yusuf's thyroiditis T3,FREE Routine 12/25/2024 9:07 AM CDT Yusuf's thyroiditis DHEA-SULFATE (DHEA-S) Routine 12/25/2024 9:07 AM CDT Other malaise PMS (premenstrual syndrome) TESTOSTERONE,TOTAL Routine 12/25/2024 9: 07 AM CDT Yusuf's thyroiditis Other malaise ESTRADIOL Routine 12/25/2024 9:07 AM CDT Yusuf's thyroiditis Other malaise PROGESTERONE Routine 12/25/2024 9:07 AM CDT Yusuf's thyroiditis Other malaise EBV AB IGG IGM AND EBNA Routine 12/25/2024 9:07 AM CDT Other malaise TSH Routine 11/27/2024 9:41 AM PARKING ENFORCEMENT OFFICER Hypothyroidism, unspecified type XR MAMMO YANETH BILAT DIAG Routine 07/09/2023 9:29 AM CDT Mass of breast, unspecified laterality HPV HIGH RISK Routine 04/24/2022 10:31 AM CDT Cervical cancer screening LIPID PANEL W REFLEX MEASURED LDL Routine 04/16/2022 2:35 PM CDT Screening for lipid disorders SCAN-COLONOSCOPY 03/05/2017 8:30 AM CDT ANTI HIV 1/2 Routine 11/28/2016 4:22 PM PARKING ENFORCEMENT OFFICER Routine screening for STI (sexually transmitted infection) ANTI HCV Routine 11/28/2016 4:22 PM PARKING ENFORCEMENT OFFICER Routine screening for STI (sexually transmitted infection) from Last 3 Months or Most Recently Relevant to Health Maintenance Results * COMPLETE PULMONARY FUNCTION TEST WITH BRONCHODILATOR (01/28/2025 9:00 AM CDT) Narrative [facility] - 01/28/2025 9:00 AM CDT Uli Connor MD 01/28/2025 6:04 PM Pulmonary Function Testing Interpretation: Effort: Good effort with reproducible results. Spirometry and Flow Volume Loop: Normal spirometry. No significant response to bronchodilator inhalation. Lung Volumes: Normal total lung capacity. Elevated RV and RV/TLC indicates air trapping. Diffusing Capacity: Normal diffusion capacity Conclusion: Essentially normal pulmonary function testing. Evidence of air trapping could indicate small airway disease or asthma. Uli Connor MD Pulmonary Medicine and Critical Care [facility] Uli Connor MD PFT ORD Final Res ult [facility] [place], [place] * HEMOGLOBIN (01/28/2025 8:49 AM CDT) HEMOGLOBIN 14.0 12.0 - 16.0 g/dL 01/28/2025 8:52 AM CDT [facility] MCV 94 80 - 100 fL 01/28/2025 8:52 AM CDT [facility] Blood BLOOD SPECIMEN / Unknown Venipuncture / Unknown 01/28/2025 8:49 AM CDT 01/28/2025 8:49 AM CDT Uli Connor MD HEMATOLOGY Final Res ult Performing Organization Address [facility] Co de Phone Number [facility] [address] [place] [address], [place] [phone] * TSH (01/27/2025 8:58 AM CDT) Only the most recent of3 resultswithin the time period is included. TSH 2.64 mIU/L [facility] Comment: Reference Range > or = 20 Years 0.40-4.50 Ranges First trimester 0.26-2.66 Second trimester 0.55-2.73 Third trimester 0.43-2.91 Blood BLOOD SPECIMEN / Unknown 01/27/2025 8:58 AM CDT 01/27/2025 8:59 AM CDT Narrative [facility] - 01/28/2025 4:43 AM CDT FASTING:YES FASTING: YES Jadon Kwok MD CHEMISTRY Final Result [facility] [address] [place] [address], [facility] [address] [place] [address] * HEMOGLOBIN A1C (01/13/2025 11:22 AM CDT) HEMOGLOBIN A1C 5.5 <5.7 % [facility] Comment: For the purpose of screening for the presence of diabetes: <5.7% Consistent with the absence of diabetes 5.7-6.4% Consistent with increased risk for diabetes (prediabetes) > or =6.5% Consistent with diabetes This assay result is consistent with a decreased risk of diabetes. Currently, no consensus exists regarding use of hemoglobin A1c for diagnosis of diabetes in children. According to [place] Diabetes Association (ADA) guidelines, hemoglobin A1c <7.0% represents optimal control in non- diabetic patients. Different metrics may apply to specific patient populations. Standards of Medical Care in Diabetes(ADA). Blood BLOOD SPECIMEN / Unknown 01/13/2025 11:22 AM CDT 01/13/2025 11:22 AM CDT Ruth Aquino NP CHEMISTRY Final Result Performing Organization Address [facility] Co de Phone Number [facility] [address] [place] [phone], [facility] [address] [place] [address] * INSULIN (01/13/2025 11:22 AM CDT) INSULIN 3.9 uIU/mL [facility] Comment: Reference Range < or = 18.4 Risk: Optimal < or = 18.4 Moderate NA High >18.4 Adult cardiovascular event risk category cut points (optimal, moderate, high) are based on Insulin Reference Interval studies performed at [facility] in 2021. Blood BLOOD SPECIMEN / Unknown 01/13/2025 11:22 AM CDT 01/13/2025 11:22 AM CDT us Ruth Aquino MORTGAGE LOAN UNDERWRITER SEND OUTS Final Result [facility] [address] [place] [address], [place] [phone] [facility] [address] [place] [address] * COMP METABOLIC PANEL (01/13/2025 11:22 AM CDT) Pathologist [facility] GLUCOSE 94 65 - 99 mg/dL [facility] Comment: Fasting reference interval UREA NITROGEN (BUN) 16 7 - 25 mg/dL [facility] CREATININE 0.89 0.50 - 1.03 mg/dL [facility] EGFR 79 > OR = 60 mL/min/1. 73m2 [facility] BUN/CREATININE RATIO SEE NOTE: (calc) [facility] Comment: Not Reported: BUN and Creatinine are within reference range. SODIUM 139 135 - 146 mmol/L [facility] POTASSIUM 4.4 3.5 - 5.3 mmol/L [facility] CHLORIDE 103 98 - 110 mmol/L [facility] CARBON DIOXIDE 25 20 - 32 mmol/L [facility] CALCIUM 9.6 8.6 - 10.4 mg/dL [facility] PROTEIN, TOTAL 7.5 6.1 - 8.1 g/dL [facility] ALBUMIN 4.5 3.6 - 5.1 g/dL [facility] GLOBULIN 3.0 1.9 - 3.7 g/dL (calc) [facility] ALBUMIN/GLOBULIN RATIO 1.5 1.0 - 2.5 (calc) [facility] BILIRUBIN, TOTAL 0.6 0.2 - 1.2 mg/dL [facility] ALKALINE PHOSPHATASE 52 37 - 153 U/L [facility] AST 15 10 - 35 U/L [facility] ALT 16 6 - 29 U/L [facility] Blood BLOOD SPECIMEN / Unknown 01/13/2025 11:22 AM CDT 01/13/2025 11:22 AM CDT Ruth Aquino MORTGAGE LOAN UNDERWRITER CHEMISTRY Final Result Performing Organization Address City/[facility]/ZIP Co de Phone Number [facility] [address] [place] [address], [facility] [address] [place] [address] * SCAN-DIAGNOSTIC REPORT (12/30/2024 12:00 AM CDT) Narrative 12/30/2024 12:00 AM CDT Ordered by an unspecified provider. Other Clinical Staff OTHER Final Resul t * VITAMIN D 25 (DEFICIENCY) (12/25/2024 9:07 AM CDT) VITAMIN D,25-OH,TOTAL,IA 41 30 - 100 ng/mL [facility] Comment: Vitamin D Status 25-OH Vitamin D: Deficiency: <20 ng/mL Insufficiency: 20 - 29 ng/mL Optimal: > or = 30 ng/mL For 25-OH Vitamin D testing on patients on D2-supplementation and patients for whom quantitation of D2 and D3 fractions is required, the [facility] 25-OH VIT D, (D2,D3), LC/MS/MS is recommended: order code 01811 (patients >2yrs). See Note 1 Note 1 For additional information, please refer to http://education.Datumate.Miproto/faq/GSD275 (This link is being provided for informational/ educational purposes only.) Blood BLOOD SPECIMEN / Unknown 12/25/2024 9:07 AM CDT 12/25/2024 9:07 AM CDT Ruth Aquino MORTGAGE LOAN UNDERWRITER SEND OUTS Final Result Performing Organization Address City/[facility]/ZIP Co de Phone Number [facility] [address] [place] [address], [facility] [address] [place] [address] * (ABNORMAL) EBV AB IGG IGM AND EBNA (12/25/2024 9:07 AM CDT) [facility] EBV VIRAL CAPSID AG (VCA) AB (IGM) <36.00 U/mL [facility] Comment: U/mL Interpretation ---- <36.00 Negative 36.00-43.99 Equivocal >43.99 Positive EBV VIRAL CAPSID AG (VCA) AB (IGG) >750.00(H ) U/mL [facility] Comment: U/mL Interpretation ---- <18.00 Negative 18.00-21.99 Equivocal >21.99 Positive EBV NUCLEAR AG (EBNA) AB (IGG) >600.00(H ) U/mL [facility] Comment: U/mL Interpretation ---- <18.00 Negative 18.00-21.99 Equivocal >21.99 Positive GINA JIN VIRUS ANTIBODY PANEL INTERPRETATION [facility]elle [facility] Comment: Suggestive of a past Gina-Jin virus infection. In infants, a similar pattern may occur as a result of passive maternal transfer of antibody. Blood BLOOD SPECIMEN / Unknown 12/25/2024 9:07 AM CDT 12/25/2024 9:07 AM CDT Ruth Aquino MORTGAGE LOAN UNDERWRITER SEND OUTS Final Result [employer] [address] [address], [place] [phone] [facility] [address] [place] [address] * (ABNORMAL) IRON PLUS IRON BINDING CAP (12/25/2024 9:07 AM CDT) Pathologist [facility] IRON, TOTAL 41(L) 45 - 160 mcg/dL [facility] IRON BINDING CAPACITY 250 250 - 450 mcg/dL (calc) [facility] % SATURATION 16 16 - 45 % (calc) [facility] Blood BLOOD SPECIMEN / Unknown 12/25/2024 9:07 AM CDT 12/25/2024 9:07 AM CDT Ruth Aquino MORTGAGE LOAN UNDERWRITER CHEMISTRY Final Result Performing Organization Address [facility] Co de Phone Number [facility] [address] [place] [address], [place] [phone] [facility] [address] [place] [address] * T3,FREE (12/25/2024 9:07 AM CDT) Pathologist [facility] T3, FREE 3.0 2.3 - 4.2 pg/mL [facility] Blood BLOOD SPECIMEN / Unknown 12/25/2024 9:07 AM CDT 12/25/2024 9:07 AM CDT Ruth Aquino MORTGAGE LOAN UNDERWRITER CHEMISTRY Final Result Performing Organization Address [facility] Co de Phone Number [facility] [address] [place] [address], [place] [phone] [facility] [address] [place] [address] * T4,FREE (12/25/2024 9:07 AM CDT) Pathologist [facility] T4, FREE 1.4 0.8 - 1.8 ng/dL [facility] Blood BLOOD SPECIMEN / Unknown 12/25/2024 9:07 AM CDT 12/25/2024 9:07 AM CDT Ruth Aquino MORTGAGE LOAN UNDERWRITER CHEMISTRY Final Result Performing Organization Address [facility]/State/ZIP Co de Phone Number [facility] [address] [place] [address], [facility] [address] [place] [address] * TESTOSTERONE,TOTAL (12/25/2024 9:07 AM CDT) TESTOSTERONE, TOTAL, MS 13 2 - 45 ng/dL [facility] Comment: For additional information, please refer to https://education.KISSmetrics/faq/TotalTestosteroneLCMSMS (This link is being provided for informational/educational purposes only.) (Note) This test was developed and its analytical performance characteristics have been determined by [employer]. It has not been cleared or approved by the FDA. This assay has been validated pursuant to the CLIA regulations and is used for clinical purposes. [facility] [address] [address],[address] [place] [address] Candi Nelson MD, PhD Blood BLOOD SPECIMEN / Unknown 12/25/2024 9:07 AM CDT 12/25/2024 9:07 AM CDT Ruth Aquino MORTGAGE LOAN UNDERWRITER CHEMISTRY Final Result Performing Organization Address [facility]/ZIP Co de Phone Number [facility] [address] [place] [phone], [facility] [address] [place] [address], [address] [place] [phone] * PROGESTERONE (12/25/2024 9:07 AM CDT) PROGESTERONE 6.5 ng/mL [facility] Comment: Reference Ranges Female Follicular Phase < 1.0 Luteal Phase 2.6-21.5 Post menopausal < 0.5 1st Trimester 4.1-34.0 2nd Trimester 24.0-76.0 3rd Trimester 52.0-302.0 Blood BLOOD SPECIMEN / Unknown 12/25/2024 9:07 AM CDT 12/25/2024 9:07 AM CDT Ruth Aquino MORTGAGE LOAN UNDERWRITER SEND OUTS Final Result [facility] [address] [place] [address], [place] [phone] [facility] [address] [place] [address] * FERRITIN (12/25/2024 9:07 AM CDT) FERRITIN 31 16 - 232 ng/mL [facility] Blood BLOOD SPECIMEN / Unknown 12/25/2024 9:07 AM CDT 12/25/2024 9:07 AM CDT Ruth Aquino MORTGAGE LOAN UNDERWRITER CHEMISTRY Final Result Performing Organization Address [facility] de Phone Number [facility] [address] [place] [address], [place] [phone] [facility] [address] [place] [address] * ESTRADIOL (12/25/2024 9:07 AM CDT) Pathologist [facility] ESTRADIOL 72 pg/mL [facility] Comment: Reference Range Follicular Phase: 19-144 Mid-Cycle: 64-357 Luteal Phase: 56-214 Postmenopausal: < or = 31 Reference range established on post-pubertal patient population. No pre-pubertal reference range established using this assay. For any patients for whom low Estradiol levels are anticipated (e.g. males, pre-pubertal children and hypogonadal/post-menopausal females), the [employer] [facility] Estradiol, Ultrasensitive, LCMSMS assay is recommended (order code 62525). Please note: patients being treated with the drug fulvestrant (Faslodex(R)) have demonstrated significant interference in immunoassay methods for estradiol measurement. The cross reactivity could lead to falsely elevated estradiol test results leading to an inappropriate clinical assessment of estrogen status. [employer] order code [id number], Ultrasensitive LC/MS/MS demonstrates negligible cross reactivity with fulvestrant. Blood BLOOD SPECIMEN / Unknown 12/25/2024 9:07 AM CDT 12/25/2024 9:07 AM CDT Ruth Aquino MORTGAGE LOAN UNDERWRITER SEND OUTS Final Result Performing Organization Address [facility]/ZIP Co de Phone Number [facility] [employer] [facility] [address] [place] [address], [place] [phone] [facility] [address] [place] [address] * DHEA-SULFATE (DHEA-S) (12/25/2024 9:07 AM CDT) DHEA SULFATE 162 15 - 205 mcg/dL [facility] Blood BLOOD SPECIMEN / Unknown 12/25/2024 9:07 AM CDT 12/25/2024 9:07 AM CDT Ruth Aquino MORTGAGE LOAN UNDERWRITER SEND OUTS Final Result Performing Organization Address [facility] Co de Phone Number [employer] [facility] [address] [place] [address], [place] [phone] [facility] [address] [place] [address] * VITAMIN B12 (12/25/2024 9:07 AM CDT) VITAMIN B12 534 200 - 1,100 pg/mL [facility] Blood BLOOD SPECIMEN / Unknown 12/25/2024 9:07 AM CDT 12/25/2024 9:07 AM CDT Ruth Aquino MORTGAGE LOAN UNDERWRITER CHEMISTRY Final Result [employer] [facility] [address] [place] [address], [place] [phone] [facility] [address] [place] [address] * XR MAMMO YANETH BILAT DIAG (07/09/2023 9:29 AM CDT) Anatomical Region Laterality Modality BREASTS, Breast Left, Breast Right Bilateral Mammography 07/09/2023 11:2 5 AM CDT Impressions 07/09/2023 3:48 PM CDT No mammographic or sonographic findings for malignancy. Further management should be based clinically. Recommend continuing with yearly screening mammography. Results and recommendations were discussed with the patient at the time of diagnostic evaluation. BI-RADS Category 2: Benign Babs Lee M.D. Diagnostic/Breast Radiologist [email or web address] / PATIENTS: You will also receive a letter with your examination results in an easy to read format. If you have questions about your results, please contact your referring provider. Narrative 07/09/2023 3:48 PM CDT As a result of the Century Cures Act, medical imaging exams and procedure reports are released immediately into your electronic medical record. You may view this report before your referring provider. If you have questions, please contact your health care provider. BILATERAL BREAST MAMMOGRAM DIGITAL DIAGNOSTIC VIEWS WITH COMPUTER-AIDED DETECTION AND TOMOSYNTHESIS 07/09/2023 RIGHT BREAST ULTRASOUND 07/09/2023 CLINICAL HISTORY: RIGHT breast lump. COMPARISON: 04/13/2022. TECHNIQUE: These mammographic images were obtained using digital technique with computer-aided detection and tomosynthesis. RIGHT breast ultrasound was also performed. Ultrasound performed by radiologist and technologist. BREAST COMPOSITION: The breasts are heterogeneously dense, which may obscure small masses. FINDINGS: No suspicious findings mammographically. Ultrasound was performed over the area of lump at the 1 o'clock position 9 cm from the nipple. There is normal underlying soft tissue. Eula Shanks DO MAMMO Final Re sult * HPV HIGH RISK (04/24/2022 10:31 AM CDT) TYPE 16 Negative Negative 04/26/2022 5:29 PM CDT [facility] TYPE 18 Negative Negative 04/26/2022 5:29 PM CDT [facility] OTHER HIGH RISK TYPES Negative Negative 04/26/2022 5:29 PM CDT [facility] Other (Cervical/Vagina l) Non-Blood / Unknown 04/24/2022 10:31 AM CDT 04/25/2022 12:02 PM CDT Narrative [facility] - 04/26/2022 5:29 PM CDT HPV types 16, 18, 31, 33, 35, 39, 45, 51, 52, 56, 58, 59, 66 and 68 DNA were undetectable or below the pre-set threshold. Methodology: [employer] 4800 HPV Test us Antonia Pineda DO MICROBIOLOGY Final Result [facility] [address] [place] [address], [place] * (ABNORMAL) LIPID PANEL W REFLEX MEASURED LDL [[id number]] (04/16/2022 2:35 PM CDT) CHOLESTEROL,TOTAL 200(H) 100 - 199 mg/dL 04/17/2022 1:11 AM CDT [facility] TRIGLYCERIDES 66 <150 mg/dL 04/17/2022 1:11 AM CDT [facility] HDL CHOLESTEROL 62 >40 mg/dL 1:11 AM CDT [facility] NON-HDL CHOLESTEROL 138 <145 mg/dl 04/17/2022 1:11 AM CDT [facility] CHOL/HDL RATIO 3.23 <4.50 04/17/2022 1:11 AM CDT [facility] LDL CHOLESTEROL 125 <=130 mg/dL 04/17/2022 1:11 AM CDT [facility] VLDL CHOLESTEROL 13 <=30 mg/dL 04/17/2022 1:11 AM CDT [facility] PROVIDER ORDERED STATUS [place] 04/17/2022 1:11 AM CDT [facility] Blood BLOOD SPECIMEN / Unknown Venipuncture / Unknown 04/16/2022 2:35 PM CDT 04/16/2022 2:36 PM CDT us Tripp Sosa DO CHEMISTRY Final Res ult [facility] [address] [place] [address], [place] * SCAN-COLONOSCOPY (03/05/2017 8:30 AM CDT) Narrative Procedure Note Ruth He MD - 03/05/2017 7:50 AM CDT [facility] [address], [address], [place] [address] Patient Name: Ila Moore Gender: Female Exam Date: 03/05/2017 Visit Number: [id number] Age: 41 Years Date of : 1975 Attending MD: Ruth eH MD Medical Record#: [id number] ----- Procedure: Colonoscopy Indications: Family history of polyps in patient's sister. Agediagnosed: 50-59. Rectal bleeding Referring MD: Liya Lundberg MD Primary MD: Liya Lundberg MD Medications: Complications: Procedure: An examination of the heart and lungs was performed and found to be withinacceptable limits. The patient was therefore deemed a reasonablecandidate for endoscopy and 0 sedation. The risks and benefits of the procedure were explained to the patient.After obtaining informed consent, the patient received monitoredanesthesia care and I passed the scope without difficulty via the rectum to the ileum. The appendiceal orificeand ic valve were identified. The scope was retroflexed during theexamination The quality of the prep was good (Miralax/Gatorade/2 tabletsBisacodyl/Magnesium Citrate). This was a complete examination throughout the entire colon. Findings: Normal finding. Location - ileum. Polyp location: sigmoid. Quantity: 1. Size: 2 mm. Polyp shape:sessile. Maneuver: polypectomy was performed with a cold biopsy forceps. Removal: complete. Retrieval: complete. Bleeding: none. Hemorrhoids. Internal hemorrhoids without bleeding. Random biopsies were taken throughout the colon to rule out microscopiccolitis. Impression: Screening Colonoscopy Internal hemorrhoids Hemorrhoids were found on your exam today. Please consider making afollow up office appointment for treatment. Procedure: Upper GI Endoscopy Indications: dysphagia, loose stools Provider: Ruth He MD Referring MD: Liya Lundberg MD Primary MD: Liya Lundberg MD Complications: No immediate complications Procedure: An examination of the heart and lungs was performed within acceptablelimits. The patient was therefore deemed a reasonable candidate forsedation. The risks and benefits were explained to the patient, who appeared tounderstand. After obtaining informed consent, the scope was passed underdirect vision. Throughout the procedure the patient's blood pressure,pulse and oxygen saturations were monitored. The scope was introducedthrough the mouth and advanced to the second portion of duodenum. Findings: Esophagus: Normal esophagus. The z-line is 38 centimeters from the incisors. *Esophagus Comments: Distal esophagus biopsies were taken to rule outeosinophilic esophagitis. Stomach: Normal stomach. Duodenum: Normal duodenum. Celiac Sprue biopsies taken. Celiac Sprue biopsies taken. Impression: Dysphagia, unspecified type Pathology Results: A: DUODENUM, BIOPSY: 1. Normal small bowel mucosa 2. No histologic evidence of celiac disease or other enteropathy B: ESOPHAGUS, BIOPSY: 1. Esophageal eosinophilia (peak count of 25), see comment 2. Negative for columnar mucosa C: COLON, RANDOM, BIOPSY: 1. Normal colonic mucosa 2. Negative for microscopic, active, and chronic colitis D: COLON, SIGMOID, POLYP: Hyperplastic polyp COMMENTS B. The differential diagnosis primarily includes eosinophilic esophagitis(EoE), proton-pump inhibitor-responsive esophageal eosinophilia (PPI-REE)and gastroesophageal reflux disease (GERD) with more eosinophils thantypical (Lenore Singh. S. (2013) Am.J.Gastroenterol., PMID [id number]). MICROSCOPIC A: Performed B: Performed C: Performed D: Performed I: Performed Electronically signed by: Eamon White MD Your esophagus showed eosinophils which can be due to a condition calledeosinophilic esophagitis but it was not high enough to meet criteria. Weoften see eosinophils due to reflux as well. I recommend a trial on anacid suppressing medication to see if symptoms resolve. Please follow upwith me in clinic in 3-4 weeks to reassess your symptoms. Orders: Patient Education given to patient: Colon: Hemorrhoids Hemorrhoid Banding Additional Comments: Your esophagus showed eosinophils which can be due to a condition calledeosinophilic esophagitis but it was not high enough to meet criteria. Weoften see eosinophils due to reflux as well. I recommend a trial on anacid suppressing medication to see if symptoms resolve. Please follow upwith me in clinic in 3-4 weeks to reassess your symptoms. _Electronically signed by: Ruth He MD 03/05/2017 cc: Liya Lundberg MD cc: Toño PETE, Liya Ruth He MD OTHER Final Resul t * ANTI HCV (11/28/2016 4:22 PM PARKING ENFORCEMENT OFFICER) HEPATITIS C ANTIBODY Non-Reacti ve Non-Reacti ve 11/28/2016 11:02 PM PARKING ENFORCEMENT OFFICER [facility] Blood BLOOD SPECIMEN / Unknown Venipuncture / Unknown 11/28/2016 4:22 PM PARKING ENFORCEMENT OFFICER 11/28/2016 4:22 PM PARKING ENFORCEMENT OFFICER Narrative [facility] - 11/28/2016 11:02 PM PARKING ENFORCEMENT OFFICER Antibodies to HCV not detected; does not exclude the possibility of exposure to HCV. Zenaida Lundberg MD SEND OUTS Final Resu lt [facility] [address] [place] [address], * ANTI HIV 1/2 (11/28/2016 4:22 PM PARKING ENFORCEMENT OFFICER) Pathologist [facility] HIV-1/HIV-2 ANTIBODY Non-Reacti ve Non-Reacti ve 11/28/2016 10:57 PM PARKING ENFORCEMENT OFFICER [facility] Blood BLOOD SPECIMEN / Unknown Venipuncture / Unknown 11/28/2016 4:22 PM PARKING ENFORCEMENT OFFICER 11/28/2016 4:22 PM PARKING ENFORCEMENT OFFICER Narrative [facility] - 11/28/2016 10:57 PM PARKING ENFORCEMENT OFFICER HIV-1 p24 and HIV-1/HIV-2 Ab not detected us Zenaida Lundberg MD SEND OUTS Final Resu lt Performing Organization Address City/[facility]/ZIP Co de Phone Number [facility] [address] [place] [address], from Last 3 Months or Most Recently Relevant to Health Maintenance Insurance [facility] Care Teams Construction Secretary Relationship Specialty Start Date End Date Pcp, No . PCP - General 01/19/25 Phyllis Temple MBBS [address] [place] [address] Endocrinology 06/03/23
--- OUTSIDE RECORDS SUMMARY | 2025-02-04 17:04 | XMS_ITS | Clinical Summary ---
Author Organization [facility] Address [address] [place] [address] Care Team Providers Care Pv Installer Tech Name Role Phone Alejandra Yu M.D. Primary Care Provider [phone]- [phone] Source Comments Patient records contain information from all sites at [facility]. For routine questions regarding patient records, call [phone] during business hours, M-F 8:00 AM - 5:00 PM Central Time. Record requests for emergency care only can be directed to [phone] at any time.[facility] Allergies No known active allergies Medications levothyroxine (SYNTHROID, LEVOTHROID) 50 mcg tablet Take 125 mcg by mouth. 06/21/2023 Active cholecalciferol (VITAMIN D3) 1,250 mcg (50,000 Unit) capsule Take 50,000 Units by mouth over 168 hr. 01/23/2024 Active Active Problems Problem Noted Date Diagnosed Date Aneurysm Carotid Artery 10/24/2023 Overview (10/24/2023): MRA completed at [facility] 09/18/23 showing possible 3 mm aneurysm in the R internal carotid. 6-month follow-up recommended. Palpitations 06/27/2023 Paresthesia 09/04/2022 03/11/2023 Neuralgia And Neuritis Unspecified 09/04/2022 Astigmatism Regular Bilateral 05/22/2022 Presbyopia 05/22/2022 03/11/2023 Polyp Colon 03/05/2017 03/11/2023 Other Hemorrhoids 03/05/2017 Dysphagia 12/10/2016 03/11/2023 Anxiety Generalized Disorder 08/11/2003 Hypothyroidism 08/11/2003 03/11/2023 Depression Major Recurrent In Remission 08/11/20 03 Encounters Date Type Department Care Team Description 11/24/2024 Clinical Communication Department of Family Medicine, [facility], in [address] [address] Alejandra Yu M.D. Health Maintenance from Last 3 Months Immunizations Immunization Administration Dates Next Due DTP 04/27/1980, 6,01/13/1975,[birth year] H1N1 All Forms 09/21/2009 HepA Adult 07/01/2006,12/11/2005 HepA, Unspecified 07/01/2006,12/11/2005 HepB Adult 03/22/2004,09/10/2003,08/11/2003 HepB, Unspecified 03/22/2004,09/10/2003,08/11/20 03 Influenza TIV (IM) 06/23/2009 Influenza, Seasonal, Injectable 06/23/2009 Influenza, Unspecified 06/23/2009 MMR 02/01/1992,09/07/1975 Td (Adult), adsorbed 08/11/2003,07/08/1989,06/22 Td Preservative Free (TENIVA C, DECAVAC) 08/11/2003,07/08/1989 Tdap 11/25/2013 Family History Medical History Relation Name Comments Mitral valve disorder Father Prostate cancer Father Gallbladder Ca Mother Bicuspid aortic valve Sister 1 Multiple myeloma Sister 2 Relation Name Status Comments Father Mother Sister 1 Sister 2 Alive Social History Tobacco Use Types Packs/Day Years Used Date Smoking Tobacco: Never Smokeless Tobacco: Never Tobacco Cessation:Counseling Given: Not Answered Alcohol Use Standard Drinks/Week Comments Not Currently 0 (1 standard drink = 0.6 oz pur e alcohol) Humiliation, Afraid, Rape, and Kick questionnair e Answer Date Recorded Within the last year, have y ou been afraid of your partner or ex-partner? No 02/27/2023 Within the last year, have y ou been humiliated or emotionally abused in other ways by your partner or ex-partner? No Within the last year, have y ou been kicked, hit, slapped, or otherwise physically hurt by your partner or ex-partner? No 02/27/2023 Within the last year, have y ou been raped or forced to have any kind of sexual activity by your partner or ex-partner? No 02/27/2023 Overall Financial Resource Strain (CARDIA) Answe r Date Recorded How hard is it for you to pa y for the very basics like food, housing, medical care, and heating? Somewhat hard 02/27/2023 PHQ-2 Answer Date Recorded PHQ-2 Score 0 04/02/2024 Exercise Vital Sign Answer Date Recorde d On average, how many days pe r week do you engage in moderate to strenuous exercise (like a brisk walk)? 0 days 02/27/2023 On average, how many minutes do you engage in exercise at this level? 0 min 02/27/2023 Hunger Vital Sign Answer Date Recorded Within the past 12 months, y ou worried that your food would run out before you got the money to buy more. Patient declined Within the past 12 months, t he food you bought just didn't last and you didn't have money to get more. Patient declined 03/2023 PRAPARE - Transportation Answer Date Re corded In the past 12 months, has l ack of transportation kept you from medical appointments or from getting medications? No 03/2023 In the past 12 months, has l ack of transportation kept you from meetings, work, or from getting things needed for daily living? No 02/27/2023 Depression Answer Date Recor ded PHQ-9 Total Score (max 27) 0 04/02 Nutrition Answer Date Recorded On average, how many serving s of fruits and vegetables do you eat per day (serving size is equal to 1 cup or approximately the size of a tennis ball)? 3-5 02/27/2023 Dental Answer Date Recorded Dental: Regular Dentist No 02/28/20 Housing Stability Answer Date Recorded What is your living situation today? I have a [facility] place to live 02/27/2023 Comments No Sex and Gender Information Value Date Recorded Sex Assigned at Female 04/11/2023 10:01 PM CDT Legal Sex Female 8:55 AM CDT Gender Identity Female 04/11/2023 10:01 PM CDT Sexual Orientation Straight 04/11/2023 10 :01 PM CDT Last Filed Vital Signs Vital Sign Reading Time Taken Comments Blood Pressure 117/78 04/02/2024 3:40 PM CDT Pulse 79 04/02/2024 3:40 PM CDT Temperature 36.6 C (97.9 F) 04/02/2024 3:40 PM CDT Respiratory Rate 13 04/02/2024 3:40 PM CDT Oxygen Saturation 100% 11/12/2023 7:57 AM AUTOMOBILE TIRE BUILDER Inhaled Oxygen Concentration - - Weight 67.4 kg (148 lb 9.4 oz) 04/02/2024 3:40 P M CDT Height 170 cm (5' 6.93) 10/24/2023 11:24 AM AUTOMOBILE TIRE BUILDER Body Mass Index 23.32 10/24/2023 11:24 AM AUTOMOBILE TIRE BUILDER Plan of Treatment Health Maintenance Due Date Last Done Comments CT Colonography 1975 Cologuard 1975 HIV Screening 1975 Hepatitis C Screening 1975 Colonoscopy 03/05/2022 03/05/2017 Colorectal Cancer Surveillance 03/05/2022 DTaP,Tdap,and Td Vaccines (7 - Td or Tdap) 11/26/2023 11/25/2013, 08/11/2003, 08/11/2003, Additional history exists COVID-19 Vaccine ( season) 2024 Influenza Vaccine (#1) 2024 9, 06/23/2009, 06/23/2009 Mammogram 07/09/2024 07/09/2023, 06/23, 04/13/2022 Depression Monitoring (PHQ-9) 08/03/2024 04/02/2024 Pneumococcal vaccine (50+ years) (1 of 1 - PCV) 2024 Zoster Vaccines (1 of 2) 2024 Depression Monitoring (PHQ-9 for quality tracking) 09/23/2024 Thyroid Stimulating Hormone (TSH) test for thyroid function 04/27/2025 04/27/2024, 03/27/2024, 10/29/2023, Additional history exists Fasting Glucose for Diabetes Screening 10/29/2026 10/29/2023, 09/12/2023, 02/19/2023, Additional history exists Cervical/Vaginal Cancer Screening 04/24/2027 04/24/2022 Lipid (Cholesterol) Screening 07/05/2027 07/05/2022, 04/16/2022 Hepatitis B Vaccines Completed 03/22/2004, 03/22/2004, 09/10/2003, Additional history exists Hepatitis A Vaccines Completed 07/01/2006, 07/01/2006, 12/11/2005, Additional history exists IPV Vaccines Aged Out No longer eligi ble based on patient's age to complete this topic Procedures Procedure Name Priority Date/Time Associated Diagnosis Comments THYROID-STIMULATING HORMONE-SENSITIVE (S-TSH) Routine 04/12/2023 10:44 AM CDT Hypothyroidism EXT THINPREP W/HPV CO-TEST SCREEN Routine 04/24/2022 from Last 3 Months or Most Recently Relevant to Health Maintenance Results * S-TSH (Thyroid-Stimulating Hormone - Sensitive) (04/12/2023 10:44 AM CDT) Pathologist [facility] TSH, Sensitive 1.7 0.3 - 4.2 mIU/L 04/12/2023 11:44 AM CDT DTL Blood (Blood, Venous) 04/12/2023 10:44 AM CDT 04/12/2023 11:20 AM CDT Veronique Suarez M.D. LAB BLOOD ADD -ON Final Result [facility] [address] [place] [address], [place] DTL [facility] [address] [place] [address] * EXT ThinPrep w/HPV Co-Test Screen (04/24/2022) Pathologist [facility] EXT ThinPrep w/HPV Co-Test Screen Normal - See Scanned Report for Details Normal - See Scanned Report for Details, HIMS - Report Received and Scanned Thin Prep Vial (Cervix/Endocervi x) 04/24/2022 us Historical Provider LAB PAP PATHDX ORDERABLES Fi nal Result from Last 3 Months or Most Recently Relevant to Health Maintenance Insurance [id number] Care Teams Pv Installer Tech Relationship Specialty Start Date End Date Alejandra Yu M.D. [address] [place] [phone] PCP - General Family Medicine 02/08/23
--- OUTSIDE RECORDS SUMMARY | 2025-02-04 17:04 | XMS_ITS | Clinical Summary ---
Author Organization [facility] Address [address] [place] [address] Care Team Providers Care Rail Operations Controller Name Role Phone Steff Hurtado DNP, ASSISTANT DIRECTOR OF PLANT OPERATIONS, REGULATORY LEADER Primary Care Pro vider Source Comments You are receiving this document as you are listed as the primary care provider,follow-up provider, or the patient has been referred to you for consultation.This is in compliance with the Medicare and[facility] EHR Incentive Program,which states Providers who transition their patient to another setting of careor provider of care or refers their patient to another provider of care shouldprovide summary care record for each transition of care or referral. [facility] Allergies No known active allergies Medications cholecalciferol (VITAMIN D3) 1.25 MG (09636 UT) capsule Take 1 Capsule (50,000 Units) by mouth once every week. 12 Capsule 01/23/2024 Active UNITHROID 125 MCG tablet Take 1 Tablet (125 mcg) by mouth daily. Active Active Problems Problem Noted Date Diagnosed Date Vomiting 01/23/2024 Primary hypothyroidism 12/05/2023 Carotid artery aneurysm 10/24/2023 Overview (12/02/2023): MRA completed at [facility] 09/18/23 showing possible 3 mm aneurysm in the R internal carotid. 6-month follow-up recommended. Cobalamin deficiency 06/19/2023 Neuropathic pain 09/04/2022 Hand paresthesia 09/04/2022 Paresthesia 09/04/2022 Neuralgia and neuritis, unspecified 09/04/2022 Asthenopia 05/22/2022 Presbyopia 05/22/2022 Periorbital hyperpigmentation 05/22/2022 Hyperopia, bilateral 05/22/2022 Regular astigmatism, bilateral 05/22/2022 Regular astigmatism 05/22/2022 Intestinal malabsorption 07/10/2017 Steatorrhea 07/01/2017 Polyp of colon 03/05/2017 Other hemorrhoids 03/05/2017 Dysphagia 12/10/2016 Other acne 08/11/2003 Yusuf's thyroiditis 08/11/2003 Overview (03/30/2024): Problem list name updated by automated process. Provider to review Resolved Problems Problem Noted Date Diagnosed Date Resolved Date Palpitations 06/27/2023 03/30/2024 Rectal bleeding 12/10/2016 05/16/2023 Magnetic resonance imaging of brain abnormal 1 05/16/2023 Recurrent major depressive d isorder, in remission 08/11/2003 12/02/2023 Anxiety state 08/11/2003 12/02/2023 Overview (05/16/2023): Problem list name updated by automated process. Provider to review Problem list name updated by automated process. Provider to review Immunizations Immunization Administration Dates Next Due DTP 04/27/1980, 6,01/13/1975,1974,1974 Flu Vac (3+ yrs) 06/23/2009 [id number] 09/21/2009 HepA Adult (19+ yrs) 07/01/2006,12/11/2005 HepA, Unspecified Formulation 07/01/2006, 006 HepB Adult (Engerix-B, 20+ y rs, 3 dose series) 03/22/2004,03/22/2004,09/10/2003,2002,08/11/2003,08/11/2003 HepB, Unspecified Formulation 03/22/2004, 003,08/11/2003 Influenza aIIV3 65+ Years (Fluad) 06/23/2009 MMR 02/01/1992,09/07/1975 OPV, Trivalent (Orimune or tOPV) 976,01/13/1975,1974,1974 Td 08/11/2003, 3,07/08/1989,1988,06/22/1989 Tdap 11/25/2013 Family History Medical History Relation Name Comments Cancer, Breast Maternal Aunt Cancer, Breast Maternal Grandmother Relation Name Status Comments Maternal Aunt Maternal Grandmother Social History Tobacco Use Types Packs/Day Years Used Date Smoking Tobacco: Never Smokeless Tobacco: Never Alcohol Use Standard Drinks/Week Comments No 0 (1 standard drink = 0.6 oz pur e alcohol) Financial Resource Strain Answer Date R ecorded Is it hard for you to pay fo r the very basics like food, housing, medical care or heating? No 12/05/2023 Food Insecurity Answer Date Recorded Does your food run out before you have the money to buy more? No 12/05/2023 Transportation Needs Answer Date Record ed Does a lack of transportatio n keep you from your medical appointments or from getting your medications? No 024 Comments No Sex and Gender Information Value Date Recorded Sex Assigned at Not on file Legal Sex Female 5:00 AM CDT Gender Identity Not on file Sexual Orientation Not on file Last Filed Vital Signs Vital Sign Reading Time Taken Comments Blood Pressure 104/65 03/30/2024 7:01 AM CDT Pulse 66 05/29/2024 8:32 AM CDT Temperature 35.3 C (95.6 F) 05/29/2024 8:32 AM CDT Respiratory Rate 12 05/29/2024 8:32 AM CDT Oxygen Saturation 99% 05/29/2024 8:32 AM CDT Inhaled Oxygen Concentration - - Weight 65.3 kg (144 lb) 06/11/2024 7:10 AM CDT Height 172.7 cm (5' 8) 06/11/2024 7:10 AM CDT Body Mass Index 21.9 06/11/2024 7:10 AM CDT Plan of Treatment Health Maintenance Due Date Last Done Comments Colon Cancer Screening Plan Due 1974 DTaP/Tdap/Td Vaccine (7 - Tdap) 11/26/2023 11/25/2013, 08/11/2003, 08/11/2003, Additional history exists COVID-19 Vaccine (1 - 2023- season) 2024 Mammogram 07/09/2024 07/09/2023, 04/13/2022 Pneumococcal Vaccine 50+ Yrs (1 of 1 - PCV) 2024 Zoster/Shingles Vaccine (1 of 2) 2024 Adult Preventive Visit 12/04/2024 12/05/2023, 1998 Influenza Vaccine (Season Ended) 2025 06/23/2009, 06/23/2009 Cervical Cancer Screening 04/24/20272021 (Completed), 05/03/2006 Cholesterol 12/04/2028 12/05/2023, 05/03/2006 IPV (Polio) Vaccine Completed 03/02/1976, 01/13/1975, 1974, Additional history exists HepB Vaccine Completed 03/22/2004, 02/23, 03/22/2004, Additional history exists HepA Vaccine Completed 07/01/2006, 05/2006, 12/11/2005, Additional history exists HIV Screening (Preventive Services) Completed 11/28/2016, 05/03/2006 Hep C Screening (Preventive Services) Completed 12/05/2023 Hib Vaccine Aged Out No longer eligi ble based on patient's age to complete this topic MCV4 Vaccine Aged Out No longer eligi ble based on patient's age to complete this topic Meningococcal B Vaccine Aged Out No l onger eligible based on patient's age to complete this topic Procedures Procedure Name Priority Date/Time Associated Diagnosis Comments HEPATITIS C ANTIBODY, WITH REFLEX Routine 12/05/2023 12:24 PM CDT Need for hepatitis C screening test LIPID PANEL & DIRECT LDL (IF NEEDED) Routine 12/05/2023 12:24 PM CDT Screening for cholesterol level ANATOMICAL PATH LIQUID BASED Routine 05/03/2006 12:10 PM CDT HIV ANTIBODY Routine 05/03/2006 10:16 AM CDT from Last 3 Months or Most Recently Relevant to Health Maintenance Results * Lipid Panel and Direct LDL(If Needed) (12/05/2023 12:24 PM CDT) Pathologist [facility] Cholesterol 188 0 - 199 mg/dL 12/05/2023 4:34 PM CDT [facility] Triglyceride 47 <=149 mg/dL 12/05/2023 4:34 PM CDT [facility] HDL Cholesterol 58 >=40 mg/dL 4:34 PM CDT [facility] LDL, Calculated 121 <130 mg/dL 4:34 PM CDT [facility] Non HDL Chol, Calculated 130 <=159 mg/dL 12/05/2023 4:34 PM CDT [facility] Cholesterol/HDL Ratio 3.2 <=5.0 12/05/2023 4:34 PM CDT [facility] Hours Fasting 12.0 8 - 12 Hours 12/05/2023 4:34 PM CDT [facility] Blood Venipuncture / Unknown 12/05/2023 12:24 PM CDT 12/05/2023 12:24 PM CDT us Steff Hurtado DNP, ASSISTANT DIRECTOR OF PLANT OPERATIONS, REGULATORY LEADER LAB_1 F inal Result Performing Organization Address City/State/[facility] Co de Phone Number [facility] [address] [place] [address] * Hepatitis C Antibody, with Reflex (12/05/2023 12:24 PM CDT) Pathologist [facility] Hepatitis C Antibody Negative (Non Reactive) Negative (Non Reactive) 12/05/2023 9:16 PM CDT [facility] Comment:Antibodies to HCV no t detected. Does not exclude the possiblity of exposure to HCV. Blood Venipuncture / Unknown 12/05/2023 12:24 PM CDT 12/05/2023 12:24 PM CDT us Steff Hurtado DNP, ASSISTANT DIRECTOR OF PLANT OPERATIONS, REGULATORY LEADER LAB_1 F inal Result [facility] [address] * Pap Smear (05/03/2006 12:10 PM CDT) PAP Smear Liquid Based SEE TEXT No normal range [facility] CONVERSION Comment: Patient: ILA MOORE CERVICAL CYTOLOGY REPORT Pathology # [id number] Date Obtained: Date Received: CYTOLOGIC IMPRESSION: Negative for intraepithelial lesion or malignancy. Verified 05/15/06 by: KGM (electronic signature) ADDITIONAL DATA LMP: CLINICAL HIST POST MISCAR LIQUID BASED PAP CERVICAL SPECIMEN ADEQUACY: Satisfactory. ENDOCERVICAL CELLS: Present. 05/03/2006 12:1 0 PM CDT us Eamon Bryant MD LAB_1 Final Result Performing Organization Address City/[facility] Co de Phone Number [facility] CONVERSION * HIV Antibody (05/03/2006 10:16 AM CDT) HIV 1/HIV 2 Non Reac Non Reac HP CONVERSION 05/03/2006 10:1 6 AM CDT us Eamon Bryant MD LAB_1 Final Result Performing Organization Address City/State/[facility] Co de Phone Number HP CONVERSION from Last 3 Months or Most Recently Relevant to Health Maintenance Insurance HP FULLY INSURED HP FULLY INSURED Care Teams Rail Operations Controller Relationship Specialty Start Date End Date Steff Hurtado, DNP, ASSISTANT DIRECTOR OF PLANT OPERATIONS, REGULATORY LEADER [address] [place] [address] PCP - General Nurse Practitioner 06/15/23
--- OUTSIDE RECORDS SUMMARY | 2025-02-04 17:04 | XMS_ITS | Encounter Summary ---
Author Organization [facility] Address [address] [place] [address] Care Team Providers Care Client Experience Specialist Name Role Phone Vicente Avalos MD Unavailable [phone] Dahlia Colindres MD Unavailable [phone] Dahlia Colindres MD Unavailable [phone] Jerson Rdoriguez MD Unavailable [phone] Angel James MD Unavailable [phone] Ky Talamantes MD Unavailable Kell Harding MD Unavailable [phone] Ky Talamantes MD Unavailable [phone] Jazz Linn MD Unavailable [phone] Veda Diaz PA-C Unavailable Veda Diaz PA-C Unavailable +[phone] Tejal Jules MD Primary Care Provider + [phone] Tejal Jules MD Unavailable [phone] Encounter Details Date Type Department Care Team (Late st Contact Info) Description 03/13/2024 [facility] Endocrinology [place] [id number] [facility] 3rd [place] [address] Radha Connor, RN Social History Tobacco Use Types Packs/Day Years Used Date Smoking Tobacco: Never Passive Smoke Exposure: Never Smokeless Tobacco: Never Alcohol Use Standard Drinks/Week Comments Never 0 (1 standard drink = 0.6 oz pur e alcohol) PHQ-2 Answer Date Recorded PHQ-2 Score 0 [...] on file Legal Sex Female 4:30 AM INSURANCE BUSINESS ANALYST Gender Identity Not on file Sexual Orientation Not on file 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 Not on file Not on f ile documented as of this encounter Plan of Treatment Upcoming Encounters Date Type Department Care Team (Late st Contact Info) Description 02/05/2025 8:00 AM CDT Virtual Visit [facility] [address] [address] Dahlia Frost PA-C [address] [place] [address] [id number] documented as of this encounter Visit Diagnoses Not on filedocumented in this encounter Additional Health Concerns Assessment Noted Time PHQ-9 Depression Total Score: 0 04/05/20 22 9:42 AM CDT documented as of this encounter Care Teams Client Experience Specialist Relationship Specialty Start Date End Date Tejal Jules MD [address] [facility] [address] [place] [address] PCP - General Family Medicine 03/11/24 Vicente Avalos MD [address] [place] [address] Assigned Heart and Vascular Provider 03/03/22 08/14/24 Dahlia Colindres MD [address] [place] [address] Ophthalmology 12/28/22 06/10/24 Dahlia Colindres MD [address] [place] [address] Assigned Surgical Provider 01/12/23 07/14/24 Jerson Rodriguez MD [address] [place] [address] [place] [id number] Internal Medicine 02/14/23 Angel James MD [address] [place] [address], [id number] [place], [place] [address] Resident Internal Medicine - Pediatrics 02/14/23 Ky Talamantes MD [address] [place] [address] Neurology 03/04/23 Kell Harding MD [address] [place] [address] [place] [address] Assigned PCP 03/02/23 09/13/24 Ky Talamantes MD [address] [place] [address] Assigned Neuroscience Provider 03/16/23 09/13/24 Jazz Linn MD [address] [place] [address] Assigned Endocrinology Provider 08/31/23 Veda Diaz PA-C [address] [place] [address] Physician English Horn Player Rheumatology 11/20/23 Veda Diaz PA-C [address] [place] [address] Assigned Rheumatology Provider 12/06/23 Tejal Jules MD [address] [facility] [address] [place] [address] Assigned PCP 09/14/24 documented as of this encounter
--- OUTSIDE RECORDS SUMMARY | 2025-02-04 17:04 | XMS_ITS | Encounter Summary ---
Author Organization [facility] Address [address] [place] [address] Care Team Providers Care Pigment Processor Name Role Phone Vicente Avalos MD Unavailable [phone] Dahlia Colindres MD Unavailable [phone] Dahlia Colindres MD Unavailable Jerson Rodriguez MD Unavailable [phone] Angel James MD Unavailable [phone] Kell Harding MD Primary Care Provider + [phone] Loulou Cage Unavailable Unavailable Ky Talamantes MD Unavailable [phone] Kell Harding MD Unavailable [phone] Ky Talamantes MD Unavailable [phone] Jazz Linn MD Unavailable [phone] Veda Diaz PA-C Unavailable [phone] Veda Diaz PA-C Unavailable + [phone] None Primary Care Provider Unavailritesh e Tejal Jules MD Primary Care Provider + [phone] Tejal Jules MD Unavailable [phone] Encounter Details Date Type Department Care Team (Late st Contact Info) Description 11/23/2023 MyC Medical Advice [facility] [address] [place] [address] Sumi Evans CMA Social History Tobacco Use Types Packs/Day Years [...] on file Legal Sex Female 4:30 AM COMMUNICATIONS TECH Gender Identity Not on file Sexual Orientation Not on file 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 Not on f ile documented as of this encounter Plan of Treatment Upcoming Encounters Date Type Department Care Team (Late st Contact Info) Description 02/05/2025 8:00 AM CDT Virtual Visit [facility] [address] [address] Dahlia Frost PA-C [address] [place] [address] [phone] documented as of this encounter Visit Diagnoses Not on filedocumented in this encounter Additional Health Concerns Assessment Noted Time PHQ-9 Depression Total Score: 0 04/05/20 22 9:42 AM CDT documented as of this encounter Care Teams Pigment Processor Relationship Specialty Start Date End Date Kell Harding MD [address] [place] [address] PCP - General Internal Medicine - Pediatrics 02/26/23 02/26/24 None PCP - General 02/27/24 03/10/24 Tejal Jules MD [address] [place] [address] PCP - General Family Medicine 03/11/24 Vicente Avalos MD [address] [place] [address] Assigned Heart and Vascular Provider 03/03/22 08/14/24 Dahlia Colindres MD [address] [place] [id number] Ophthalmology 12/28/22 06/10/24 Dahlia Colindres MD [address] [place], [place] [address] Assigned Surgical Provider 01/12/23 07/14/24 Jerson Rodriguez MD [address] [place] [id number] Internal Medicine 02/14/23 Angel James MD [address] [place] [address], CNZ075 [place], [place] [id number] Resident Internal Medicine - Pediatrics 02/14/23 Loulou Cage Personal Advocate & Liaison (PAL) 02/26/23 01/20/24 Ky Talamantes MD [address] [place] [id number] Neurology 03/04/23 Kell Harding MD [address] [facility] [address] Assigned PCP 03/02/23 09/13/24 Ky Talamantes MD [address] [place] [address] Assigned Neuroscience Provider 03/16/23 09/13/24 Jazz Linn MD [address] [place] [address] Assigned Endocrinology Provider 08/31/23 Veda Diaz PA-C [address] [place] [address] Physician Clinical Project Assistant Rheumatology 11/20/23 Veda Diaz PA-C [address] [place] [address] Assigned Rheumatology Provider 12/06/23 Tejal Jules MD [address] [facility] [address] [place] [address] Assigned PCP 09/14/24 documented as of this encounter
--- OUTSIDE RECORDS SUMMARY | 2025-02-04 17:31 | XMS_ITS | Encounter Summary ---
Author Organization [facility] Address [address] [place] [address] Care Team Providers Care Produce Wrapper Name Role Phone Vicente Avalos MD Unavailable [phone] Dahlia Colindres MD Unavailable [phone] Dahlia Colindres MD Unavailable [phone] Jerson Rodriguez MD Unavailable [phone] Angel James MD Unavailable [phone] Kell Harding MD Primary Care Provider + [phone] Loulou Cage Unavailable Unavailable Ky Talamantes MD Unavailable [phone] Kell Harding MD Unavailable [phone] Ky Talamantes MD Unavailable [phone] Jazz Linn MD Unavailable [phone] Margarette Montemayor NP Unavailable [phone] Zina Og Unavailable Veda Diaz PA-C Unavailable [phone] Veda Diaz PA-C Unavailable [phone] Veda Diaz PA-C Unavailable + [phone] None Primary Care Provider Unavailabl e Tejal Jules MD Primary Care Provider [phone] Tejal Jules MD Unavailable [phone] Reason for Visit * Reason Onset Date Comments Call Back 09/06/2023 Feed back Encounter Details Date Type Department Care Team (Late st Contact Info) Description 09/06/2023 Telephone [facility] Endocrinology [address] [address] Jazz Linn MD [address] [place] [address] Call Back (Feed back) Social History [...] on file 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 Per pt would like if Corriecalls her back. Per pt has a few questions and some feed back. Please and thank you! Action Taken: Message routed to: [facility] ENDO Travel Screening: Not Applicable NG MATERIAL WEIGHER documented in this encounter Plan of Treatment Upcoming Encounters Date Type Department Care Team (Late st Contact Info) Description 02/05/2025 8:00 AM CDT Virtual Visit [facility] [address] [place] [address] Dahlia Frost, PA-C [address] [place] [address] documented as of this encounter Visit Diagnoses Not on filedocumented in this encounter Additional Health Concerns Assessment Noted Time PHQ-9 Depression Total Score: 0 04/05/20 22 9:42 AM CDT documented as of this encounter Care Teams Produce Wrapper Relationship Specialty Start Date End Date Kell Harding MD [address] [place] [address] PCP - General Internal Medicine - Pediatrics 02/26/23 02/26/24 None PCP - General 02/27/24 03/10/24 Tejal Jules MD [address] [place] [address] PCP - General Family Medicine 03/11/24 Vicente Avalso MD [address] [place] [address] Assigned Heart and Vascular Provider 03/03/22 08/14/24 Dahlia Colindres MD [address] [place] [id number] Ophthalmology 12/28/22 06/10/24 Dahlia Colindres MD [address] [place] [address] Assigned Surgical Provider 01/12/23 07/14/24 Jerson Rodriguez MD [address] [facility] [address] [place] [id number] Internal Medicine 02/14/23 Angel James MD [address] [facility], [address] [place] [address] Resident Internal Medicine - Pediatrics 02/14/23 Loulou Cage Personal Advocate & Liaison (PAL) 02/26/23 01/20/24 Ky Talamantes MD [address] [place], [place] [phone] Neurology 03/04/23 Kell Harding MD [address] [facility] [place] [address] Assigned PCP 03/02/23 09/13/24 Ky Talamantes MD [address] [place], [place] [id number] Assigned Neuroscience Provider 03/16/23 09/13/24 Jazz Linn MD [address] [place] [address] Assigned Endocrinology Provider 08/31/23 Margarette Montemayor NP Assigned Rheumatology Provider 10/17/23 11/14/23 Zina Og MBBS [address] [place] [address] Rheumatology 11/08/23 11/19/23 Veda Diaz PA-C [address] [place] [address] Physician Flash Developer Rheumatology 11/20/23 Veda Diaz PA-C [address] [place] [address] Physician Flash Developer Rheumatology 11/20/23 11/20/23 Veda Diaz PA-C [address] [place] [address] Assigned Rheumatology Provider 12/06/23 Tejal Jules MD [address] [address] Assigned PCP 09/14/24 documented as of this encounter
--- OUTSIDE RECORDS SUMMARY | 2025-02-04 17:31 | XMS_ITS | Encounter Summary ---
Author Organization [facility] Address [address] [place] [address] Care Team Providers Care Mattress Finisher Name Role Phone Vicente Avalos MD Unavailable [phone] Dahlia Colindres MD Unavailable [phone] Dahlia Colindres MD Unavailable [phone] Jerson Rodriguez MD Unavailable +[phone] Angel James MD Unavailable [phone] Kell Harding MD Primary Care Provider + [phone] Loulou Cage Unavailable Unavailable Ky Talamantes MD Unavailable [phone] Kell Harding MD Unavailable [phone] Ky Talamantes MD Unavailable [phone] Jazz Linn MD Unavailable [phone] Margarette Montemayor NP Unavailable +[phone] Zina Og Unavailable Veda Diaz PA-C Unavailable +[phone] Veda Diaz PA-C Unavailable +[phone] Veda Diaz PA-C Unavailable + [phone] None Primary Care Provider Unavailabl e Tejal Jules MD Primary Care Provider [phone] Tejal Jules MD Unavailable Reason for Visit * Reason Onset Date Comments Transfer of Care 10/31/2023 Encounter Details Date Type Department Care Team (Late st Contact Info) Description 10/31/[address] [address] Margarette Montemayor NP Transfer of [...] on file 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 Please review and advise if Pt is okay to transfer care? Pt is scheduled with Veda Diaz for an December appt in [place](Pt did not want to wait until April to get in in [facility]) to establish care/OSIEL. Action Taken: Message routed to: Adult Clinics: Rheumatology p [id number] CAR CLEANER documented in this encounter Plan of Treatment Upcoming Encounters Date Type Department Care Team (Late st Contact Info) Description 02/05/2025 8:00 AM CDT Virtual Visit [facility] Rehabilitation Clinic [address] [place] [phone] Dahlia Frost PAGiC [address] [place] [address] documented as of this encounter Visit Diagnoses Not on filedocumented in this encounter Additional Health Concerns Assessment Noted Time PHQ-9 Depression Total Score: 0 04/05/20 22 9:42 AM CDT documented as of this encounter Care Teams Mattress Finisher Relationship Specialty Start Date End Date Kell Harding MD [address] [place] [address] PCP - General Internal Medicine - Pediatrics 02/26/23 02/26/24 None PCP - General 02/27/24 03/10/24 Tejal Jules MD [address] [place] [address] PCP - General Family Medicine 03/11/24 Vicente Avalos MD [address] [facility] [address] [place] [address] Assigned Heart and Vascular Provider 03/03/22 08/14/24 Dahlia Colindres MD [address] [place] [address] Ophthalmology 12/28/22 06/10/24 Dahlia Colindres MD [address] [place] [address] Assigned Surgical Provider 01/12/23 07/14/24 Jerson Rodriguez MD [address] [facility] [address] [place] [id number] Internal Medicine 02/14/23 Angel James MD [address] [facility], XSX368 [place], [place] [address] Resident Internal Medicine - Pediatrics 02/14/23 Loulou Cage Personal Advocate & Liaison (PAL) 02/26/23 01/20/24 yK Talamantes MD [address] [place] [address] Neurology 03/04/23 Kell Harding MD [address] [facility] [place] [address] Assigned PCP 03/02/23 09/13/24 Ky Talamantes MD [address] [place] [address] Assigned Neuroscience Provider 03/16/23 09/13/24 Jazz Linn MD [address]09 [place] [address] Assigned Endocrinology Provider 08/31/23 Margarette Montemayor HAND KNITTER Assigned Rheumatology Provider 10/17/23 11/14/23 Zina Og MBBS [address]45 [place] [address] Rheumatology 11/08/23 11/19/23 Veda Diaz PA-C [address] [place] [address] Physician Microfilm Machine Operator Rheumatology 11/20/23 Veda Diaz PA-C [address] [place] [address] Physician Microfilm Machine Operator Rheumatology 11/20/23 11/20/23 Veda Diaz PA-C [address] [place] [address] Assigned Rheumatology Provider 12/06/23 Tejal Jules MD [address] [address] Assigned PCP 09/14/24 documented as of this encounter
--- OUTSIDE RECORDS SUMMARY | 2025-02-04 17:31 | XMS_ITS | Encounter Summary ---
Author Organization [facility] Address [address] [place] [address] Care Team Providers Care Marketing [employer] Name Role Phone Vicente Avalos MD Unavailable [phone] Dahlia Colindres MD Unavailable [phone] Dahlia Colindres MD Unavailable [phone] Jerson Rodriguez MD Unavailable +[phone] Angel James MD Unavailable [phone] Kell Harding MD Primary Care Provider + [phone] Loulou Cage Unavailable Unavailable Ky Talamantes MD Unavailable [phone] Kell Harding MD Unavailable [phone] Ky Talamantes MD Unavailable [phone] Jazz Linn MD Unavailable [phone] Margarette Montemayor NP Unavailable +[phone] Zina Og Unavailable Veda Diaz PA-C Unavailable +[phone] Veda Diaz PA-C Unavailable +[phone] Veda Diaz PA-C Unavailable + [phone] None Primary Care Provider Unavailabl e Tejal Jules MD Primary Care Provider [phone] Tejal Jules MD Unavailable [phone] Encounter Details Date Type Department Care Team ([facility] Contact Info) Description 04/04/2023 MyC Medical Advice [facility] [place] [address] [facility] [address] [place] [address] Kell Harding MD [address] [place] [address] Social History Tobacco Use Types Packs/Day Years [...] on file 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 Gender Identity Not on file Sexual Orientation Not on file 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 Not on file Not [...] Description 02/05/2025 8:00 AM CDT Virtual Visit [facility] Physical Medicine and Rehabilitation Clinic [place] [address] [facility] [address] 3rd [place] [phone] Dahlia Frost, PA-C [address] [place] [address] documented as of this encounter Visit Diagnoses Not on filedocumented in this encounter Additional Health Concerns Assessment Noted Time PHQ-9 Depression Total Score: 0 04/05/20 9:42 AM CDT documented as of this encounter Care Teams Marketing Reps Sports [employer] Entertainment Relationship Specialty Start Date End Date Kell Harding MD [address] [place] [address] PCP - General Internal Medicine - Pediatrics 02/26/23 02/26/24 None PCP - General 02/27/24 03/10/24 Tejal Jules MD [address] [place] [address] PCP - General Family Medicine 03/11/24 Vicente Avalos MD [address] [place] [address] Assigned Heart and Vascular Provider 03/03/22 08/14/24 Dahlia Colindres MD [address] [place] [address] Ophthalmology 12/28/22 06/10/24 Dahlia Colindres MD [address] [place] [address] Assigned Surgical Provider 01/12/23 07/14/24 Jerson Rodriguez MD [address] [facility] [place] [address] Internal Medicine 02/14/23 Angel James MD [address] [facility], IMT142 [place] [address] Resident Internal Medicine - Pediatrics 02/14/23 Loulou Cage Personal Advocate & Liaison (PAL) 02/26/23 01/20/24 Ky Talamantes MD [address] [place], [place] [id number] Neurology 03/04/23 [place] [address] [place] [address] [place] [address] Assigned PCP 03/02/23 09/13/24 Ky Talamantes MD [address] [place], [place] [address] Assigned Neuroscience Provider 03/16/23 09/13/24 Jazz Linn MD 909 [place] [address] Assigned Endocrinology Provider 08/31/23 Margarette Montemayor, MED CARE MANAGER Assigned Rheumatology Provider 10/17/23 11/14/23 Zina gO MBBS [address] [place] [address] Rheumatology 11/08/23 11/19/23 Veda Diaz PA-C [address] [place] [address] Physician Slope Runner Rheumatology 11/20/23 Veda Diaz PA-C [address] [place] [address] Physician Slope Runner Rheumatology 11/20/23 11/20/23 Veda Diaz PA-C [address] [place] [address] Assigned Rheumatology Provider 12/06/23 Tejal Jules MD [address] [facility] 100 [place] [address] Assigned PCP 09/14/24 documented as of this encounter
--- OUTSIDE RECORDS SUMMARY | 2025-02-04 17:31 | XMS_ITS | Clinical Summary ---
Author Organization [facility] Address [address] [place] [address] Care Team Providers Care Vacuum Pan Operator Name Role Phone None, Md Primary Care Provider [facility] e Clinic, No Primary Unavailable Unavailable [...] CDT Respiratory Rate 16 10/16/2023 1:48 PM ELECTRONIC WARFARE OPERATOR Oxygen Saturation 96% 10/16/2023 1:48 PM ELECTRONIC WARFARE OPERATOR Inhaled Oxygen Concentration - - Weight 65.4 [...] patient's age to complete this topic Insurance [facility] Care Teams Vacuum Pan Operator Relationship Specialty Start Date End Date None, PCP - General Family Medicine - 08/07/23 Clinic, No Primary PCP - Primary Care Clinic 08/07/23
--- OUTSIDE RECORDS SUMMARY | 2025-02-04 17:31 | XMS_ITS | Referral Summary ---
Author Organization [facility] Address [address] [place] [address] Care Team Providers Care Paralegal Specialist Name Role Phone None, Md Primary Care Provider [facility] e Clinic, No Primary Unavailable Unavailable Allergies [...] CDT Respiratory Rate 16 10/16/2023 1:48 PM PLUNGER SHOVEL OPERATOR Oxygen Saturation 96% 10/16/2023 1:48 PM PLUNGER SHOVEL OPERATOR Inhaled Oxygen Concentration - - Weight 65.4 kg (144 lb 3.2 oz) 07/09/2024 1:04 P M CDT Height 170.2 cm (5' 7) 01/27/2024 4:21 PM CDT Body Mass Index 22.58 01/27/2024 4:21 PM CDT Plan of Treatment Not on file Insurance [place] [id number] [place] OPEN ACCESS/CHOICE [facility] Care Teams Paralegal Specialist Relationship Specialty Start Date End Date None, PCP - General Family Medicine - 08/07/23 Clinic, No Primary PCP - Primary Care Clinic 08/07/23
--- OUTSIDE RECORDS SUMMARY | 2025-02-04 17:31 | XMS_ITS | Encounter Summary ---
Author Organization [facility] Address [address] [place] [address] Care Team Providers Care Affiliate Marketing Manager Name Role Phone Vicente Avalos MD Unavailable [phone] Dahlia Colindres MD Unavailable [phone] Dahlia Colindres MD Unavailable [phone] Jerson Rodriguez MD Unavailable [phone] Angel James MD Unavailable [phone] Kell Harding MD Primary Care Provider + [phone] Loulou Cage Unavailable Unavailable Ky Talamantes MD Unavailable [phone] Kell Harding MD Unavailable [phone] Ky Talamantes MD Unavailable [phone] Jazz Linn MD Unavailable [phone] Margarette Montemayor NP Unavailable +[phone] Zina Og Unavailable Veda Diaz PA-C Unavailable +[phone] Veda Diaz PA-C Unavailable +[phone] Veda Diaz PA-C Unavailable + [phone] None Primary Care Provider Unavailabl e Tejal Jules MD Primary Care Provider [phone] Tejal Jules MD Unavailable [phone] Encounter Details Date Type Department Care Team (Late Contact Info) Description 11/02/2023 MyC Medical Advice [facility]ology [facility] [address] [address] Jazz Linn MD [address] [place] [address] Social History Tobacco Use Types Packs/Day [...] on file 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 Gender Identity Not on file Sexual Orientation Not on file 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 Not on f ile documented as of this encounter Plan of Treatment Upcoming Encounters Date Type Department Care Team (Late Contact Info) Description 02/05/2025 8:00 AM CDT Virtual Visit [facility] [address] [address] Dahlia Frost, PA-C [address] [place] [address] documented as of this encounter Visit Diagnoses Not on filedocumented in this encounter Additional Health Concerns Assessment Noted Time PHQ-9 Depression Total Score: 0 04/05/20 9:42 AM CDT documented as of this encounter Care Teams Affiliate Marketing Manager Relationship Specialty Start Date End Date Kell Harding MD [address] [facility] [place] [address] PCP - General Internal Medicine - Pediatrics 02/26/23 02/26/24 None PCP - General 02/27/24 03/10/24 Tejal Jules MD [address] [facility] 100 [place] [address] PCP - General Family Medicine 03/11/24 Vicente Avalos MD [address] [place] [address] Assigned Heart and Vascular Provider 03/03/22 08/14/24 Dahlia Colindres MD [address] [place] [address] Ophthalmology 12/28/22 06/10/24 Dahlia Colindres MD [address] [place] [address] Assigned Surgical Provider 01/12/23 07/14/24 Jerson Rodriguez MD [address] [place] [place] [id number] Internal Medicine 02/14/23 Angel James MD [address] [place] [address], [address] [place] [id number] Resident Internal Medicine - Pediatrics 02/14/23 Loulou Cage Personal Advocate & Liaison (PAL) 02/26/23 01/20/24 Ky Talamantes MD [address] [place] [address] Neurology 03/04/23 Kell Harding MD [address] [place] [address] Assigned PCP 03/02/23 09/13/24 Ky Talamantes MD [address] [place] [address] Assigned Neuroscience Provider 03/16/23 09/13/24 Jazz Linn MD 909 [place] [address] Assigned Endocrinology Provider 08/31/23 Margarette Montemayor NP Assigned Rheumatology Provider 10/17/23 11/14/23 Zina Og MBBS [facility] [place] [address] Rheumatology 11/08/23 11/19/23 Veda Diaz PA-C [address] [place], [place] [address] Physician Snout Puller Rheumatology 11/20/23 Veda Diaz PA-C [address] [place] [address] Physician Snout Puller Rheumatology 11/20/23 11/20/23 Veda Diaz PA-C [address] [place] [address] Assigned Rheumatology Provider 12/06/23 Tejal Jules MD [address] [address] Assigned PCP 09/14/24 documented as of this encounter
--- OUTSIDE RECORDS SUMMARY | 2025-02-04 17:31 | XMS_ITS | Encounter Summary ---
Author Organization [facility] Address [address] [place] [address] Care Team Providers Care Quarry Plug And Feather Driller Name Role Phone Vicente Avalos MD Unavailable [phone] Dahlia Colindres MD Unavailable [phone] Dahlia Colindres MD Unavailable [phone] Jerson Rodriguez MD Unavailable [phone] Angel James MD Unavailable [phone] Kell Harding MD Primary Care Provider [phone] Loulou Cage Unavailable Unavailable Ky Talamantes MD Unavailable +[phone] Kell Harding MD Unavailable [phone] Ky Talamantes MD Unavailable [phone] Jazz Linn MD Unavailable [phone] Veda Diaz PA-C Unavailable +[phone] Veda Diaz PA-C Unavailable +[phone] Veda Diaz PA-C Unavailable +[phone] None Primary Care Provider UnavailTejal Swift MD Primary Care Provider Tejal Jules MD Unavailable [phone] Encounter Details Date Type Department Care Team (Late st Contact Info) Description 11/20/2023 MyC Medical Advice [facility] [address] [place] [address] Monica Sarabia, DOT COMPLIANCE SPECIALIST Social History Tobacco Use Types Packs/Day Years [...] on file 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 Gender Identity Not on file Sexual Orientation Not on file 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 Not on f ile documented as of this encounter Plan of Treatment Upcoming Encounters Date Type Department Care Team (Late st Contact Info) Description 02/05/2025 8:00 AM CDT Virtual Visit [facility] Physical Medicine and Rehabilitation Clinic [address] [address] Dahlia Frost, PA-C [address] [place] [address] documented as of this encounter Visit Diagnoses Not on filedocumented in this encounter Additional Health Concerns Assessment Noted Time PHQ-9 Depression Total Score: 0 04/05/20 22 9:42 AM CDT documented as of this encounter Care Teams Quarry Plug And Feather Driller Relationship Specialty Start Date End Date Kell Harding MD [address] [facility] [place] [address] PCP - General Internal Medicine - Pediatrics 02/26/23 02/26/24 None PCP - General 02/27/24 03/10/24 Tejal Jules MD [address] [place] [address] PCP - General Family Medicine 03/11/24 Vicente Avalos MD [address] [place] [address] Assigned Heart and Vascular Provider 03/03/22 08/14/24 Dahlia Colindres MD [address] [place] [address] Ophthalmology 12/28/22 06/10/24 Dahlia Colindres MD [address] [place], [place] [address] Assigned Surgical Provider 01/12/23 07/14/24 Jerson Rodriguez MD [address] [place] [address] [place] [id number] Internal Medicine 02/14/23 Angel James MD [address] [place] [address], MCC856 [place], [place] [address] Resident Internal Medicine - Pediatrics 02/14/23 Loulou Cage Personal Advocate & Liaison (PAL) 02/26/23 01/20/24 Ky Talamantes MD [address] [place] [address] Neurology 03/04/23 Kell Harding MD [address] [facility] [place] [address] Assigned PCP 03/02/23 09/13/24 Ky Talamantes MD [address] [place] [address] Assigned Neuroscience Provider 03/16/23 09/13/24 Jazz Linn MD 909 [place] [address] Assigned Endocrinology Provider 08/31/23 Veda Diaz PA-C [address] [place] [address] Physician Collet Driller Rheumatology 11/20/23 Veda Diaz PA-C [address] [place] [address] Physician Collet Driller Rheumatology 11/20/23 11/20/23 Veda Diaz PA-C [address] [place] [address] Assigned Rheumatology Provider 12/06/23 Tejal Jules MD [address] [facility] 100 [place] [address] Assigned PCP 09/14/24 documented as of this encounter
--- OUTSIDE RECORDS SUMMARY | 2025-02-04 17:31 | XMS_ITS | Encounter Summary ---
Author Organization [facility] Address [address] [place] [address] Care Team Providers Care Poultry Picking Machine Tender Name Role Phone Vicente Avalos MD Unavailable [phone] Dahlia Colindres MD Unavailable [phone] Dahlia Colindres MD Unavailable [phone] Jerson Rodriguez MD Unavailable [phone] Angel James MD Unavailable [phone] Kell Harding MD Primary Care Provider + [phone] Loulou Cage Unavailable Unavailable Ky Talamantes MD Unavailable [phone] Kell Harding MD Unavailable [phone] Ky Talamantes MD Unavailable [phone] Jazz Linn MD Unavailable [phone] Margarette Montemayor NP Unavailable [phone] Zina Og Unavailable Veda Diaz PA-C Unavailable +[phone] Veda Diaz PA-C Unavailable +[phone] Veda Diaz PA-C Unavailable + [phone] None Primary Care Provider Unavailabl e Tejal Jules MD Primary Care Provider [phone] Tejal Jules MD Unavailable [phone] Encounter Details Date Type Department Care Team (Late Contact Info) Description 09/03/2023 MyC Medical Advice [facility] Endocrinology Clinic [address] [place] [address] Jazz Linn MD [address] [place] [address] Social History Tobacco Use Types Packs/Day [...] file 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 Gender Identity Not on file Sexual [...] Description 02/05/2025 8:00 AM CDT Virtual Visit [facility] Physical Medicine and Rehabilitation Clinic [address] 3rd [place] [address] Dahlia Frost PA-Russell [address] [place] [address] 650615 documented as of this encounter Visit Diagnoses Not on filedocumented in this encounter Additional Health Concerns Assessment Noted Time PHQ-9 Depression Total Score: 0 04/05/20 9:42 AM CDT documented as of this encounter Care Teams Poultry Picking Machine Tender Relationship Specialty Start Date End Date Kell Harding MD [address] [facility] [place] [address] PCP - General Internal Medicine - Pediatrics 02/26/23 02/26/24 None PCP - General 02/27/24 03/10/24 Tejal Jules MD [address] [facility] 100 [place] [address] PCP - General Family Medicine 03/11/24 Vicente Avalos MD [address] [place] [address] Assigned Heart and Vascular Provider 03/03/22 08/14/24 Dahlia Colindres MD [address] [place] [address] Ophthalmology 12/28/22 06/10/24 Dahlia Colindres MD [address] [place], [place] [address] Assigned Surgical Provider 01/12/23 07/14/24 Jerson Rodriguez MD [facility] [place] [address] Internal Medicine 02/14/23 Angel James MD [address] [facility], ORO453 [place], [place] [address] Resident Internal Medicine - Pediatrics 02/14/23 Loulou Cage Personal Advocate & Liaison (PAL) 02/26/23 01/20/24 Ky Talamantes MD [address] [place], [place] [address] Neurology 03/04/23 Kell Harding MD [address]305 [place] [address] Assigned PCP 03/02/23 09/13/24 Ky Talamantes MD [address] [place], [place] [address] Assigned Neuroscience Provider 03/16/23 09/13/24 Jazz Linn MD 909 [place] [address] Assigned Endocrinology Provider 08/31/23 Margarette Montemayor, ELECTRIC KNIFE OPERATOR Assigned Rheumatology Provider 10/17/23 11/14/23 Zina Og MBBS [address] [place], [place] [address] Rheumatology 11/08/23 11/19/23 Veda Diaz PA-C [address] [place], [place] [address] Physician Flat Knitter Helper Rheumatology 11/20/23 Veda Diaz PA-C [address] [place] [address] Physician Flat Knitter Helper Rheumatology 11/20/23 11/20/23 Veda Diaz PA-C [address] [place] [address] Assigned Rheumatology Provider 12/06/23 Tejal Jules MD [address] [address] Assigned PCP 09/14/24 documented as of this encounter
--- OUTSIDE RECORDS SUMMARY | 2025-02-04 17:32 | XMS_ITS | Encounter Summary ---
Author Organization [facility] Address [address] [place] [address] Care Team Providers Care Kiln Firer Name Role Phone No Ref-Primary, Physician Primary Care Provider Vicente Avalos MD Unavailable [phone] Kory Garcia MD Unavailable Dahlia Colindres MD Unavailable [phone] Dahlia Colindres MD Unavailable [phone] Jerson Rodriguez MD Unavailable Angel James MD Unavailable [phone] Kell Harding MD Primary Care Provider + [phone] Loulou Cage Unavailable Unavailable Ky Talamantes MD Unavailable [phone] Kell Harding MD Unavailable [phone] Ky Talamantes MD Unavailable [phone] Jazz Linn MD Unavailable [phone] Margarette Montemayor NP Unavailable Zina Og Unavailable Veda Diaz PA-C Unavailable Veda Diaz PA-C Unavailable Rober Diazlandy Peacock PA-C Unavailable + [phone] None Primary Care Provider UnavailTejal Swift MD Primary Care Provider + [phone] Tejal Jules MD Unavailable +[phone] Reason for Visit * Reason Onset Date Comments Appointment 02/19/2023 Encounter Details Date Type Department Care Team (Late st Contact Info) Description 02/19/[address] 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 Physical Medicine and Rehabilitation Clinic [address] [phone] Dahlia Frost, PA-C [address] [place] [address] documented as of this encounter Visit Diagnoses Not on filedocumented in this encounter Additional Health Concerns Assessment Noted Time PHQ-9 Depression Total Score: 0 04/05/20 22 9:42 AM CDT documented as of this encounter Care Teams Kiln Firer Relationship Specialty Start Date End Date No Ref-Primary, Physician PCP - General 03/02/22 02/25/23 Kell Harding MD [address] [place], [place] [phone] PCP - General Internal Medicine - Pediatrics 02/26/23 02/26/24 None PCP - General 02/27/24 03/10/24 Tejal Jules MD [address] [facility] 100 [place] [address] PCP - General Family Medicine 03/11/24 Vicente Avalos MD [address] [facility] [address] [place], [place] 9[address] Assigned Heart and Vascular Provider 03/03/22 08/14/24 Kory Garcia MD [address] [place], [place] [address] Assigned PCP 07/14/22 03/01/23 Dahlia Colindres MD [address] [place] [address] Ophthalmology 12/28/22 06/10/24 Dahlia Colindres MD [address] [place], [place] [phone] Assigned Surgical Provider 01/12/23 07/14/24 Jerson Rodriguez MD [facility] [address] [place], [place] [id number] Internal Medicine 02/14/23 Angel James MD [address] [place] [address], [address] [address] Resident Internal Medicine - Pediatrics 02/14/23 Loulou Cage Personal Advocate & Liaison (PAL) 02/26/23 01/20/24 Ky Talamantes MD [address] [place] [address] Neurology 03/04/23 Kell Harding MD [address] [place] [address] Assigned PCP 03/02/23 09/13/24 Ky Talamantes MD [address] [place] [address] Assigned Neuroscience Provider 03/16/23 09/13/24 Jazz Linn MD [address] [place] [phone] Assigned Endocrinology Provider 08/31/23 Margarette Montemayor NP Assigned Rheumatology Provider 10/17/23 11/14/23 Zina Og MBBS [address] [place] [address] Rheumatology 11/08/23 11/19/23 Veda Diaz PA-C [address] [place] [address] Physician Health Concierge Rheumatology 11/20/23 Veda Diaz PA-C [address] [place] [address] Physician Health Concierge Rheumatology 11/20/23 11/20/23 Veda Diaz PA-C [address] [place] [address] Assigned Rheumatology Provider 12/06/23 Tejal Jules MD [address] [facility] [address] [place] [address] Assigned PCP 09/14/24 documented as of this encounter
--- OUTSIDE RECORDS SUMMARY | 2025-02-04 17:32 | XMS_ITS | Encounter Summary ---
Author Organization [facility] Address [address] [place] [address] Care Team Providers Care Lead Project Engineer Name Role Phone No Ref-Primary, Physician Primary Care Provider Vicente Avalos MD Unavailable [phone] Kory Garcia MD Unavailable Dahlia Colindres MD Unavailable [phone] Dahlia Colindres MD Unavailable [phone] Jerson Rodriguez MD Unavailable [phone] Angel James MD Unavailable [phone] Kell Harding MD Primary Care Provider + [phone] Loulou Cage Unavailable Unavailable Ky Talamantes MD Unavailable Kell Harding MD Unavailable [phone] Ky Talamantes MD Unavailable [phone] Jazz Linn MD Unavailable [phone] Margarette Montemayor NP Unavailable Zina Og Unavailable Veda Diaz PA-C Unavailable Veda Diaz PA-C Unavailable Rober Diazlandy Peacock PA-C Unavailable + [phone] Primary Care Provider Unavailritesh e Tejal Jules MD Primary Care Provider + [phone] Tejal Jules MD Unavailable [phone] Reason for Visit * Reason Onset Date Comments Call Back 02/19/2023 Encounter Details Date Type Department Care Team (Late st Contact Info) Description 02/19/2023 Telephone [facility] Endocrinology Clinic [address] 3[address] [place] [address] None Call Back Social History [...] on file 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 The scheduled first available endocrine appointment timeframe is acceptable. E- consult may be an option for answer to specific question by the referring provider. E-consults generally have a responsewithin 3 days. Saida Malhotra MD * Telephone Encounter - Dee Renteria - 02/19/2023 1:03 PM CDT [facility] Call Center Phone Message May a detailed [...] Description 02/05/2025 8:00 AM CDT Virtual Visit [facility] Physical Medicine and Rehabilitation Clinic [address] [place] [address] Dahlia Frost PAYolis [address] [place] [phone] documented as of this encounter Visit Diagnoses Not on filedocumented in this encounter Additional Health Concerns Assessment Noted Time PHQ-9 Depression Total Score: 0 04/05/20 9:42 AM CDT documented as of this encounter Care Teams Lead Project Engineer Relationship Specialty Start Date End Date No Ref-Primary, Physician PCP - General 03/02/22 02/25/23 Kell Harding MD [address] [facility] [place] [address] PCP - General Internal Medicine - Pediatrics 02/26/23 02/26/24 None PCP - General 02/27/24 03/10/24 Tejal Jules MD [address] [facility] 100 [place] [address] PCP - General Family Medicine 03/11/24 Vicente Avalos MD [address] [facility] [address] [place] [address] Assigned Heart and Vascular Provider 03/03/22 08/14/24 Kory Garcia MD [address] [place] [address] Assigned PCP 07/14/22 03/01/23 Dahlia Colindres MD [address] [place] [address] Ophthalmology 12/28/22 06/10/24 Dahlia Colindres MD [address] [place], [place] [address] Assigned Surgical Provider 01/12/23 07/14/24 Jerson Rodriguez MD [address] [place] [address] [place] [address] Internal Medicine 02/14/23 Angel James MD [address] [place] [address], [id number] [place] [address] Resident Internal Medicine - Pediatrics 02/14/23 Loulou Cage Personal Advocate & Liaison (PAL) 02/26/23 01/20/24 Ky Talamantes MD [address] [place] [address] Neurology 03/04/23 Kell Harding MD [address] [place] [address] Assigned PCP 03/02/23 09/13/24 Ky Talamantes MD [address] [place] [address] Assigned Neuroscience Provider 03/16/23 09/13/24 Jazz Linn MD [address] [place] [phone] Assigned Endocrinology Provider 08/31/23 Margarette Montemayor NP Assigned Rheumatology Provider 10/17/23 11/14/23 Zina Og MBBS [address] [place] [address] Rheumatology 11/08/23 11/19/23 Veda Diaz PA-C [address] [place] [address] Physician Professor Of Economics Rheumatology 11/20/23 Veda Diaz PA-C [address] [place] [address] Physician Professor Of Economics Rheumatology 11/20/23 11/20/23 Veda Diaz PA-C [address] [place] [address] Assigned Rheumatology Provider 12/06/23 Tejal Jules MD [address] [address] Assigned PCP 09/14/24 documented as of this encounter
--- OUTSIDE RECORDS SUMMARY | 2025-02-04 17:32 | XMS_ITS | Encounter Summary ---
Author Organization [facility] Address [address] [place] [address] Care Team Providers Care Pharmacist Critical Care Name Role Phone Steff Hurtado DNP, SEAWEED HARVESTER, CATTLE TESTER Primary Care Pro vider Encounter Details Date [...] COVID19 10/03/2023 10/03/2023 10/04/2023 12:2 7 AM EQUIPMENT TECH documented as of this encounter Care Teams Pharmacist Critical Care Relationship Specialty Start Date End Date Steff Hurtado DNP, SEAWEED HARVESTER, CATTLE TESTER [address] [place] [address] PCP - General Nurse Practitioner 06/15/23 documented as of this encounter
--- OUTSIDE RECORDS SUMMARY | 2025-02-04 17:33 | XMS_ITS | Encounter Summary ---
Author Organization [facility] Address [address] [place] [address] Care Team Providers Care Transportation Modeler Name Role Phone No Ref-Primary, Physician Primary Care Provider Vicente Avalos MD Unavailable [phone] Gianna Pierre PA-C Unavailable Kory Garcia MD Unavailable Dahlia Colindres MD Unavailable [phone] Dahlia Colindres MD Unavailable [phone] Jerson Rodriguez MD Unavailable [phone] Angel James MD Unavailable [phone] Angel James MD Unavailable [phone] Kell Harding MD Primary Care Provider + [phone] Loulou Cage Unavailable Unavailable Ky Talamantes MD Unavailable [phone] Kell Harding MD Unavailable [phone] Ky Talamantes MD Unavailable [phone] Jazz Linn MD Unavailable [phone] Margarette Montemayor NP Unavailable [phone] Zina Og Unavailable Veda Diaz PA-C Unavailable Veda Diaz PA-C Unavailable [phone] Veda Diaz PA-C Unavailable None Primary Care Provider UnavailTejal Swift MD Primary Care Provider + [phone] Tejal Jules MD Unavailable [phone] Encounter Details Date Type Department Care Team (Late Contact Info) Description 04/25/2022 MyC Medical Advice Initial Department [facility] Social History Tobacco Use Types Packs/Day Years Used Date Smoking Tobacco: Never Smokeless Tobacco: Never Alcohol Use Standard Drinks/Week Comments Yes 0 (1 standard drink = 0.6 oz pur e alcohol) rare PHQ-2 Answer Date Recorded PHQ-2 Score 0 04/26/2022 Comments No Sex and Gender Information Value Date Recorded Sex Assigned at Not on file 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 Gender Identity Not on file Sexual Orientation Not on file 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 file [...] Description 02/05/2025 8:00 AM CDT Virtual Visit [facility] Physical Medicine and Rehabilitation Clinic [address] [place] [address] Dahlia Frost PA-C [address] [place] [address] documented as of this encounter Visit Diagnoses Not on filedocumented in this encounter Additional Health Concerns Assessment Noted Time PHQ-9 Depression Total Score: 0 04/05/20 22 9:42 AM CDT documented as of this encounter Care Teams Transportation Modeler Relationship Specialty Start Date End Date No Ref-Primary, Physician PCP - General 03/02/22 02/25/23 Kell Harding MD [address] [facility] [place] [address] PCP - General Internal Medicine - Pediatrics 02/26/23 02/26/24 None PCP - General 02/27/24 03/10/24 Tejal Jules MD [address] [place], [place] [address] PCP - General Family Medicine 03/11/24 Vicente Avalos MD [address] [facility] [address] [place] [address] Assigned Heart and Vascular Provider 03/03/22 08/14/24 Gianna Pierre PA-C [address] [place], [place] 39[address] Assigned PCP 04/14/22 07/13/22 Kory Garcia MD [address] [place], [place] [address] Assigned PCP 07/14/22 03/01/23 aDhlia Colindres MD [address] [place], [place] [address] Ophthalmology 12/28/22 06/10/24 Dahlia Colindres MD [address] [place] [address] Assigned Surgical Provider 01/12/23 07/14/24 Jerson Rodriguez MD [address] [place] [address] [place] [id number] Internal Medicine 02/14/23 Angel James MD [address] [place] [address], [place] [phone] Resident Internal Medicine - Pediatrics 02/14/23 02/14/23 Angel James MD [address] [place] [address], [place] [phone] Resident Internal Medicine - Pediatrics 02/14/23 Loulou Cage Personal Advocate & Liaison (PAL) 02/26/23 01/20/24 Ky Talamantes MD [address] [place], [place] [phone] Neurology 03/04/23 Kell Harding MD [address] [place] [address] [place] [address] Assigned PCP 03/02/23 09/13/24 Ky Talamantes MD [address] [place] [address] Assigned Neuroscience Provider 03/16/23 09/13/24 Jazz Linn MD [address] [place] [address] Assigned Endocrinology Provider 08/31/23 Margarette Montemayor NP Assigned Rheumatology Provider 10/17/23 11/14/23 Zina Og MBBS [address] [place] [address] Rheumatology 11/08/23 11/19/23 Veda Diaz PA-C [address] [place] [address] Physician Oil Sales And Service Rep Rheumatology 11/20/23 Veda Diaz PA-C [address] [place] [address] Physician Oil Sales And Service Rep Rheumatology 11/20/23 11/20/23 Veda Diaz PA-C [address] [place] [address] Assigned Rheumatology Provider 12/06/23 Tejal Jules MD [address] [address] Assigned PCP 09/14/24 documented as of this encounter
--- OUTSIDE RECORDS SUMMARY | 2025-02-04 17:33 | XMS_ITS | Encounter Summary ---
Author Organization [facility] Address [address] [place] [address] Care Team Providers Care Pharmacy Informaticist Name Role Phone Vicente Avalos MD Unavailable [phone] Dahlia Colindres MD Unavailable [phone] Dahlia Colindres MD Unavailable [phone] Jerson Rodriguez MD Unavailable [phone] Angel James MD Unavailable [phone] Kell Harding MD Primary Care Provider + [phone] Loulou Cage Unavailable Unavailable Ky Talamantes MD Unavailable [phone] Kell Harding MD Unavailable [phone] Ky Talamantes MD Unavailable [phone] Jazz Linn MD Unavailable [phone] Veda Diaz PA-C Unavailable [phone] Veda Diaz PA-C Unavailable + [phone] None Primary Care Provider Unavailritesh e Tejal Jules MD Primary Care Provider + [phone] Tejal Jules MD Unavailable [phone] Encounter Details Date Type Department Care Team (Late st Contact Info) Description 11/28/2023 MyC Medical Advice [facility] Insurance Verification Lupis Alves Social History Tobacco [...] on file 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 Gender Identity Not on file Sexual Orientation Not on file 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 file Not on f ile documented as of this encounter Plan of Treatment Upcoming Encounters Date Type Department Care Team (Late st Contact Info) Description 02/05/2025 8:00 AM CDT Virtual Visit [facility] Physical Medicine and Rehabilitation Clinic [address] [phone] Dahlia Frost PAYolis [address] [place] [address] documented as of this encounter Visit Diagnoses Not on filedocumented in this encounter Additional Health Concerns Assessment Noted Time PHQ-9 Depression Total Score: 0 04/05/20 22 9:42 AM CDT documented as of this encounter Care Teams Pharmacy Informaticist Relationship Specialty Start Date End Date Kell Harding MD [address] [place] [address] PCP - General Internal Medicine - Pediatrics 02/26/23 02/26/24 None PCP - General 02/27/24 03/10/24 Tejal Jules MD [address] [place] [address] PCP - General Family Medicine 03/11/24 Vicente Avalos MD [address] [place], [place] [address] Assigned Heart and Vascular Provider 03/03/22 08/14/24 Dahlia Colindres MD [address] [place] [address] Ophthalmology 12/28/22 06/10/24 Dahlia Colindres MD [address] [place], [place] [address] Assigned Surgical Provider 01/12/23 07/14/24 Jerson Rodriguez MD [address] [place] [address] [address] [place] [id number] Internal Medicine 02/14/23 Angel James MD [address] [place] [address], [id number] [place] [id number] Resident Internal Medicine - Pediatrics 02/14/23 Loulou Cage Personal Advocate & Liaison (PAL) 02/26/23 01/20/24 Ky Talamantes MD [address] [place] [address] Neurology 03/04/23 Kell Harding MD [address] [facility] [address] Assigned PCP 03/02/23 09/13/24 Ky Talamantes MD [address] [place] [address] Assigned Neuroscience Provider 03/16/23 09/13/24 Jazz Linn MD [address] [place] [phone] Assigned Endocrinology Provider 08/31/23 Veda Diaz PA-C [address] [place] [address] Physician Software Testing Specialist Rheumatology 11/20/23 Veda Diaz PA-C [address] [place] [address] Assigned Rheumatology Provider 12/06/23 Tejal Jules MD [address] [facility] 100 [place] [address] Assigned PCP 09/14/24 documented as of this encounter
--- OUTSIDE RECORDS SUMMARY | 2025-02-04 17:33 | XMS_ITS | Clinical Summary ---
Author Organization [facility] Address [address] [place] [address] Care Team Providers Care Steam Box Tender Name Role Phone Alejandra Yu M.D. Primary Care Provider [phone] Source Comments Patient records contain information from all sites at [facility]. For routine questions regarding patient records, call [phone] during business hours, M-F 8:00 AM - 5:00 PM Central Time. Record requests for emergency care only can be directed to [phone] at any time.[facility] Allergies No known active allergies Medications levothyroxine (SYNTHROID, LEVOTHROID) 50 mcg tablet Take 125 mcg by mouth. 06/21/2023 Active cholecalciferol (VITAMIN D3) 1,250 mcg (50,000 Unit) capsule Take 50,000 Units by mouth over 168 hr. 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 Health Maintenance [...] your living situation today? [facility] to live 02/27/2023 Comments No Sex [...] CDT Oxygen Saturation 100% 11/12/2023 7:57 AM PAYROLL TECHNICIAN Inhaled Oxygen Concentration - - Weight 67.4 kg (148 lb 9.4 oz) 04/02/2024 3:40 P M CDT Height 170 cm (5' 6.93) 10/24/2023 11:24 AM PAYROLL TECHNICIAN Body Mass Index 23.32 10/24/2023 11:24 AM PAYROLL TECHNICIAN Plan of Treatment Health Maintenance Due Date [...] - Sensitive) (04/12/2023 10:44 AM CDT) Pathologist [facility] TSH, Sensitive 1.7 0.3 - 4.2 mIU/L 04/12/2023 11:44 AM CDT DTL Blood (Blood, Venous) 04/12/2023 10:44 AM CDT 04/12/2023 11:20 AM CDT Veronique Suarez M.D. LAB BLOOD ADD -ON Final Result [facility] [address] [place] [address], [place] DTL [facility] [address] [place] [address] * EXT ThinPrep w/HPV Co-Test Screen (04/24/2022) Pathologist [facility] EXT ThinPrep w/HPV Co-Test Screen Normal - See Scanned Report for Details Normal - See Scanned Report for Details, HIM[facility] - Report Received and Scanned Thin Prep Vial (Cervix/Endocervi x) 04/24/2022 us Historical Provider LAB PAP PATHDX ORDERABLES Fi nal Result from Last 3 Months or Most Recently Relevant to Health Maintenance Insurance [employer] [place] [id number] Care Teams Steam Box Tender Relationship Specialty Start Date End Date Alejandra Yu M.D. [address] [place] [phone] PCP - General Family Medicine 02/08/23
--- OUTSIDE RECORDS SUMMARY | 2025-02-04 17:33 | XMS_ITS | Encounter Summary ---
Author Organization [facility] Address [address] [place] [address] Care Team Providers Care Graves Registration Specialist Name Role Phone Vicente Avalos MD Unavailable [phone] Dahlia Colindres MD Unavailable [phone] Dahlia Colindres MD Unavailable [phone] Jerson Rodriguez MD Unavailable [phone] Angel James MD Unavailable [phone] Kell Harding MD Primary Care Provider + [phone] Loulou Cage Unavailable Unavailable Ky Talamantes MD Unavailable Kell Harding MD Unavailable [phone] Ky Talamantes MD Unavailable [phone] Jazz Linn MD Unavailable [phone] Veda Diaz PA-C Unavailable [phone] Veda Diaz PA-C Unavailable + [phone] None Primary Care Provider Unavailritesh e Tejal Jules MD Primary Care Provider + [phone] Tejal Jules MD Unavailable [phone] Encounter Details Date Type Department Care Team (Late st Contact Info) Description 01/07/2024 MyC Medical Advice [facility] [address] [place] [phone] Loulou Cage Social History Tobacco Use Types [...] on file 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 Gender Identity Not on file Sexual Orientation Not on file 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 Not on file Not on f ile documented as of this encounter Plan of Treatment Upcoming Encounters Date Type Department Care Team (Late st Contact Info) Description 02/05/2025 8:00 AM CDT Virtual Visit [facility] [address] [address] Dahlia Frost PA-C [address] [place] [address] documented as of this encounter Visit Diagnoses Not on filedocumented in this encounter Additional Health Concerns Assessment Noted Time PHQ-9 Depression Total Score: 0 04/05/20 22 9:42 AM CDT documented as of this encounter Care Teams Graves Registration Specialist Relationship Specialty Start Date End Date Kell Harding MD [address] [place] [address] [place] TRIVEDI [address] PCP - General Internal Medicine - Pediatrics 02/26/23 02/26/24 None PCP - General 02/27/24 03/10/24 Tejal Jules MD [address] [place] [address] PCP - General Family Medicine 03/11/24 Vicente Avalos MD [address] [place] [address] Assigned Heart and Vascular Provider 03/03/22 08/14/24 Dahlia Colindres MD [address] [place] [id number] Ophthalmology 12/28/22 06/10/24 Dahlia Colindres MD [address] [place], [place] [id number] Assigned Surgical Provider 01/12/23 07/14/24 Jerson Rodriguez MD [address] [place] [address] V[place]KATES[place] RANKIN [address] Internal Medicine 02/14/23 Angel James MD [address] [place] [address], [address] [place], [place] [address] Resident Internal Medicine - Pediatrics 02/14/23 Loulou Cage Personal Advocate & Liaison (PAL) 02/26/23 01/20/24 Ky Talamantes MD [address] [place] ASTUDILLO [id number] Neurology 03/04/23 Kell Harding MD [address] [place] [address] Assigned PCP 03/02/23 09/13/24 Ky Talamantes MD [address] [place] [address] Assigned Neuroscience Provider 03/16/23 09/13/24 Jazz Linn MD [address] [place] [phone] Assigned Endocrinology Provider 08/31/23 Veda Diaz PA-C [address] [place] [address] Physician Bladder Changer Rheumatology 11/20/23 Veda Diaz PA-C [address] [place] [address] Assigned Rheumatology Provider 12/06/23 Tejal Jules MD [address] [facility] [address] [place] [address] Assigned PCP 09/14/24 documented as of this encounter
--- OUTSIDE RECORDS SUMMARY | 2025-02-04 17:33 | XMS_ITS | Encounter Summary ---
Author Organization [facility] Address [address] [place] [address] Care Team Providers Care Hospital Superintendent Name Role Phone No Ref-Primary, Physician Primary Care Provider Vicente Avalos MD Unavailable [phone] Gianna Pierre PA-C Unavailable Kory Garcia MD Unavailable Dahlia Colindres MD Unavailable [phone] Dahlia Colindres MD Unavailable [phone] Jerson Rodriguez MD Unavailable [phone] Angel James MD Unavailable [phone] Angel James MD Unavailable [phone] Kell Harding MD Primary Care Provider + [phone] Loulou Cage Unavailable Unavailable Ky Talamantes MD Unavailable [phone] Kell Harding MD Unavailable [phone] Ky Talamantes MD Unavailable [phone] Jazz Linn MD Unavailable [phone] Margarette Montemayor NP Unavailable [phone] Zina Og Unavailable Veda Diaz PA-C Unavailable Veda Diaz PA-C Unavailable Veda Diaz PA-C Unavailable None Primary Care Provider UnavailTejal Swift MD Primary Care Provider Tejal Jules MD Unavailable Encounter Details Date Type Department Care Team (Late Contact Info) Description 04/17/2022 MyC Medical Advice [facility] [address] [facility] [address] [place] [address] Vicente Avalos MD [address] 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 file Not [...] Description 02/05/2025 8:00 AM CDT Virtual Visit [facility] [address] 3[address] [place] [address] Dahlia Frost, PA-C [address] [place] [address] documented as of this encounter Visit Diagnoses Not on filedocumented in this encounter Additional Health Concerns Assessment Noted Time PHQ-9 Depression Total Score: 0 04/05/20 22 9:42 AM CDT documented as of this encounter Care Teams Hospital Superintendent Relationship Specialty Start Date End Date No Ref-Primary, Physician PCP - General 03/02/22 02/25/23 Kell Harding MD [address] [place] [address] PCP - General Internal Medicine - Pediatrics 02/26/23 02/26/24 None PCP - General 02/27/24 03/10/24 Tejal Jules MD [address] [facility] [address] [place] [address] PCP - General Family Medicine 03/11/24 Vicente Avalos MD [address] [facility] [address] [place] [address] Assigned Heart and Vascular Provider 03/03/22 08/14/24 Gianna Pierre PA-C [address] [place] [address] Assigned PCP 04/14/22 07/13/22 Kory Garcia MD [address] [place], [place] [address] Assigned PCP 07/14/22 03/01/23 Dahlia Colindres MD [address] [place], [place] [address] Ophthalmology 12/28/22 06/10/24 Dahlia Colindres MD [address] [place] [address] Assigned Surgical Provider 01/12/23 07/14/24 Jerson Rodriguez MD [address] [place] [address] [place] [id number] Internal Medicine 02/14/23 Angel James MD [address] [place] [address] Resident Internal Medicine - Pediatrics 02/14/23 02/14/23 Angel James MD [address] [place] [id number] Resident Internal Medicine - Pediatrics 02/14/23 Loulou Cage Personal Advocate & Liaison (PAL) 02/26/23 01/20/24 Ky aTlamantes MD [address] [place], [place] [phone] Neurology 03/04/23 Kell Harding MD [address] [place] [address] VENKATES[place] TRIVEDI [address] Assigned PCP 03/02/23 09/13/24 Ky Talamantes MD [address] [place] [id number] Assigned Neuroscience Provider 03/16/23 09/13/24 Jazz Linn MD [address] [place] [phone] Assigned Endocrinology Provider 08/31/23 Margarette Montemayor NP Assigned Rheumatology Provider 10/17/23 11/14/23 Zina Og MBBS [address] [place] [address] Rheumatology 11/08/23 11/19/23 Veda Diaz PA-C [address] [place] [address] Physician Program Associate Rheumatology 11/20/23 Veda Diaz PA-C [address] [place] [address] Physician Program Associate Rheumatology 11/20/23 11/20/23 Veda Diaz PA-C [address] [place] [address] Assigned Rheumatology Provider 12/06/23 Tejal Jules MD [address] [address] Assigned PCP 09/14/24 documented as of this encounter
--- OUTSIDE RECORDS SUMMARY | 2025-02-04 17:33 | XMS_ITS | Encounter Summary ---
Author Organization [facility] Address [address] [place] [address] Care Team Providers Care Recreation Adviser Name Role Phone Vicente Avalos MD Unavailable [phone] Dahlia Colindres MD Unavailable [phone] Dahlia Colindres MD Unavailable [phone] Jerson Rodriguez MD Unavailable [phone] Angel James MD Unavailable [phone] Kell Harding MD Primary Care Provider + [phone] Loulou Cage Unavailable Unavailable Ky Talamantes MD Unavailable [phone] Kell Hrading MD Unavailable [phone] Ky Talamantes MD Unavailable [phone] Jazz Linn MD Unavailable [phone] Veda Diaz PA-C Unavailable [phone] Veda Diza PA-C Unavailable + [phone] None Primary Care Provider Unavailritesh e Tejal Jules MD Primary Care Provider + [phone] Tejal Jules MD Unavailable [phone] Encounter Details Date Type Department Care Team (Late st Contact Info) Description 11/23/2023 MyC Medical Advice [facility] [address] [place] [address] Sumi Evans CMA Social History [...] on file Legal Sex 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 Gender Identity Not on file Sexual Orientation Not on file 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 Not on file Not on f ile documented as of this encounter Plan of Treatment Upcoming Encounters Date Type Department Care Team (Late st Contact Info) Description 02/05/2025 8:00 AM CDT Virtual Visit [facility] [address] [address] Dahlia Frost PA-C [address] [place] [address] documented as of this encounter Visit Diagnoses Not on filedocumented in this encounter Additional Health Concerns Assessment Noted Time PHQ-9 Depression Total Score: 0 04/05/20 22 9:42 AM CDT documented as of this encounter Care Teams Recreation Adviser Relationship Specialty Start Date End Date Kell Harding MD [address] [place] [address] PCP - General Internal Medicine - Pediatrics 02/26/23 02/26/24 None PCP - General 02/27/24 03/10/24 Tejal Jules MD [address] [place] [address] PCP - General Family Medicine 03/11/24 Vciente Avalos MD [address] [place] [address] Assigned Heart and Vascular Provider 03/03/22 08/14/24 Dahlia Colindres MD [address] [place] [address] Ophthalmology 12/28/22 06/10/24 Dahlia Colindres MD [address] [place], [place] [address] Assigned Surgical Provider 01/12/23 07/14/24 Jerson Rodriguez MD [address] [place] RANKIN [id number] Internal Medicine 02/14/23 Angel James MD [address] [place] [address], [id number] [place], [place] [address] Resident Internal Medicine - Pediatrics 02/14/23 Loulou Cage Personal Advocate & Liaison (PAL) 02/26/23 01/20/24 Ky Talamantes MD [address] [place] ASTUDILLO [id number] Neurology 03/04/23 Kell Harding MD [address] [place] [address] Assigned PCP 03/02/23 09/13/24 Ky Talamantes MD [address] [place] [address] Assigned Neuroscience Provider 03/16/23 09/13/24 Jazz Linn MD [address] [place] [phone] Assigned Endocrinology Provider 08/31/23 Veda Diaz PA-C [address] [place] [address] Physician Underground Repairer Rheumatology 11/20/23 Veda Diaz PA-C [address] [place] [address] Assigned Rheumatology Provider 12/06/23 Tejal Jules MD [address] [facility] [address] [place] [address] Assigned PCP 09/14/24 documented as of this encounter
--- OUTSIDE RECORDS SUMMARY | 2025-02-04 17:33 | XMS_ITS | Clinical Summary ---
Author Organization [email or web address] [facility] Address [address] [place] [address] Care Team Providers Care Home Health Physical Therapist Name Role Phone Phyllis Temple Unavailable [phone] Pcp, No Primary Care Provider Unavailabl e [...] 02/03/2025 Telephone [facility] [address] [place] [phone] Jadon Kwok MD Care Coordination 02/02/2025 Telephone [facility] [address] [place] [address] Uli Connor MD 01/28/2025 8:30 AM CDT - 01/28/2025 11:59 PM CDT Hospital Encounter [facility] [address] [place] [address] Uli Connor MD SOB (shortness of breath) 01/27/2025 9:00 AM CDT Orders Only [facility] [address] [place] [address] Lab 01/27/2025 Travel 01/18/2025 4:00 PM CDT Office Visit [facility] [address] [place] [address] Uli Connor MD Consult (hyperinflation lung consultation) 01/17/2025 Travel 01/13/2025 11:20 AM CDT Orders Only [facility] [address] [place] [address] Lab 01/12/2025 Travel 01/12/2025 Telephone [facility] [address] [place] [phone] Ruth Aquino, HEATHER Questions (blood sugar numbers) 12/30/2024 Orders Only [facility] Staff, Other Clinical 1 scan: (1-Ord) COMPREHENSIVE PROFILE-STOOL, 12/30/2024 12/25/2024 9:00 AM CDT Orders Only [facility] [address] [place] [address] Lab, Farm Lab 12/25/2024 Travel 12/23/[address] [place] [address] Ruth Aquino, HEATHER [facility] test kit ordered 12/18/2024 8:00 AM CDT Office Visit [address] [place] [address] Ruth Aquino, HEATHER Consult (Discuss thyroid management and women's health ) 12/17/2024 Travel 11/27/2024 8:40 AM GEOTHERMAL POWERPLANT MECHANIC Orders Only [facility] [address] [facility] [address] [place] [address] Lab 11/27/2024 Travel from Last 3 Months [...] on file Legal Sex Female 6:22 AM GEOTHERMAL POWERPLANT MECHANIC Gender Identity Not on file Sexual Orientation [...] 36.4 C (97.5 F) 11/18/2023 6:20 PM GEOTHERMAL POWERPLANT MECHANIC Respiratory Rate 14 01/30/2024 7:45 AM CDT [...] Info) Description 03/04/2025 8:30 AM CDT Telemedicine [address] [place] [phone] Ruth Aquino NP [address] [place] [phone] 06/14/2025 11:15 AM CDT Telemedicine [facility] [place] [address] [place] [phone] Loreta Marin, HEATHER [address] [place] [address] 11/08/2025 8:00 AM GEOTHERMAL POWERPLANT MECHANIC Office Visit [facility] [address] [place] [address] Gretta Caicedo PA [address] [place] [address] 11/25/2025 9:00 AM GEOTHERMAL POWERPLANT MECHANIC Office Visit [facility] [address] [place] [phone] Genoveva Renee, HEATHER [address] [place], [place] [address] Health Maintenance Due Date Last Done Comments [...] Other malaise TSH Routine 11/27/2024 9:41 AM GEOTHERMAL POWERPLANT MECHANIC Hypothyroidism, unspecified type XR MAMMO YANETH BILAT DIAG Routine 07/09/2023 9:29 AM CDT Mass of breast, unspecified laterality HPV HIGH RISK Routine 04/24/2022 10:31 AM CDT Cervical cancer screening LIPID PANEL W REFLEX MEASURED LDL Routine 04/16/2022 2:35 PM CDT Screening for lipid disorders SCAN-COLONOSCOPY 03/05/2017 8:30 AM CDT ANTI HIV 1/2 Routine 11/28/2016 4:22 PM GEOTHERMAL POWERPLANT MECHANIC Routine screening for STI (sexually transmitted infection) ANTI HCV Routine 11/28/2016 4:22 PM GEOTHERMAL POWERPLANT MECHANIC Routine screening for STI (sexually transmitted infection) [...] Connor MD Pulmonary Medicine and Critical Care [facility] Uli Connor MD PFT ORD Final Res ult [facility] [place], [place] * HEMOGLOBIN (01/28/2025 8:49 AM CDT) HEMOGLOBIN 14.0 12.0 - 16.0 g/dL 01/28/2025 8:52 AM CDT [facility] MCV 94 80 - 100 fL 01/28/2025 8:52 AM CDT [facility] Blood BLOOD SPECIMEN / Unknown Venipuncture / Unknown 01/28/2025 8:49 AM CDT 01/28/2025 8:49 AM CDT Uli Connor MD HEMATOLOGY Final Res ult Performing Organization Address [facility] Co de Phone Number [facility] [address] [place] [address], [place] [phone] * TSH (01/27/2025 8:58 AM CDT) Only [...] YES Jadon Kwok MD CHEMISTRY Final Result [facility] [address] [place] [address], [facility] [address] [place] [address] * HEMOGLOBIN A1C (01/13/2025 11:22 AM CDT) HEMOGLOBIN A1C 5.5 <5.7 % [facility]Monique wallace Anuel Comment: For the purpose of screening for the presence of diabetes: <5.7% Consistent with the absence of diabetes 5.7-6.4% Consistent with increased risk for diabetes (prediabetes) > or =6.5% Consistent with diabetes This assay result is consistent with a decreased risk of diabetes. Currently, no consensus exists regarding use of hemoglobin A1c for diagnosis of diabetes in children. According to [place] Diabetes Association (ADA) guidelines, hemoglobin A1c <7.0% represents optimal control in non- diabetic patients. Different metrics may apply to specific patient populations. Standards of Medical Care in Diabetes(ADA). Blood BLOOD SPECIMEN / Unknown 01/13/2025 11:22 AM CDT 01/13/2025 11:22 AM CDT Ruth Aquino NP CHEMISTRY Final Result Performing Organization Address [facility] Co de Phone Number [facility] [address] [place] [phone], [facility] [address] [place] [phone] * INSULIN (01/13/2025 11:22 AM CDT) INSULIN 3.9 uIU/mL [facility]e Comment: Reference Range < or = 18.4 Risk: Optimal < or = 18.4 Moderate NA High >18.4 Adult cardiovascular event risk category cut points (optimal, moderate, high) are based on Insulin Reference Interval studies performed at [facility] in 2021. Blood BLOOD SPECIMEN / Unknown 01/13/2025 11:22 AM CDT 01/13/2025 11:22 AM CDT us Ruth Aquino HAT FORMING MACHINE OPERATOR SEND OUTS Final Result [facility] [address] [place] [address], [place] [phone] [facility] [place] [address] [place] [address] * COMP METABOLIC PANEL (01/13/2025 11:22 AM CDT) Pathologist [facility] GLUCOSE 94 65 - 99 mg/dL [...] 6.1 - 8.1 g/dL [facility] ALBUMIN 4.5 3.6 - 5.1 g/dL [facility] [...] Anuel ALT 16 6 - 29 U/L [facility] Blood BLOOD SPECIMEN / Unknown 01/13/2025 11:22 AM CDT 01/13/2025 11:22 AM CDT Ruth Aqiuno HAT FORMING MACHINE OPERATOR CHEMISTRY Final Result Performing Organization Address City/[facility]/ZIP Co de Phone Number [facility] [address] [place] [address], [facility] [place] [address] [place] [address] * SCAN-DIAGNOSTIC REPORT (12/30/2024 12:00 AM CDT) Narrative 12/30/2024 12:00 AM CDT Ordered by an unspecified provider. Other Clinical Staff OTHER Final Resul t * VITAMIN D 25 (DEFICIENCY) (12/25/2024 9:07 AM CDT) VITAMIN D,25-OH,TOTAL,IA 41 30 - 100 ng/mL [facility]W chanelle Agee Comment: Vitamin D Status 25-OH Vitamin D: Deficiency: <20 ng/mL Insufficiency: 20 - 29 ng/mL Optimal: > or = 30 ng/mL For 25-OH Vitamin D testing on patients on D2-supplementation and patients for whom quantitation of D2 and D3 fractions is required, the [facility] 25-OH VIT D, (D2,D3), LC/MS/MS is recommended: order code [id number] (patients >2yrs). See Note 1 Note 1 For additional information, please refer to http://education.[employer].Your [employer]/faq/HWF991 (This link is being provided for informational/ educational purposes only.) Blood BLOOD SPECIMEN / Unknown 12/25/2024 9:07 AM CDT 12/25/2024 9:07 AM CDT Ruth Aquino HAT FORMING MACHINE OPERATOR SEND OUTS Final Result Performing Organization Address City/[facility]/ZIP Co de Phone Number [facility] [address] [place] [address], [facility] [address] [place] [address] * (ABNORMAL) EBV AB IGG IGM AND EBNA (12/25/2024 9:07 AM CDT) [facility] EBV VIRAL CAPSID AG (VCA) AB (IGM) <36.00 U/mL [facility] Anuel Comment: U/mL Interpretation ---- <36.00 Negative 36.00-43.99 Equivocal >43.99 Positive EBV VIRAL CAPSID AG (VCA) AB (IGG) >750.00(H ) U/mL [facility] Anuel Comment: U/mL Interpretation ---- <18.00 Negative 18.00-21.99 Equivocal >21.99 Positive EBV NUCLEAR AG (EBNA) AB (IGG) >600.00(H ) U/mL Marvinrodrigo Ortize Comment: U/mL Interpretation ---- <18.00 Negative 18.00-21.99 Equivocal >21.99 Positive GINA JIN VIRUS ANTIBODY PANEL INTERPRETATION [employer] chanelle Agee Comment: Suggestive of a past Gina-Jin virus infection. In infants, a similar pattern may occur as a result of passive maternal transfer of antibody. Blood BLOOD SPECIMEN / Unknown 12/25/2024 9:07 AM CDT 12/25/2024 9:07 AM CDT Ruth Aquino HAT FORMING MACHINE OPERATOR SEND OUTS Final Result [employer] [address] [address], [place] [phone] [facility] [address] [place] [address] * (ABNORMAL) IRON PLUS IRON BINDING CAP (12/25/2024 9:07 AM CDT) Pathologist [facility] IRON, TOTAL 41(L) 45 - 160 mcg/dL [facility] IRON BINDING CAPACITY 250 250 - 450 mcg/dL (calc) [facility] % SATURATION 16 16 - 45 % (calc) [facility] Blood BLOOD SPECIMEN / Unknown 12/25/2024 9:07 AM CDT 12/25/2024 9:07 AM CDT Ruth Aquino HAT FORMING MACHINE OPERATOR CHEMISTRY Final Result Performing Organization Address [facility] Co de Phone Number [facility] [address] [place] [address], [place] [phone] [facility] [address] [place] [address] * T3,FREE (12/25/2024 9:07 AM CDT) Pathologist [facility] T3, FREE 3.0 2.3 - 4.2 pg/mL [facility] nina Ortize Blood BLOOD SPECIMEN / Unknown 12/25/2024 9:07 AM CDT 12/25/2024 9:07 AM CDT Ruth Aquino HAT FORMING MACHINE OPERATOR CHEMISTRY Final Result Performing Organization Address [facility] Co de Phone Number [facility] [address] [place] [address], [place] [phone] [facility] [address] [place] [address] * T4,FREE (12/25/2024 9:07 AM CDT) Pathologist [facility] T4, FREE 1.4 0.8 - 1.8 ng/dL [facility]uel Blood BLOOD SPECIMEN / Unknown 12/25/2024 9:07 AM CDT 12/25/2024 9:07 AM CDT Ruth Aquino HAT FORMING MACHINE OPERATOR CHEMISTRY Final Result Performing Organization Address [facility]/State/ZIP Co de Phone Number [facility] [address] [place] [address], [facility] [place] [address] [place] [address] * TESTOSTERONE,TOTAL (12/25/2024 9:07 AM CDT) TESTOSTERONE, TOTAL, MS 13 2 - 45 ng/dL [facility] Comment: For additional information, please refer to https://education.[employer]wheel [employer]/faq/TotalTestosteroneLCMSMS (This link is being provided for informational/educational purposes only.) (Note) This test was developed and its analytical performance characteristics have been determined by [employer]. It has not been cleared or approved by the FDA. This assay has been validated pursuant to the CLIA regulations and is used for clinical purposes. [facility] [address] [address],[address] [place] [address] Candi Nelson MD, PhD Blood BLOOD SPECIMEN / Unknown 12/25/2024 9:07 AM CDT 12/25/2024 9:07 AM CDT Ruth Aquino HAT FORMING MACHINE OPERATOR CHEMISTRY Final Result Performing Organization Address [facility]/ZIP Co de Phone Number [facility] [address] [place] [phone], [facility] [address] [place] [address], [address] [place] [phone] * PROGESTERONE (12/25/2024 9:07 AM CDT) PROGESTERONE 6.5 ng/mL [facility] Anuel Comment: Reference Ranges Female Follicular Phase < 1.0 Luteal Phase 2.6-21.5 Post menopausal < 0.5 1st Trimester 4.1-34.0 2nd Trimester 24.0-76.0 3rd Trimester 52.0-302.0 Blood BLOOD SPECIMEN / Unknown 12/25/2024 9:07 AM CDT 12/25/2024 9:07 AM CDT Ruth Aquino HAT FORMING MACHINE OPERATOR SEND OUTS Final Result [facility] [address] [place] [address], [place] [phone] [facility] [address] [place] [address] * FERRITIN (12/25/2024 9:07 AM CDT) FERRITIN 31 16 - 232 ng/mL [facility]e Blood BLOOD SPECIMEN / Unknown 12/25/2024 9:07 AM CDT 12/25/2024 9:07 AM CDT Ruth Aquino HAT FORMING MACHINE OPERATOR CHEMISTRY Final Result Performing Organization Address [facility] de Phone Number [facility] [address] [place] [address], [place] [phone] [facility] [address] [place] [address] * ESTRADIOL (12/25/2024 9:07 AM CDT) Pathologist [facility] ESTRADIOL 72 pg/mL [facility]Helen Agee Comment: Reference Range Follicular Phase: 19-144 Mid-Cycle: 64-357 Luteal Phase: 56-214 Postmenopausal: < or = 31 Reference range established on post-pubertal patient population. No pre-pubertal reference range established using this assay. For any patients for whom low Estradiol levels are anticipated (e.g. males, pre-pubertal children and hypogonadal/post-menopausal females), the [facility] Estradiol, Ultrasensitive, LCMSMS assay is recommended (order code [id number]). Please note: patients being treated with the drug fulvestrant (Faslodex(R)) have demonstrated significant interference in immunoassay methods for estradiol measurement. The cross reactivity could lead to falsely elevated estradiol test results leading to an inappropriate clinical assessment of estrogen status. [facility] order code [id number], Ultrasensitive LC/MS/MS demonstrates negligible cross reactivity with fulvestrant. Blood BLOOD SPECIMEN / Unknown 12/25/2024 9:07 AM CDT 12/25/2024 9:07 AM CDT Ruth Aquino HAT FORMING MACHINE OPERATOR SEND OUTS Final Result Performing Organization Address [facility]/ZIP Co de Phone Number [facility] [address] [place] [address], [place] [phone] [facility] [address] [place] [address] * DHEA-SULFATE (DHEA-S) (12/25/2024 9:07 AM CDT) DHEA SULFATE 162 15 - 205 mcg/dL [facility]Monique Ortize Blood BLOOD SPECIMEN / Unknown 12/25/2024 9:07 AM CDT 12/25/2024 9:07 AM CDT Ruth Aquino HAT FORMING MACHINE OPERATOR SEND OUTS Final Result Performing Organization Address [facility] Co de Phone Number [facility] [address] [place] [address], [place] [phone] [facility] [address] [place] [address] * VITAMIN B12 (12/25/2024 9:07 AM CDT) VITAMIN B12 534 200 - 1,100 pg/mL [facility]ize Blood BLOOD SPECIMEN / Unknown 12/25/2024 9:07 AM CDT 12/25/2024 9:07 AM CDT Ruth Aquino HAT FORMING MACHINE OPERATOR CHEMISTRY Final Result [facility] [address] [place] [address], [place] [phone] [facility] [address] [facility] [place] [address] * XR MAMMO YANETH BILAT DIAG (07/09/2023 [...] 2: Benign Babs Lee M.D. Diagnostic/Breast Radiologist [email or web address] / PATIENTS: You [...] 16 Negative Negative 04/26/2022 5:29 PM CDT [facility] TYPE 18 Negative Negative 04/26/2022 5:29 PM CDT [facility] OTHER HIGH RISK TYPES Negative Negative 04/26/2022 5:29 PM CDT [facility] Other (Cervical/Vagina l) Non-Blood / Unknown 04/24/2022 10:31 AM CDT 04/25/2022 12:02 PM CDT Narrative [facility] - 04/26/2022 5:29 PM CDT HPV types 16, 18, 31, 33, 35, 39, 45, 51, 52, 56, 58, 59, 66 and 68 DNA were undetectable or below the pre-set threshold. Methodology: AppMesh Jay 4800 HPV Test us Antonia Pineda DO MICROBIOLOGY Final Result [facility] [address] [place] [address], [place] * (ABNORMAL) LIPID PANEL W REFLEX MEASURED LDL [[id number]] (04/16/2022 2:35 PM CDT) CHOLESTEROL,TOTAL 200(H) 100 - 199 mg/dL 04/17/2022 1:11 AM CDT [facility] TRIGLYCERIDES 66 <150 mg/dL 04/17/2022 1:11 AM CDT [facility] HDL CHOLESTEROL 62 >40 mg/dL 1:11 AM CDT [facility] NON-HDL CHOLESTEROL 138 <145 mg/dl 04/17/2022 1:11 AM CDT [facility] CHOL/HDL RATIO 3.23 <4.50 04/17/2022 1:11 AM CDT [facility] LDL CHOLESTEROL 125 <=130 mg/dL 04/17/2022 1:11 AM CDT [facility] VLDL CHOLESTEROL 13 <=30 mg/dL 04/17/2022 1:11 AM CDT [facility] PROVIDER ORDERED STATUS RANDOM 04/17/2022 1:11 AM CDT [facility] Blood BLOOD SPECIMEN / Unknown Venipuncture / Unknown 04/16/2022 2:35 PM CDT 04/16/2022 2:36 PM CDT us Tripp Sosa DO CHEMISTRY Final Res ult [facility] [address] [place] [address], [place] * SCAN-COLONOSCOPY (03/05/2017 8:30 AM CDT) Narrative Procedure Note Ruth He MD - 03/05/2017 7:50 AM CDT [facility] [address], [address], [place] [address] Patient Name: Ila Moore Gender: Female Exam Date: 03/05/2017 Visit Number: [id number] Age: 41 Years Date of : 1975 Attending MD: Ruth He MD Medical Record#: [id number] ----- Procedure: Colonoscopy Indications: Family history of [...] thantypical (Lenore Singh. S. (2013) Am.J.Gastroenterol., PMID [id number]). MICROSCOPIC A: Performed B: Performed C: Performed [...] t * ANTI HCV (11/28/2016 4:22 PM GEOTHERMAL POWERPLANT MECHANIC) HEPATITIS C ANTIBODY Non-Reacti ve Non-Reacti ve 11/28/2016 11:02 PM GEOTHERMAL POWERPLANT MECHANIC [facility] Blood BLOOD SPECIMEN / Unknown Venipuncture / Unknown 11/28/2016 4:22 PM GEOTHERMAL POWERPLANT MECHANIC 11/28/2016 4:22 PM GEOTHERMAL POWERPLANT MECHANIC Narrative [facility] - 11/28/2016 11:02 PM GEOTHERMAL POWERPLANT MECHANIC Antibodies to HCV not detected; does not exclude the possibility of exposure to HCV. Zenaida Lundberg MD SEND OUTS Final Resu lt [facility] [address] [place] [address], * ANTI HIV 1/2 (11/28/2016 4:22 PM GEOTHERMAL POWERPLANT MECHANIC) Pathologist [facility] HIV-1/HIV-2 ANTIBODY Non-Reacti ve Non-Reacti ve 11/28/2016 10:57 PM GEOTHERMAL POWERPLANT MECHANIC [facility] Blood BLOOD SPECIMEN / Unknown Venipuncture / Unknown 11/28/2016 4:22 PM GEOTHERMAL POWERPLANT MECHANIC 11/28/2016 4:22 PM GEOTHERMAL POWERPLANT MECHANIC Narrative [facility] - 11/28/2016 10:57 PM GEOTHERMAL POWERPLANT MECHANIC HIV-1 p24 and HIV-1/HIV-2 Ab not detected us Zenaida Lundberg MD SEND OUTS Final Resu lt Performing Organization Address City/[facility]/ZIP Co de Phone Number [facility] [address] [place] [address], from Last 3 Months or Most Recently Relevant to Health Maintenance Insurance [facility] Care Teams Home Health Physical Therapist Relationship Specialty Start Date End Date Pcp, No . PCP - General 01/19/25 Phyllis Temple MBBS [address] [place] [address] Endocrinology 06/03/23
--- OUTSIDE RECORDS SUMMARY | 2025-02-04 17:33 | XMS_ITS | Clinical Summary ---
Author Organization [facility] Address [address] [place] [id number] Care Team Providers Care Wicker Molded Candles Name Role Phone Steff Hurtado DNP, DREDGE HAND, HARDNESS INSPECTOR Primary Care Pro vider Source Comments You are receiving this document as you are listed as the primary care provider,follow-up provider, or the patient has been referred to you for consultation.This is in compliance with the Medicare and[facility] EHR Incentive Program,which states Providers who transition their patient to another setting of careor provider of care or refers their patient to another provider of care shouldprovide summary care record for each transition of care or referral. [facility] Allergies No known active allergies Medications cholecalciferol (VITAMIN D3) 1.25 MG (66981 UT) capsule Take 1 Capsule (50,000 Units) by mouth once every week. 12 Capsule 01/23/2024 Active UNITHROID 125 MCG tablet Take 1 Tablet (125 mcg) by mouth daily. Active Active Problems Problem Noted Date Diagnosed Date Vomiting 01/23/2024 Primary hypothyroidism 12/05/2023 Carotid artery aneurysm 10/24/2023 Overview (12/02/2023): MRA completed at [facility] 09/18/23 showing possible 3 mm aneurysm in [...] 04/27/1980, 6,01/13/1975,1974,1974 Flu Vac (3+ yrs) 06/23/2009 [id number] 09/21/2009 HepA Adult (19+ yrs) 07/01/2006,12/11/2005 HepA, [...] LDL(If Needed) (12/05/2023 12:24 PM CDT) Pathologist [facility] [place] Cholesterol 188 0 - 199 mg/dL 12/05/2023 4:34 PM CDT [facility] Triglyceride 47 <=149 mg/dL 12/05/2023 4:34 PM CDT [facility] HDL Cholesterol 58 >=40 mg/dL 4:34 PM CDT [facility] LDL, Calculated 121 <130 mg/dL 4:34 PM CDT [facility] Non HDL Chol, Calculated 130 <=159 mg/dL 12/05/2023 4:34 PM CDT [facility] Cholesterol/HDL Ratio 3.2 <=5.0 12/05/2023 4:34 PM CDT [facility] Hours Fasting 12.0 8 - 12 Hours 12/05/2023 4:34 PM CDT [facility] Blood Venipuncture / Unknown 12/05/2023 12:24 PM CDT 12/05/2023 12:24 PM CDT us Steff Hurtado DNP, DREDGE HAND, HARDNESS INSPECTOR LAB_1 F inal Result Performing Organization Address City/State/[facility] Co de Phone Number [facility] [address] [place] [id number] * Hepatitis C Antibody, with Reflex (12/05/2023 12:24 PM CDT) Pathologist [facility] [place] Hepatitis C Antibody Negative (Non Reactive) Negative (Non Reactive) 12/05/2023 9:16 PM CDT [facility] Comment:Antibodies to HCV no t detected. Does not exclude the possiblity of exposure to HCV. Blood Venipuncture / Unknown 12/05/2023 12:24 PM CDT 12/05/2023 12:24 PM CDT us Steff Hurtado DNP, DREDGE HAND, HARDNESS INSPECTOR LAB_1 F inal Result [facility] [address] * Pap Smear (05/03/2006 12:10 PM CDT) PAP Smear Liquid Based SEE TEXT No normal range [facility] CONVERSION Comment: Patient: ILA MOORE CERVICAL CYTOLOGY REPORT Pathology # [id number] Date Obtained: Date Received: CYTOLOGIC IMPRESSION: Negative for intraepithelial lesion or malignancy. Verified 05/15/06 by: KGM (electronic signature) ADDITIONAL DATA LMP: CLINICAL HIST POST MISCAR LIQUID BASED PAP CERVICAL SPECIMEN ADEQUACY: Satisfactory. ENDOCERVICAL CELLS: Present. 05/03/2006 12:1 0 PM CDT us Eamon Bryant MD LAB_1 Final Result Performing Organization Address City/[facility] Co de Phone Number [facility] CONVERSION * HIV Antibody (05/03/2006 10:16 AM CDT) HIV 1/HIV 2 Non Reac Non Reac HP CONVERSION 05/03/2006 10:1 6 AM CDT us Eamon Bryant MD LAB_1 Final Result Performing Organization Address City/State/[facility] Co de Phone Number HP CONVERSION from Last 3 Months or Most Recently Relevant to Health Maintenance Insurance HP [employer] INSURED HP [employer]URED Care Teams Wicker Molded Candles Relationship Specialty Start Date End Date Steff Hurtado, DNP, DREDGE HAND, HARDNESS INSPECTOR [id number] [place] [address] PCP - General Nurse Practitioner 06/15/23
== END 2025-02-04 14:01 | disposition home or self-care (01) ==
PROVIDERS: Emergency Provider Emergency Medicine; PCP Family Medicine
DX: R42 Dizziness and giddiness (principal)
CPT/HCPCS: 36415; 80053; 80076; 84439; 84443; 84484; 85025; 93005; 99284

== ENCOUNTER 2025-03-03 07:36 | Outpatient (CLI) | payer OTHER, SELFPAY | END 2025-03-03 07:37 | disposition home or self-care (01) | LOC: NFLDREF 03-04 19:32 | PROVIDERS: PCP Family Medicine; Referring Provider Family Medicine; Visit Provider Physician Assistant Medical | DX: E06.3 Autoimmune thyroiditis (principal) | CPT/HCPCS: 83520; 84439; 84443; 84481; 86376 ==

== ENCOUNTER 2025-07-22 09:05 | Outpatient (CLI) | payer OTHER, SELFPAY | END 2025-07-22 09:06 | disposition home or self-care (01) | LOC: NFLDREF 09:05 | PROVIDERS: PCP Family Medicine; Visit Provider Internal Medicine | DX: H02.829 Cysts of unspecified eye, unspecified eyelid (principal) | CPT/HCPCS: 80061 ==